=== PATIENT | female | born 1935 | race Two or more races ===

== ENCOUNTER → 2017-11-05 | Outpatient (CLI) | payer MEDICARE ==
[~2017-11-05] MED LIST: FUROSEMIDE 100 MG/10ML VIAL IV ONE; FUROSEMIDE 40 MG/4 ML VIAL ONE; POTASSIUM CHL 10 Meq TABLET PO ONE; POTASSIUM CHL 20 Meq TABLET PO ONE
[2017-11-05 10:00] VITALS: BP 167/68
[2017-11-05 10:50] VITALS: BP 149/68
[2017-11-05 12:07] LABS: Basophils # (auto) 0.1 uL; Basophils % (auto) 1.2 % (0.0-2.0); Eosinophils # (auto) 0.1 uL; Eosinophils % (auto) 2.2 % (0.0-7.0); Hematocrit 34.9 % (36.0-46.0); Hemoglobin 11.2 g/dL (12.2-16.2); Lymphocytes # (auto) 0.7 uL; Lymphocytes % (auto) 13.8 % (10.0-50.0); Mean Corpuscular Hemoglobin 28.7 pg (28.0-32.0); Mean Corpuscular Hgb Conc. 32.1 g/dL (32.0-36.0); Mean Corpuscular Volume 89.5 fL (80.0-100.0); Monocytes # (auto) 0.4 uL; Monocytes % (auto) 8.7 % (0.0-12.0); Neutrophils # (auto) 3.5 uL; Neutrophils % (auto) 74.1 % (37.0-80.0); Nucleated Red Blood Cells % 0.1 %; Platelet Count (auto) 313 10^3/uL (140-450); White Blood Cell 4.8 10^3/uL (4.4-10.8)
[2017-11-05 12:30] LABS: BUN/Creatinine Ratio 21.4; Calcium 8.4 mg/dL (8.5-10.1); Magnesium 2.3 mg/dL (1.6-2.6); Potassium 4.9 mmol/L (3.5-5.1)
== END | disposition home or self-care (01) ==
LOC: CHF HDHVI 10:05
PROVIDERS: ATTEND Internal Medicine Cardiovascular Disease
DX: I50.23 Acute on chronic systolic (congestive) heart failure (principal); D64.9 Anemia, unspecified; R60.0 Localized edema
CPT/HCPCS: 36415; 80048; 83735; 83880; 85025; 96374; G0463; J1940

== ENCOUNTER → 2017-11-10 | Outpatient (CLI) | payer MEDICARE ==
[~2017-11-10] MED LIST changes: -FUROSEMIDE 100 MG/10ML VIAL IV ONE; +FUROSEMIDE 20 MG/2 ML VIAL IV SCH; +FUROSEMIDE 20 MG/2 ML VIAL ONE; +FUROSEMIDE 40 MG TAB ONE
[2017-11-10 17:00] VITALS: BP 168/87
== END | disposition home or self-care (01) ==
LOC: CHF HDHVI 16:21
PROVIDERS: ATTEND Internal Medicine Cardiovascular Disease
DX: I11.0 Hypertensive heart disease with heart failure (principal); I50.23 Acute on chronic systolic (congestive) heart failure; I25.10 Atherosclerotic heart disease of native coronary artery without angina pectoris; R60.0 Localized edema; D64.9 Anemia, unspecified
CPT/HCPCS: 96374; G0463; J1940

== ENCOUNTER → 2017-11-11 | Outpatient (CLI) | payer MEDICARE ==
[~2017-11-11] MED LIST changes: -FUROSEMIDE 20 MG/2 ML VIAL IV SCH; -FUROSEMIDE 20 MG/2 ML VIAL ONE; -FUROSEMIDE 40 MG TAB ONE; +FUROSEMIDE 40 MG/4 ML VIAL IV ONE
[2017-11-11 15:25] VITALS: BP 172/86
[2017-11-11 16:05] VITALS: BP 164/88
[2017-11-11 16:07] VITALS: BP 164/88
[2017-11-11 16:12] LABS: Basophils # (auto) 0 uL; Eosinophils # (auto) 0.2 uL; Eosinophils % (auto) 3.6 % (0.0-7.0); Hematocrit 33.4 % (36.0-46.0); Hemoglobin 10.7 g/dL (12.2-16.2); Lymphocytes # (auto) 0.8 uL; Lymphocytes % (auto) 18.7 % (10.0-50.0); Mean Corpuscular Hemoglobin 28.4 pg (28.0-32.0); Mean Corpuscular Volume 88.7 fL (80.0-100.0); Monocytes # (auto) 0.5 uL; Monocytes % (auto) 10.9 % (0.0-12.0); Neutrophils # (auto) 2.7 uL; Neutrophils % (auto) 65.8 % (37.0-80.0); Platelet Count (auto) 365 10^3/uL (140-450); Red Blood Cells 3.76 10^6/uL (4.0-5.20); Red Cell Distribution Width 17.6 % (11.8-14.3); White Blood Cell 4.1 10^3/uL (4.4-10.8)
[2017-11-11 16:23] LABS: BUN/Creatinine Ratio 21.7; Calcium 8.1 mg/dL (8.5-10.1); Potassium 5.1 mmol/L (3.5-5.1)
== END | disposition home or self-care (01) ==
LOC: Rad HDHVI 14:45
PROVIDERS: ATTEND Internal Medicine Cardiovascular Disease
DX: I11.0 Hypertensive heart disease with heart failure (principal); I50.23 Acute on chronic systolic (congestive) heart failure; D64.9 Anemia, unspecified; I25.10 Atherosclerotic heart disease of native coronary artery without angina pectoris; R60.0 Localized edema; I42.0 Dilated cardiomyopathy; J90 Pleural effusion, not elsewhere classified; I08.1 Rheumatic disorders of both mitral and tricuspid valves; I27.21 Secondary pulmonary arterial hypertension
CPT/HCPCS: 36415; 80048; 85025; 93306; 96374; G0463; J1940

== ENCOUNTER → 2017-11-18 | Outpatient (CLI) | payer MEDICARE ==
[~2017-11-18] MED LIST changes: +BUMETANIDE (0.25MG/ML) 4 ML VIAL IV ONE; +BUMETANIDE (0.25MG/ML) 4 ML VIAL ONE; +CYANOCOBALAMIN (B-12) 1000 MCG/1 ML VIAL IM ONE; +CYANOCOBALAMIN (B-12) 1000 MCG/1 ML VIAL ONE; -FUROSEMIDE 40 MG/4 ML VIAL IV ONE; -FUROSEMIDE 40 MG/4 ML VIAL ONE; -POTASSIUM CHL 10 Meq TABLET PO ONE; -POTASSIUM CHL 20 Meq TABLET PO ONE; +cloNIDine HCL 0.1 MG TAB ONE; +cloNIDine HCL 0.1 MG TAB PO ONE
[2017-11-18 16:00] VITALS: BP 167/95
== END | disposition home or self-care (01) ==
LOC: CHF HDHVI 14:57
PROVIDERS: ATTEND Internal Medicine Cardiovascular Disease
DX: I11.0 Hypertensive heart disease with heart failure (principal); I50.23 Acute on chronic systolic (congestive) heart failure; I25.10 Atherosclerotic heart disease of native coronary artery without angina pectoris; I08.1 Rheumatic disorders of both mitral and tricuspid valves; I42.0 Dilated cardiomyopathy; R60.0 Localized edema
CPT/HCPCS: 96372; 96374; G0463; J3420

== ENCOUNTER → 2017-11-25 | Outpatient (CLI) | payer MEDICARE ==
[~2017-11-25] MED LIST changes: -BUMETANIDE (0.25MG/ML) 4 ML VIAL IV ONE; -BUMETANIDE (0.25MG/ML) 4 ML VIAL ONE; -CYANOCOBALAMIN (B-12) 1000 MCG/1 ML VIAL IM ONE; -CYANOCOBALAMIN (B-12) 1000 MCG/1 ML VIAL ONE; +FUROSEMIDE 40 MG/4 ML VIAL IV ONE; +FUROSEMIDE 40 MG/4 ML VIAL ONE; +POTASSIUM CHL 10 Meq TABLET PO ONE; -cloNIDine HCL 0.1 MG TAB ONE; -cloNIDine HCL 0.1 MG TAB PO ONE
[2017-11-25 09:50] VITALS: BP 154/86
[2017-11-25 10:50] VITALS: BP 166/91
[2017-11-25 12:11] LABS: Basophils # (auto) 0 uL; Basophils % (auto) 0.9 % (0.0-2.0); Eosinophils # (auto) 0.1 uL; Eosinophils % (auto) 3.5 % (0.0-7.0); Hematocrit 36.7 % (36.0-46.0); Hemoglobin 11.6 g/dL (12.2-16.2); Lymphocytes # (auto) 0.6 uL; Lymphocytes % (auto) 14.9 % (10.0-50.0); Mean Corpuscular Hgb Conc. 31.5 g/dL (32.0-36.0); Mean Corpuscular Volume 88.8 fL (80.0-100.0); Monocytes # (auto) 0.4 uL; Neutrophils # (auto) 2.8 uL; Neutrophils % (auto) 70.7 % (37.0-80.0); Nucleated Red Blood Cells % 0.3 %; Platelet Count (auto) 345 10^3/uL (140-450); Red Blood Cells 4.13 10^6/uL (4.0-5.20); Red Cell Distribution Width 17.2 % (11.8-14.3)
[2017-11-25 12:21] LABS: Potassium 4.6 mmol/L (3.5-5.1)
== END | disposition home or self-care (01) ==
LOC: CHF HDHVI 09:57
PROVIDERS: ATTEND Internal Medicine Cardiovascular Disease
DX: R60.0 Localized edema (principal); I11.0 Hypertensive heart disease with heart failure; I50.23 Acute on chronic systolic (congestive) heart failure; I25.10 Atherosclerotic heart disease of native coronary artery without angina pectoris; I42.0 Dilated cardiomyopathy; D64.9 Anemia, unspecified
CPT/HCPCS: 36415; 82565; 84132; 84520; 85025; 96374; G0463; J1940

== ENCOUNTER → 2017-12-04 | Outpatient (CLI) | payer MEDICARE ==
[~2017-12-04] MED LIST changes: -POTASSIUM CHL 10 Meq TABLET PO ONE; +POTASSIUM CHL 20 Meq TABLET PO ONE
[2017-12-04 15:20] VITALS: BP 182/100
[2017-12-04 15:53] VITALS: BP 179/100
== END | disposition home or self-care (01) ==
LOC: CHF HDHVI 15:19
PROVIDERS: ATTEND Internal Medicine Cardiovascular Disease
DX: R60.0 Localized edema (principal); I25.10 Atherosclerotic heart disease of native coronary artery without angina pectoris; I11.0 Hypertensive heart disease with heart failure; I50.23 Acute on chronic systolic (congestive) heart failure; I42.0 Dilated cardiomyopathy; E87.6 Hypokalemia
CPT/HCPCS: 96374; G0463; J1940

== ENCOUNTER → 2017-12-15 | Outpatient (CLI) | payer MEDICARE ==
[~2017-12-15] MED LIST changes: +FURO40TA4 PO; +FUROSEMIDE 40 MG TAB ONE; +LEVO25TA6 PO; +POTA-165 PO; +POTASSIUM CHL 10 Meq TABLET PO ONE; +SACU1TAB7 PO
[2017-12-15 16:20] VITALS: BP 172/95
== END | disposition home or self-care (01) ==
LOC: CHF HDHVI 15:15
PROVIDERS: ATTEND Internal Medicine Cardiovascular Disease
DX: R60.0 Localized edema (principal); I25.10 Atherosclerotic heart disease of native coronary artery without angina pectoris; I11.0 Hypertensive heart disease with heart failure; I50.23 Acute on chronic systolic (congestive) heart failure; E03.9 Hypothyroidism, unspecified; I42.0 Dilated cardiomyopathy; Z79.899 Other long term (current) drug therapy
CPT/HCPCS: 96374; G0463; J1940; 96365

== ENCOUNTER 2017-12-30 12:39 | Day surgery (SDC) | payer MEDICARE ==
[~2017-12-30] VITALS: Ht 152.4 cm; Wt 56.0 kg
[~2017-12-30 12:39] MED LIST changes: -FUROSEMIDE 40 MG TAB ONE; -FUROSEMIDE 40 MG/4 ML VIAL IV ONE; -FUROSEMIDE 40 MG/4 ML VIAL ONE; -POTASSIUM CHL 10 Meq TABLET PO ONE; -POTASSIUM CHL 20 Meq TABLET PO ONE
[2017-12-30] MEDS ORDERED: IODIXANOL 320MG/ML 100ML BTL IV ONE ×2 (12:42→14:18)
[2017-12-30] MEDS ORDERED: LIDOCAINE 2%HCL (LOCAL ANESTH.) INJ 10ml MDV ONE ×2 (12:42→14:15)
[2017-12-30] MEDS ORDERED: MIDAZOLAM HCL 1MG/1ML-2 ML VIAL ONE (14:15)
[2017-12-30] MEDS ORDERED: SODIUM CHL 0.9% 0 ML ONE (14:15)
[2017-12-30] MEDS ORDERED: fentaNYL CITRATE 100 MCG/2 ML VL ONE (14:15)
[2017-12-30] MEDS ORDERED: ANGIOMAX 250 MG VIAL IV ONE (14:15)
[2017-12-30] MEDS ORDERED: NITROGLYCERIN 0.4MG/DOSE SPRAY 4.9GM ONE (14:35)
[2017-12-30] MEDS ORDERED: cloNIDine HCL 0.1 MG TAB ONE (17:54)
[2017-12-30] MEDS ORDERED: cloNIDine HCL 0.1 MG TAB PO ONE (18:00)
== END 2017-12-30 19:15 | disposition home or self-care (01) ==
LOC: CATH 12:39
PROVIDERS: ATTEND Internal Medicine Cardiovascular Disease
DX: I42.0 Dilated cardiomyopathy (principal); I27.20 Pulmonary hypertension, unspecified; I11.9 Hypertensive heart disease without heart failure; I73.9 Peripheral vascular disease, unspecified; N28.9 Disorder of kidney and ureter, unspecified; Z82.49 Family history of ischemic heart disease and other diseases of the circulatory system; Z79.899 Other long term (current) drug therapy
CPT/HCPCS: 93460; C1760; C1894; J1644; J2001; J2250; J3010; J7030; Q9967; 99152; A6257

== ENCOUNTER → 2018-01-07 | Outpatient (CLI) | payer OTHER, MEDICAID ==
[~2018-01-07] MED LIST changes: +FUROSEMIDE 100 MG/10ML VIAL IV ONE; +FUROSEMIDE 40 MG/4 ML VIAL ONE; +POTASSIUM CHL 10 Meq TABLET PO ONE; +POTASSIUM CHL 20 Meq TABLET PO ONE
[2018-01-07 15:30] VITALS: BP 142/100
[2018-01-07 17:05] VITALS: BP 160/90
== END | disposition home or self-care (01) ==
LOC: CHF HDHVI 15:33
PROVIDERS: ATTEND Internal Medicine Cardiovascular Disease
DX: I42.9 Cardiomyopathy, unspecified (principal); I27.21 Secondary pulmonary arterial hypertension; R06.02 Shortness of breath; I11.0 Hypertensive heart disease with heart failure; I50.23 Acute on chronic systolic (congestive) heart failure; I25.10 Atherosclerotic heart disease of native coronary artery without angina pectoris; Z79.899 Other long term (current) drug therapy
CPT/HCPCS: 93701; 96374; G0463; J1940

== ENCOUNTER → 2018-01-16 | Outpatient (CLI) | payer OTHER, MEDICAID ==
[~2018-01-16] MED LIST changes: +CYANOCOBALAMIN (B-12) 1000 MCG/1 ML VIAL IM ONE; +CYANOCOBALAMIN (B-12) 1000 MCG/1 ML VIAL ONE; -FUROSEMIDE 100 MG/10ML VIAL IV ONE; -FUROSEMIDE 40 MG/4 ML VIAL ONE; -POTASSIUM CHL 10 Meq TABLET PO ONE; -POTASSIUM CHL 20 Meq TABLET PO ONE
[2018-01-16 14:00] VITALS: BP 157/85
[2018-01-16 14:45] VITALS: BP 150/80
[2018-01-16 15:54] LABS: Basophils # (auto) 0 uL; Basophils % (auto) 0.7 % (0.0-2.0); Eosinophils # (auto) 0.1 uL; Eosinophils % (auto) 2.7 % (0.0-7.0); Hematocrit 33.7 % (36.0-46.0); Hemoglobin 10.6 g/dL (12.2-16.2); Lymphocytes # (auto) 0.9 uL; Lymphocytes % (auto) 19.7 % (10.0-50.0); Mean Corpuscular Hemoglobin 28.1 pg (28.0-32.0); Mean Corpuscular Hgb Conc. 31.6 g/dL (32.0-36.0); Mean Corpuscular Volume 88.9 fL (80.0-100.0); Monocytes # (auto) 0.4 uL; Monocytes % (auto) 9.9 % (0.0-12.0); Nucleated Red Blood Cells % 0.2 %; Platelet Count (auto) 336 10^3/uL (140-450); Red Blood Cells 3.79 10^6/uL (4.0-5.20); Red Cell Distribution Width 16.1 % (11.8-14.3); White Blood Cell 4.4 10^3/uL (4.4-10.8)
[2018-01-16 16:16] LABS: Albumin 1.9 g/dL (3.4-5.0); BUN/Creatinine Ratio 23.2; Bilirubin, Total 0.3 mg/dL (0.2-1.0); Calcium 8.1 mg/dL (8.5-10.1); Magnesium 2.6 mg/dL (1.6-2.6); Potassium 4.4 mmol/L (3.5-5.1)
== END | disposition home or self-care (01) ==
LOC: CHF HDHVI 14:05
PROVIDERS: ATTEND Internal Medicine Cardiovascular Disease
DX: I27.21 Secondary pulmonary arterial hypertension (principal); D64.9 Anemia, unspecified; I11.0 Hypertensive heart disease with heart failure; I50.23 Acute on chronic systolic (congestive) heart failure; I25.10 Atherosclerotic heart disease of native coronary artery without angina pectoris; I42.0 Dilated cardiomyopathy; E03.9 Hypothyroidism, unspecified; E83.40 Disorders of magnesium metabolism, unspecified; Z79.899 Other long term (current) drug therapy
CPT/HCPCS: 36415; 80053; 82306; 83036; 83735; 83880; 84443; 85025; 96372; G0463; J3420

== ENCOUNTER → 2018-01-26 | Outpatient (CLI) | payer OTHER, MEDICAID ==
[~2018-01-26] VITALS: Ht 30.5 cm; Wt 0.5 kg
[~2018-01-26] MED LIST changes: -CYANOCOBALAMIN (B-12) 1000 MCG/1 ML VIAL IM ONE; -CYANOCOBALAMIN (B-12) 1000 MCG/1 ML VIAL ONE; +FUROSEMIDE 20 MG/2 ML VIAL ONE; +FUROSEMIDE 40 MG/4 ML VIAL ONE; +POTASSIUM CHL 10 Meq TABLET PO ONE
[2018-01-26 14:15] VITALS: BP 159/93
[2018-01-26] MEDS: FUROSEMIDE 20 MG/2 ML VIAL IV SCH (14:50)
[2018-01-26 15:15] VITALS: BP 160/90
[2018-01-26 16:18] LABS: Basophils # (auto) 0 uL; Basophils % (auto) 0.7 % (0.0-2.0); Eosinophils # (auto) 0.1 uL; Eosinophils % (auto) 2.7 % (0.0-7.0); Hematocrit 35.4 % (36.0-46.0); Hemoglobin 11.2 g/dL (12.2-16.2); Lymphocytes # (auto) 0.9 uL; Lymphocytes % (auto) 20.2 % (10.0-50.0); Mean Corpuscular Hgb Conc. 31.6 g/dL (32.0-36.0); Mean Corpuscular Volume 88.7 fL (80.0-100.0); Monocytes # (auto) 0.5 uL; Monocytes % (auto) 11.6 % (0.0-12.0); Neutrophils # (auto) 2.8 uL; Neutrophils % (auto) 64.8 % (37.0-80.0); Nucleated Red Blood Cells % 0.1 %; Platelet Count (auto) 325 10^3/uL (140-450); Red Blood Cells 3.99 10^6/uL (4.0-5.20); Red Cell Distribution Width 16.4 % (11.8-14.3); White Blood Cell 4.3 10^3/uL (4.4-10.8)
[2018-01-26 16:23] LABS: BUN/Creatinine Ratio 20.2; Calcium 8.1 mg/dL (8.5-10.1); Potassium 4.5 mmol/L (3.5-5.1)
== END | disposition home or self-care (01) ==
LOC: CHF HDHVI 14:02
PROVIDERS: ATTEND Internal Medicine Cardiovascular Disease
DX: I27.21 Secondary pulmonary arterial hypertension (principal); I25.10 Atherosclerotic heart disease of native coronary artery without angina pectoris; I11.0 Hypertensive heart disease with heart failure; I50.23 Acute on chronic systolic (congestive) heart failure; I42.0 Dilated cardiomyopathy; D64.9 Anemia, unspecified; E03.9 Hypothyroidism, unspecified; Z79.899 Other long term (current) drug therapy
CPT/HCPCS: 36415; 80048; 83880; 84443; 85025; 94618; 96374; G0463; J1940

== ENCOUNTER → 2018-02-03 | Outpatient (CLI) | payer MEDICARE, MEDICAID ==
[~2018-02-03] VITALS: Ht 30.5 cm; Wt 54.1 kg
[~2018-02-03] MED LIST changes: +FUROSEMIDE 20 MG/2 ML VIAL IV SCH; -FUROSEMIDE 40 MG/4 ML VIAL ONE; -POTA-165 PO; +POTA-180 PO
[2018-02-03 15:00] VITALS: BP 146/67
[2018-02-03 16:04] LABS: Potassium 4.2 mmol/L (3.5-5.1)
== END | disposition home or self-care (01) ==
LOC: CHF HDHVI 14:58
PROVIDERS: ATTEND Internal Medicine Cardiovascular Disease
DX: R94.4 Abnormal results of kidney function studies (principal); E87.6 Hypokalemia; I27.21 Secondary pulmonary arterial hypertension; I11.0 Hypertensive heart disease with heart failure; I50.23 Acute on chronic systolic (congestive) heart failure; I25.10 Atherosclerotic heart disease of native coronary artery without angina pectoris; I42.0 Dilated cardiomyopathy; E03.9 Hypothyroidism, unspecified; Z79.899 Other long term (current) drug therapy
CPT/HCPCS: 36415; 82565; 84132; 84520; 96374; G0463; J1940

== ENCOUNTER → 2018-02-09 | Outpatient (CLI) | payer MEDICARE, MEDICAID ==
[~2018-02-09] MED LIST changes: +AMIODARONE HCL 200 MG TAB ONE; +AMIODARONE HCL 200 MG TAB PO ONE; +ASPirin 325 MG TAB PO ONE; +ASPirin 81 mg TAB ONE; -FUROSEMIDE 20 MG/2 ML VIAL IV SCH; -FUROSEMIDE 20 MG/2 ML VIAL ONE; +MAGNESIUM SULFATE 1GM/100ML 100 ML IV ONE; +POTASSIUM CHL 20 Meq TABLET PO ONE
[2018-02-09 16:13] LABS: Basophils # (auto) 0 uL; Basophils % (auto) 0.7 % (0.0-2.0); Eosinophils # (auto) 0.1 uL; Hematocrit 31.4 % (36.0-46.0); Hemoglobin 9.9 g/dL (12.2-16.2); Lymphocytes # (auto) 0.9 uL; Lymphocytes % (auto) 21.6 % (10.0-50.0); Mean Corpuscular Hemoglobin 27.9 pg (28.0-32.0); Mean Corpuscular Hgb Conc. 31.7 g/dL (32.0-36.0); Mean Corpuscular Volume 88.1 fL (80.0-100.0); Monocytes # (auto) 0.6 uL; Monocytes % (auto) 13.5 % (0.0-12.0); Neutrophils # (auto) 2.6 uL; Neutrophils % (auto) 61.2 % (37.0-80.0); Nucleated Red Blood Cells % 0.1 %; Platelet Count (auto) 341 10^3/uL (140-450); Red Blood Cells 3.56 10^6/uL (4.0-5.20); Red Cell Distribution Width 15.6 % (11.8-14.3); White Blood Cell 4.2 10^3/uL (4.4-10.8)
[2018-02-09 16:15] VITALS: BP 116/71
[2018-02-09 16:30] LABS: Albumin 1.9 g/dL (3.4-5.0); BUN/Creatinine Ratio 18.3; Calcium 7.9 mg/dL (8.5-10.1); Magnesium 2.2 mg/dL (1.6-2.6)
[2018-02-09 16:36] LABS: Bilirubin, Total 0.3 mg/dL (0.2-1.0); Potassium 4.4 mmol/L (3.5-5.1); Total Protein 7.1 g/dL (6.4-8.2)
== END | disposition home or self-care (01) ==
LOC: CHF HDHVI 14:01
PROVIDERS: ATTEND Internal Medicine Cardiovascular Disease
DX: I11.0 Hypertensive heart disease with heart failure (principal); I50.43 Acute on chronic combined systolic (congestive) and diastolic (congestive) heart failure; I25.10 Atherosclerotic heart disease of native coronary artery without angina pectoris; E03.9 Hypothyroidism, unspecified; D64.9 Anemia, unspecified; I73.9 Peripheral vascular disease, unspecified
CPT/HCPCS: 36415; 80053; 83735; 83880; 85025; 93005; 96365; 96366; G0463; J3475

== ENCOUNTER → 2018-02-10 | Outpatient (CLI) | payer MEDICARE, MEDICAID ==
[~2018-02-10] VITALS: Ht 30.5 cm; Wt 0.5 kg
[~2018-02-10] MED LIST changes: -AMIODARONE HCL 200 MG TAB ONE; -AMIODARONE HCL 200 MG TAB PO ONE; -ASPirin 325 MG TAB PO ONE; -ASPirin 81 mg TAB ONE; +FUROSEMIDE INJECTION 10 ML ONE; +FUROSEMIDE INJECTION 100 MG in SODIUM CHL 0.9% 100 ML IV SCH; +InsuLIN REG 1unit/0.01ml Soln (100units/ml) ONE; -MAGNESIUM SULFATE 1GM/100ML 100 ML IV ONE; -POTASSIUM CHL 20 Meq TABLET PO ONE
[2018-02-10 15:30] VITALS: BP 152/74
== END | disposition home or self-care (01) ==
LOC: CHF HDHVI 12:18
PROVIDERS: ATTEND Internal Medicine Cardiovascular Disease
DX: I11.0 Hypertensive heart disease with heart failure (principal); I50.43 Acute on chronic combined systolic (congestive) and diastolic (congestive) heart failure; D64.9 Anemia, unspecified; E87.6 Hypokalemia; I25.10 Atherosclerotic heart disease of native coronary artery without angina pectoris; E03.9 Hypothyroidism, unspecified; I48.91 Unspecified atrial fibrillation; E87.70 Fluid overload, unspecified; I73.9 Peripheral vascular disease, unspecified; Z79.899 Other long term (current) drug therapy
CPT/HCPCS: 83880; 93005; 96365; 96366; G0463; J1940; J7040; J1815

== ENCOUNTER → 2018-02-12 | Outpatient (CLI) | payer MEDICARE, MEDICAID ==
[~2018-02-12] MED LIST changes: +FUROSEMIDE 100 MG/10ML VIAL IV ONE; -FUROSEMIDE INJECTION 100 MG in SODIUM CHL 0.9% 100 ML IV SCH; -InsuLIN REG 1unit/0.01ml Soln (100units/ml) ONE; +POTASSIUM CHL 20 Meq TABLET PO ONE
[2018-02-12 15:25] VITALS: BP 154/58
== END | disposition home or self-care (01) ==
LOC: CHF HDHVI 15:29
PROVIDERS: ATTEND Internal Medicine Cardiovascular Disease
DX: I11.0 Hypertensive heart disease with heart failure (principal); I50.43 Acute on chronic combined systolic (congestive) and diastolic (congestive) heart failure; D64.9 Anemia, unspecified; E87.70 Fluid overload, unspecified; I27.21 Secondary pulmonary arterial hypertension; I25.10 Atherosclerotic heart disease of native coronary artery without angina pectoris; I73.9 Peripheral vascular disease, unspecified; E03.9 Hypothyroidism, unspecified; Z79.899 Other long term (current) drug therapy
CPT/HCPCS: 96365; 96366; G0463; J1940

== ENCOUNTER → 2018-02-17 | Outpatient (CLI) | payer MEDICARE, MEDICAID ==
[~2018-02-17] MED LIST changes: -FUROSEMIDE 100 MG/10ML VIAL IV ONE; +FUROSEMIDE INJECTION 100 MG in SODIUM CHL 0.9% 100 ML IV SCH
[2018-02-17 09:30] VITALS: BP 156/72
[2018-02-17 10:00] VITALS: BP 150/71
[2018-02-17 10:30] VITALS: BP 175/88
[2018-02-17 11:00] VITALS: BP 173/80
[2018-02-17 12:00] VITALS: BP 168/74
[2018-02-17 12:33] LABS: Basophils # (auto) 0 uL; Basophils % (auto) 0.9 % (0.0-2.0); Eosinophils # (auto) 0.2 uL; Eosinophils % (auto) 3.9 % (0.0-7.0); Hematocrit 31.5 % (36.0-46.0); Hemoglobin 10.1 g/dL (12.2-16.2); Lymphocytes # (auto) 0.9 uL; Lymphocytes % (auto) 21.3 % (10.0-50.0); Mean Corpuscular Hemoglobin 28.2 pg (28.0-32.0); Mean Corpuscular Hgb Conc. 32.1 g/dL (32.0-36.0); Mean Corpuscular Volume 87.8 fL (80.0-100.0); Monocytes # (auto) 0.4 uL; Monocytes % (auto) 9.7 % (0.0-12.0); Neutrophils # (auto) 2.6 uL; Neutrophils % (auto) 64.2 % (37.0-80.0); Platelet Count (auto) 403 10^3/uL (140-450); Red Blood Cells 3.59 10^6/uL (4.0-5.20); Red Cell Distribution Width 16.3 % (11.8-14.3)
[2018-02-17 13:05] LABS: Albumin 2.3 g/dL (3.4-5.0); BUN/Creatinine Ratio 20.7; Bilirubin, Total 0.3 mg/dL (0.2-1.0); Calcium 8.7 mg/dL (8.5-10.1); Potassium 4.3 mmol/L (3.5-5.1); Total Protein 7.8 g/dL (6.4-8.2)
== END | disposition home or self-care (01) ==
LOC: CHF HDHVI 08:38
PROVIDERS: ATTEND Internal Medicine Cardiovascular Disease
DX: E87.70 Fluid overload, unspecified (principal); I48.91 Unspecified atrial fibrillation; I11.0 Hypertensive heart disease with heart failure; I50.43 Acute on chronic combined systolic (congestive) and diastolic (congestive) heart failure; I25.10 Atherosclerotic heart disease of native coronary artery without angina pectoris; E03.9 Hypothyroidism, unspecified; Z79.899 Other long term (current) drug therapy
CPT/HCPCS: 36415; 80053; 83880; 85025; 96365; 96366; G0463; J1940

== ENCOUNTER → 2018-02-24 | Outpatient (CLI) | payer MEDICARE, MEDICAID ==
[~2018-02-24] MED LIST changes: -FUROSEMIDE INJECTION 10 ML ONE; -FUROSEMIDE INJECTION 100 MG in SODIUM CHL 0.9% 100 ML IV SCH; -POTASSIUM CHL 10 Meq TABLET PO ONE; -POTASSIUM CHL 20 Meq TABLET PO ONE
[2018-02-24 08:30] VITALS: BP 148/44
[2018-02-24 09:15] VITALS: BP 142/60
[2018-02-24 12:22] LABS: Basophils # (auto) 0 uL; Basophils % (auto) 0.7 % (0.0-2.0); Eosinophils # (auto) 0.2 uL; Eosinophils % (auto) 3.6 % (0.0-7.0); Hematocrit 31.8 % (36.0-46.0); Lymphocytes # (auto) 0.9 uL; Lymphocytes % (auto) 19.4 % (10.0-50.0); Mean Corpuscular Hgb Conc. 31.5 g/dL (32.0-36.0); Mean Corpuscular Volume 89.1 fL (80.0-100.0); Monocytes # (auto) 0.4 uL; Monocytes % (auto) 9.2 % (0.0-12.0); Neutrophils % (auto) 67.1 % (37.0-80.0); Nucleated Red Blood Cells % 0.5 %; Platelet Count (auto) 368 10^3/uL (140-450); Red Blood Cells 3.57 10^6/uL (4.0-5.20); Red Cell Distribution Width 16.5 % (11.8-14.3); White Blood Cell 4.5 10^3/uL (4.4-10.8)
[2018-02-24 13:13] LABS: BUN/Creatinine Ratio 22.1; Calcium 8.6 mg/dL (8.5-10.1); Potassium 4.4 mmol/L (3.5-5.1)
== END | disposition home or self-care (01) ==
LOC: CHF HDHVI 08:27
PROVIDERS: ATTEND Internal Medicine Cardiovascular Disease
DX: I11.0 Hypertensive heart disease with heart failure (principal); I50.23 Acute on chronic systolic (congestive) heart failure; I27.21 Secondary pulmonary arterial hypertension; D64.9 Anemia, unspecified; E87.70 Fluid overload, unspecified; R53.83 Other fatigue
CPT/HCPCS: 36415; 80048; 83880; 85025; G0463

== ENCOUNTER → 2018-03-03 | Outpatient (CLI) | payer MEDICARE, MEDICAID ==
[~2018-03-03] MED LIST changes: +CYANOCOBALAMIN (B-12) 1000 MCG/1 ML VIAL IM ONE; +CYANOCOBALAMIN (B-12) 1000 MCG/1 ML VIAL ONE
[2018-03-03 08:20] VITALS: BP 143/58
[2018-03-03 09:15] VITALS: BP 148/61
[2018-03-03 12:23] LABS: Basophils # (auto) 0 uL; Basophils % (auto) 0.8 % (0.0-2.0); Eosinophils # (auto) 0.2 uL; Eosinophils % (auto) 4.6 % (0.0-7.0); Hematocrit 30.7 % (36.0-46.0); Hemoglobin 9.7 g/dL (12.2-16.2); Lymphocytes # (auto) 0.9 uL; Lymphocytes % (auto) 20.8 % (10.0-50.0); Mean Corpuscular Hemoglobin 27.8 pg (28.0-32.0); Mean Corpuscular Hgb Conc. 31.8 g/dL (32.0-36.0); Mean Corpuscular Volume 87.4 fL (80.0-100.0); Monocytes # (auto) 0.4 uL; Monocytes % (auto) 10.1 % (0.0-12.0); Neutrophils # (auto) 2.7 uL; Neutrophils % (auto) 63.7 % (37.0-80.0); Nucleated Red Blood Cells % 0.5 %; Platelet Count (auto) 316 10^3/uL (140-450); Red Blood Cells 3.51 10^6/uL (4.0-5.20); Red Cell Distribution Width 16.5 % (11.8-14.3); White Blood Cell 4.3 10^3/uL (4.4-10.8)
[2018-03-03 12:26] LABS: Magnesium 2.2 mg/dL (1.6-2.6); Potassium 4.6 mmol/L (3.5-5.1)
== END | disposition home or self-care (01) ==
LOC: CHF HDHVI 08:29
PROVIDERS: ATTEND Internal Medicine Cardiovascular Disease
DX: E87.6 Hypokalemia (principal); R84.4 Abnormal immunological findings in specimens from respiratory organs and thorax; D64.9 Anemia, unspecified; E83.40 Disorders of magnesium metabolism, unspecified; I27.21 Secondary pulmonary arterial hypertension; I11.0 Hypertensive heart disease with heart failure; I50.43 Acute on chronic combined systolic (congestive) and diastolic (congestive) heart failure; I25.10 Atherosclerotic heart disease of native coronary artery without angina pectoris; E03.9 Hypothyroidism, unspecified; I48.91 Unspecified atrial fibrillation; Z79.899 Other long term (current) drug therapy
CPT/HCPCS: 36415; 82565; 83735; 84132; 84520; 85025; 96372; G0463; J3420

== ENCOUNTER → 2018-03-10 | Outpatient (CLI) | payer MEDICARE, MEDICAID ==
[~2018-03-10] MED LIST changes: -CYANOCOBALAMIN (B-12) 1000 MCG/1 ML VIAL IM ONE; +SODIUM CHLORIDE 0.9% 1,000 ML IV SCH
[2018-03-10 09:30] VITALS: BP 123/58
[2018-03-10 10:00] VITALS: BP 141/48
[2018-03-10 11:00] VITALS: BP 152/59
[2018-03-10 11:30] VITALS: BP 131/62
[2018-03-10 12:00] VITALS: BP 147/47
[2018-03-10 12:21] LABS: Potassium 4.3 mmol/L (3.5-5.1)
== END | disposition home or self-care (01) ==
LOC: CHF HDHVI 08:40
PROVIDERS: ATTEND Internal Medicine Cardiovascular Disease
DX: E87.6 Hypokalemia (principal); R94.4 Abnormal results of kidney function studies; I11.0 Hypertensive heart disease with heart failure; I50.43 Acute on chronic combined systolic (congestive) and diastolic (congestive) heart failure; I25.10 Atherosclerotic heart disease of native coronary artery without angina pectoris; I48.91 Unspecified atrial fibrillation; E03.9 Hypothyroidism, unspecified; Z79.899 Other long term (current) drug therapy; I73.9 Peripheral vascular disease, unspecified
CPT/HCPCS: 36415; 82565; 83880; 84132; 84520; 93701; 96360; 96361; G0463; J7030

== ENCOUNTER → 2018-03-12 | Outpatient (CLI) | payer MEDICARE, MEDICAID ==
[2018-03-12] VITALS (7 sets, daily range): BP systolic 104–147; BP diastolic 35–58
[~2018-03-12] MED LIST changes: +CYANOCOBALAMIN (B-12) 1000 MCG/1 ML VIAL IM ONE; -SODIUM CHLORIDE 0.9% 1,000 ML IV SCH; +SODIUM CHLORIDE 0.9% 500 ML IV ONE
[2018-03-12 13:55] LABS: Potassium 4.3 mmol/L (3.5-5.1)
[2018-03-12 14:37] LABS: BUN/Creatinine Ratio 24.2; Calcium 8.5 mg/dL (8.5-10.1)
== END | disposition home or self-care (01) ==
LOC: CHF HDHVI 08:32
PROVIDERS: ATTEND Internal Medicine Cardiovascular Disease
DX: I11.0 Hypertensive heart disease with heart failure (principal); I50.43 Acute on chronic combined systolic (congestive) and diastolic (congestive) heart failure; I48.91 Unspecified atrial fibrillation; I25.10 Atherosclerotic heart disease of native coronary artery without angina pectoris; D64.9 Anemia, unspecified; R94.4 Abnormal results of kidney function studies; E03.9 Hypothyroidism, unspecified; I42.0 Dilated cardiomyopathy; I73.9 Peripheral vascular disease, unspecified; E87.6 Hypokalemia; N28.9 Disorder of kidney and ureter, unspecified; Z79.899 Other long term (current) drug therapy
CPT/HCPCS: 36415; 80048; 83880; 96360; 96361; 96372; G0463; J3420; J7040

== ENCOUNTER → 2018-03-17 | Outpatient (CLI) | payer MEDICARE, MEDICAID ==
[~2018-03-17] MED LIST changes: -CYANOCOBALAMIN (B-12) 1000 MCG/1 ML VIAL IM ONE; -CYANOCOBALAMIN (B-12) 1000 MCG/1 ML VIAL ONE; +MVI in SODIUM CHLORIDE 0.9% 1,010 ML ONE; +MVI in SODIUM CHLORIDE 0.9% 500 ML IVB ONE; -SODIUM CHLORIDE 0.9% 500 ML IV ONE
[2018-03-17 10:05] LABS: Basophils # (auto) 0 uL; Basophils % (auto) 0.9 % (0.0-2.0); Eosinophils # (auto) 0.2 uL; Eosinophils % (auto) 5.3 % (0.0-7.0); Hematocrit 30.5 % (36.0-46.0); Hemoglobin 9.9 g/dL (12.2-16.2); Lymphocytes # (auto) 0.9 uL; Lymphocytes % (auto) 20.7 % (10.0-50.0); Mean Corpuscular Hemoglobin 28.2 pg (28.0-32.0); Mean Corpuscular Hgb Conc. 32.3 g/dL (32.0-36.0); Mean Corpuscular Volume 87.3 fL (80.0-100.0); Monocytes # (auto) 0.4 uL; Monocytes % (auto) 9.4 % (0.0-12.0); Neutrophils # (auto) 2.8 uL; Neutrophils % (auto) 63.7 % (37.0-80.0); Platelet Count (auto) 295 10^3/uL (140-450); Red Cell Distribution Width 16.9 % (11.8-14.3); White Blood Cell 4.3 10^3/uL (4.4-10.8)
[2018-03-17 10:07] LABS: Calcium 8.6 mg/dL (8.5-10.1)
[2018-03-17 10:08] LABS: BUN/Creatinine Ratio 25.7
[2018-03-17 11:45] VITALS: BP 133/49
== END | disposition home or self-care (01) ==
LOC: CHF HDHVI 08:27
PROVIDERS: ATTEND Internal Medicine Cardiovascular Disease
DX: I11.0 Hypertensive heart disease with heart failure (principal); I50.43 Acute on chronic combined systolic (congestive) and diastolic (congestive) heart failure; D64.9 Anemia, unspecified; I25.10 Atherosclerotic heart disease of native coronary artery without angina pectoris; N28.9 Disorder of kidney and ureter, unspecified; I48.91 Unspecified atrial fibrillation; I42.0 Dilated cardiomyopathy; I42.8 Other cardiomyopathies; I73.9 Peripheral vascular disease, unspecified; R84.5 Abnormal microbiological findings in specimens from respiratory organs and thorax; E86.0 Dehydration; E83.40 Disorders of magnesium metabolism, unspecified; E03.9 Hypothyroidism, unspecified; E87.70 Fluid overload, unspecified; Z79.899 Other long term (current) drug therapy
CPT/HCPCS: 36415; 80048; 83880; 85025; 96365; 96366; G0463; J3411; J3475

== ENCOUNTER → 2018-03-24 | Outpatient (CLI) | payer MEDICARE, MEDICAID ==
[~2018-03-24] MED LIST changes: -MVI in SODIUM CHLORIDE 0.9% 1,010 ML ONE; -MVI in SODIUM CHLORIDE 0.9% 500 ML IVB ONE
[2018-03-24 08:15] VITALS: BP 105/48
[2018-03-24 09:06] VITALS: BP 115/49
[2018-03-24 11:59] LABS: Basophils # (auto) 0 uL; Basophils % (auto) 0.6 % (0.0-2.0); Eosinophils # (auto) 0.1 uL; Eosinophils % (auto) 3.2 % (0.0-7.0); Hematocrit 32.1 % (36.0-46.0); Hemoglobin 10.2 g/dL (12.2-16.2); Mean Corpuscular Hemoglobin 28.3 pg (28.0-32.0); Mean Corpuscular Hgb Conc. 31.9 g/dL (32.0-36.0); Mean Corpuscular Volume 88.7 fL (80.0-100.0); Monocytes # (auto) 0.3 uL; Monocytes % (auto) 7.3 % (0.0-12.0); Neutrophils # (auto) 3.1 uL; Neutrophils % (auto) 66.9 % (37.0-80.0); Nucleated Red Blood Cells % 0.5 %; Platelet Count (auto) 346 10^3/uL (140-450); Red Blood Cells 3.63 10^6/uL (4.0-5.20); Red Cell Distribution Width 17.3 % (11.8-14.3); White Blood Cell 4.6 10^3/uL (4.4-10.8)
[2018-03-24 12:17] LABS: BUN/Creatinine Ratio 26.2; Calcium 8.6 mg/dL (8.5-10.1); Magnesium 2.3 mg/dL (1.6-2.6); Potassium 4.7 mmol/L (3.5-5.1)
== END | disposition home or self-care (01) ==
LOC: CHF HDHVI 09:03
PROVIDERS: ATTEND Internal Medicine Cardiovascular Disease
DX: I27.21 Secondary pulmonary arterial hypertension (principal); N28.9 Disorder of kidney and ureter, unspecified; E83.40 Disorders of magnesium metabolism, unspecified; D64.9 Anemia, unspecified; I11.0 Hypertensive heart disease with heart failure; I50.9 Heart failure, unspecified
CPT/HCPCS: 36415; 80048; 82306; 83735; 83880; 85025; 94618; G0463

== ENCOUNTER → 2018-03-26 | Outpatient (CLI) | payer MEDICARE, MEDICAID ==
[2018-03-26] VITALS (9 sets, daily range): BP systolic 100–164; BP diastolic 34–55
[~2018-03-26] MED LIST changes: +SODIUM CHLORIDE 0.9% 1,000 ML IV SCH
== END | disposition home or self-care (01) ==
LOC: CHF HDHVI 08:52
PROVIDERS: ATTEND Internal Medicine Cardiovascular Disease
DX: I11.0 Hypertensive heart disease with heart failure (principal); I50.43 Acute on chronic combined systolic (congestive) and diastolic (congestive) heart failure; E87.70 Fluid overload, unspecified; I25.10 Atherosclerotic heart disease of native coronary artery without angina pectoris; I42.8 Other cardiomyopathies; I73.9 Peripheral vascular disease, unspecified; I42.0 Dilated cardiomyopathy; I48.91 Unspecified atrial fibrillation; E03.9 Hypothyroidism, unspecified; E87.6 Hypokalemia; R94.4 Abnormal results of kidney function studies; E83.40 Disorders of magnesium metabolism, unspecified; N28.9 Disorder of kidney and ureter, unspecified; R89.4 Abnormal immunological findings in specimens from other organs, systems and tissues; Z79.899 Other long term (current) drug therapy
CPT/HCPCS: 96360; 96361; G0463; J7030; 96366

== ENCOUNTER → 2018-04-09 | Outpatient (CLI) | payer MEDICARE, MEDICAID ==
[~2018-04-09] MED LIST changes: +MACI1TAB2 PO; +RIOC1TAB PO; -SODIUM CHLORIDE 0.9% 1,000 ML IV SCH
[2018-04-09 11:15] VITALS: BP 143/53
[2018-04-09 12:00] VITALS: BP 135/55
[2018-04-09 15:50] LABS: Basophils # (auto) 0 uL; Basophils % (auto) 0.6 % (0.0-2.0); Eosinophils # (auto) 0.2 uL; Eosinophils % (auto) 4.5 % (0.0-7.0); Hemoglobin 9.3 g/dL (12.2-16.2); Lymphocytes # (auto) 0.8 uL; Lymphocytes % (auto) 14.5 % (10.0-50.0); Mean Corpuscular Hemoglobin 28.5 pg (28.0-32.0); Mean Corpuscular Volume 88.9 fL (80.0-100.0); Monocytes # (auto) 0.6 uL; Monocytes % (auto) 10.7 % (0.0-12.0); Neutrophils # (auto) 3.6 uL; Neutrophils % (auto) 69.7 % (37.0-80.0); Nucleated Red Blood Cells % 0.6 %; Platelet Count (auto) 353 10^3/uL (140-450); Red Blood Cells 3.27 10^6/uL (4.0-5.20); Red Cell Distribution Width 17.2 % (11.8-14.3); White Blood Cell 5.2 10^3/uL (4.4-10.8)
[2018-04-09 15:59] LABS: Albumin 2.7 g/dL (3.4-5.0); Anion Gap 8 (5-15); Blood Urea Nitrogen 52 mg/dL (7-18); Calcium 8.7 mg/dL (8.5-10.1); Carbon Dioxide 23 mmol/L (21-32); Chloride 108 mmol/L (98-107); Glucose 128 mg/dL (74-106); Potassium 5.4 mmol/L (3.5-5.1); Sodium 139 mmol/L (136-145)
[2018-04-09 16:04] LABS: Alanine Aminotransferase 22 U/L (13-56); Alkaline Phosphatase 96 U/L (45-117); Aspartate Aminotransferase 20 U/L (15-37); BUN/Creatinine Ratio 26.4; Bilirubin, Direct < 0.1 mg/dL (0-0.2); Bilirubin, Total 0.2 mg/dL (0.2-1.0); GFR African American 31 mL/min; GFR Non-African American 26 mL/min; Total Protein 7.7 g/dL (6.4-8.2)
== END | disposition home or self-care (01) ==
LOC: Rad HDHVI 11:29
PROVIDERS: ATTEND Internal Medicine Cardiovascular Disease
DX: I08.1 Rheumatic disorders of both mitral and tricuspid valves (principal); D64.9 Anemia, unspecified; I11.0 Hypertensive heart disease with heart failure; I50.23 Acute on chronic systolic (congestive) heart failure; K74.1 Hepatic sclerosis; I48.0 Paroxysmal atrial fibrillation; J98.4 Other disorders of lung; J90 Pleural effusion, not elsewhere classified
CPT/HCPCS: 36415; 80048; 80076; 83880; 85025; 93306; G0463

== ENCOUNTER → 2018-04-14 | Outpatient (CLI) | payer MEDICARE, MEDICAID ==
[~2018-04-14] MED LIST changes: +CYANOCOBALAMIN (B-12) 1000 MCG/1 ML VIAL IM ONE; +CYANOCOBALAMIN (B-12) 1000 MCG/1 ML VIAL ONE
[2018-04-14 08:00] VITALS: BP 157/62
[2018-04-14 09:07] VITALS: BP 155/77
[2018-04-14 12:32] LABS: Basophils # (auto) 0 uL; Basophils % (auto) 0.9 % (0.0-2.0); Eosinophils # (auto) 0.3 uL; Eosinophils % (auto) 5.6 % (0.0-7.0); Hematocrit 31.1 % (36.0-46.0); Hemoglobin 10.6 g/dL (12.2-16.2); Lymphocytes % (auto) 22.6 % (10.0-50.0); Mean Corpuscular Hemoglobin 30.4 pg (28.0-32.0); Mean Corpuscular Volume 89.3 fL (80.0-100.0); Monocytes # (auto) 0.4 uL; Monocytes % (auto) 7.7 % (0.0-12.0); Neutrophils # (auto) 2.9 uL; Neutrophils % (auto) 63.2 % (37.0-80.0); Nucleated Red Blood Cells % 0.1 %; Platelet Count (auto) 352 10^3/uL (140-450); Red Blood Cells 3.48 10^6/uL (4.0-5.20); Red Cell Distribution Width 17.8 % (11.8-14.3); White Blood Cell 4.6 10^3/uL (4.4-10.8)
[2018-04-14 12:48] LABS: BUN/Creatinine Ratio 27.4; Calcium 9.1 mg/dL (8.5-10.1); Potassium 4.6 mmol/L (3.5-5.1)
== END | disposition home or self-care (01) ==
LOC: CHF HDHVI 08:55
PROVIDERS: ATTEND Internal Medicine Cardiovascular Disease
DX: I11.0 Hypertensive heart disease with heart failure (principal); I50.23 Acute on chronic systolic (congestive) heart failure; D51.9 Vitamin B12 deficiency anemia, unspecified; I50.43 Acute on chronic combined systolic (congestive) and diastolic (congestive) heart failure; R94.4 Abnormal results of kidney function studies; I25.10 Atherosclerotic heart disease of native coronary artery without angina pectoris; I42.0 Dilated cardiomyopathy; K74.1 Hepatic sclerosis; E83.40 Disorders of magnesium metabolism, unspecified; N28.9 Disorder of kidney and ureter, unspecified; E87.6 Hypokalemia; E03.9 Hypothyroidism, unspecified; I42.8 Other cardiomyopathies; I27.21 Secondary pulmonary arterial hypertension; I73.9 Peripheral vascular disease, unspecified; I48.91 Unspecified atrial fibrillation; I08.1 Rheumatic disorders of both mitral and tricuspid valves; R89.4 Abnormal immunological findings in specimens from other organs, systems and tissues; R84.9 Unspecified abnormal finding in specimens from respiratory organs and thorax; Z79.899 Other long term (current) drug therapy
CPT/HCPCS: 36415; 80048; 82607; 83880; 85025; 93701; 96372; G0463; J3420

== ENCOUNTER → 2018-04-16 | Outpatient (CLI) | payer MEDICARE, MEDICAID ==
[~2018-04-16] MED LIST changes: -CYANOCOBALAMIN (B-12) 1000 MCG/1 ML VIAL IM ONE; -CYANOCOBALAMIN (B-12) 1000 MCG/1 ML VIAL ONE
[2018-04-16 08:15] VITALS: BP 160/65
[2018-04-16 08:57] VITALS: BP 155/68
[2018-04-16 12:18] LABS: Basophils # (auto) 0 uL; Basophils % (auto) 0.4 % (0.0-2.0); Eosinophils # (auto) 0.3 uL; Eosinophils % (auto) 5.8 % (0.0-7.0); Hematocrit 29.9 % (36.0-46.0); Hemoglobin 9.6 g/dL (12.2-16.2); Lymphocytes % (auto) 21.1 % (10.0-50.0); Mean Corpuscular Hemoglobin 28.9 pg (28.0-32.0); Mean Corpuscular Hgb Conc. 32.2 g/dL (32.0-36.0); Mean Corpuscular Volume 89.8 fL (80.0-100.0); Monocytes # (auto) 0.5 uL; Monocytes % (auto) 9.6 % (0.0-12.0); Neutrophils # (auto) 3.1 uL; Neutrophils % (auto) 63.1 % (37.0-80.0); Nucleated Red Blood Cells % 0.6 %; Platelet Count (auto) 342 10^3/uL (140-450); Red Blood Cells 3.33 10^6/uL (4.0-5.20); Red Cell Distribution Width 17.2 % (11.8-14.3); White Blood Cell 4.9 10^3/uL (4.4-10.8)
[2018-04-16 12:21] LABS: INR 0.97 (0.9-1.15); Partial Thromboplastin Time 29.5 sec (23.78-33.04); Prothrombin Time 10.4 sec (9.27-12.13)
[2018-04-16 12:24] LABS: Calcium 8.9 mg/dL (8.5-10.1); Potassium 4.5 mmol/L (3.5-5.1)
[2018-04-16 12:26] LABS: BUN/Creatinine Ratio 22.8
== END | disposition home or self-care (01) ==
LOC: CHF HDHVI 08:15
PROVIDERS: ATTEND Internal Medicine Cardiovascular Disease
DX: Z01.818 Encounter for other preprocedural examination (principal); D64.9 Anemia, unspecified; R79.1 Abnormal coagulation profile; I11.0 Hypertensive heart disease with heart failure; I50.9 Heart failure, unspecified; I27.20 Pulmonary hypertension, unspecified; I49.5 Sick sinus syndrome; R94.31 Abnormal electrocardiogram [ECG] [EKG]
CPT/HCPCS: 36415; 80048; 85025; 85610; 85730; 93005; G0463

== ENCOUNTER → 2018-04-29 | Outpatient (CLI) | payer MEDICARE, MEDICAID ==
[~2018-04-29] MED LIST changes: -FURO40TA4 PO; -POTA-180 PO
[2018-04-29 09:10] VITALS: BP 174/70
[2018-04-29 09:50] VITALS: BP 169/56
[2018-04-29 12:06] LABS: Basophils # (auto) 0.1 uL; Eosinophils # (auto) 0.3 uL; Eosinophils % (auto) 5.3 % (0.0-7.0); Hemoglobin 9.2 g/dL (12.2-16.2); Lymphocytes # (auto) 1.1 uL; Lymphocytes % (auto) 18.9 % (10.0-50.0); Mean Corpuscular Hemoglobin 29.5 pg (28.0-32.0); Mean Corpuscular Hgb Conc. 32.9 g/dL (32.0-36.0); Mean Corpuscular Volume 89.6 fL (80.0-100.0); Monocytes # (auto) 0.5 uL; Monocytes % (auto) 9.7 % (0.0-12.0); Neutrophils # (auto) 3.7 uL; Neutrophils % (auto) 65.1 % (37.0-80.0); Nucleated Red Blood Cells % 0.1 %; Platelet Count (auto) 345 10^3/uL (140-450); Red Blood Cells 3.13 10^6/uL (4.0-5.20); Red Cell Distribution Width 17.3 % (11.8-14.3); White Blood Cell 5.6 10^3/uL (4.4-10.8)
[2018-04-29 12:29] LABS: BUN/Creatinine Ratio 31.3; Magnesium 2.3 mg/dL (1.6-2.6); Potassium 4.4 mmol/L (3.5-5.1)
== END | disposition home or self-care (01) ==
LOC: CHF HDHVI 09:14
PROVIDERS: ATTEND Internal Medicine Cardiovascular Disease
DX: I11.0 Hypertensive heart disease with heart failure (principal); I50.23 Acute on chronic systolic (congestive) heart failure; D64.9 Anemia, unspecified; E83.40 Disorders of magnesium metabolism, unspecified; I27.20 Pulmonary hypertension, unspecified
CPT/HCPCS: 36415; 80048; 83735; 83880; 85025; 93701; G0463

== ENCOUNTER → 2018-05-05 | Outpatient (CLI) | payer MEDICARE, MEDICAID ==
[2018-05-05 09:30] VITALS: BP 140/46
[2018-05-05 09:50] VITALS: BP 138/41
== END | disposition home or self-care (01) ==
LOC: CHF HDHVI 09:56
PROVIDERS: ATTEND Internal Medicine Cardiovascular Disease
DX: Z48.812 Encounter for surgical aftercare following surgery on the circulatory system (principal); Z95.0 Presence of cardiac pacemaker
CPT/HCPCS: G0463

== ENCOUNTER → 2018-05-12 | Outpatient (CLI) | payer MEDICARE, MEDICAID ==
[~2018-05-12] MED LIST changes: +CYANOCOBALAMIN (B-12) 1000 MCG/1 ML VIAL IM ONE; +CYANOCOBALAMIN (B-12) 1000 MCG/1 ML VIAL ONE
[2018-05-12 09:50] VITALS: BP 137/56
[2018-05-12 10:30] VITALS: BP 133/51
[2018-05-12 12:12] LABS: Basophils # (auto) 0 uL; Eosinophils # (auto) 0.2 uL; Eosinophils % (auto) 3.6 % (0.0-7.0); Hematocrit 27.6 % (36.0-46.0); Hemoglobin 8.9 g/dL (12.2-16.2); Lymphocytes # (auto) 1.1 uL; Lymphocytes % (auto) 21.8 % (10.0-50.0); Mean Corpuscular Hemoglobin 28.9 pg (28.0-32.0); Mean Corpuscular Hgb Conc. 32.1 g/dL (32.0-36.0); Mean Corpuscular Volume 90.1 fL (80.0-100.0); Monocytes # (auto) 0.3 uL; Neutrophils # (auto) 3.2 uL; Neutrophils % (auto) 66.6 % (37.0-80.0); Platelet Count (auto) 325 10^3/uL (140-450); Red Blood Cells 3.06 10^6/uL (4.0-5.20); White Blood Cell 4.8 10^3/uL (4.4-10.8)
[2018-05-12 12:22] LABS: Calcium 8.6 mg/dL (8.5-10.1); Potassium 4.8 mmol/L (3.5-5.1)
[2018-05-12 12:25] LABS: BUN/Creatinine Ratio 30.2
== END | disposition home or self-care (01) ==
LOC: CHF HDHVI 10:10
PROVIDERS: ATTEND Internal Medicine Cardiovascular Disease
DX: D51.9 Vitamin B12 deficiency anemia, unspecified (principal); I11.0 Hypertensive heart disease with heart failure; I50.42 Chronic combined systolic (congestive) and diastolic (congestive) heart failure; E87.70 Fluid overload, unspecified; E11.9 Type 2 diabetes mellitus without complications; I25.10 Atherosclerotic heart disease of native coronary artery without angina pectoris; J44.9 Chronic obstructive pulmonary disease, unspecified; E78.5 Hyperlipidemia, unspecified; I25.2 Old myocardial infarction; E03.9 Hypothyroidism, unspecified; I48.0 Paroxysmal atrial fibrillation; Z79.899 Other long term (current) drug therapy; Z95.0 Presence of cardiac pacemaker
CPT/HCPCS: 36415; 80048; 83880; 85025; 96372; G0463; J3420

== ENCOUNTER → 2018-05-19 | Outpatient (CLI) | payer MEDICARE, MEDICAID ==
[~2018-05-19] MED LIST changes: -CYANOCOBALAMIN (B-12) 1000 MCG/1 ML VIAL IM ONE; -CYANOCOBALAMIN (B-12) 1000 MCG/1 ML VIAL ONE
[2018-05-19 12:38] LABS: Basophils # (auto) 0 uL; Basophils % (auto) 0.8 % (0.0-2.0); Eosinophils # (auto) 0.2 uL; Eosinophils % (auto) 3.8 % (0.0-7.0); Hematocrit 26.6 % (36.0-46.0); Hemoglobin 8.6 g/dL (12.2-16.2); Lymphocytes # (auto) 1.1 uL; Lymphocytes % (auto) 22.2 % (10.0-50.0); Mean Corpuscular Hemoglobin 29.7 pg (28.0-32.0); Mean Corpuscular Hgb Conc. 32.4 g/dL (32.0-36.0); Mean Corpuscular Volume 91.5 fL (80.0-100.0); Monocytes # (auto) 0.4 uL; Monocytes % (auto) 8.5 % (0.0-12.0); Neutrophils # (auto) 3.2 uL; Neutrophils % (auto) 64.7 % (37.0-80.0); Platelet Count (auto) 280 10^3/uL (140-450); Red Blood Cells 2.91 10^6/uL (4.0-5.20); Red Cell Distribution Width 16.9 % (11.8-14.3)
[2018-05-19 12:40] LABS: Calcium 8.8 mg/dL (8.5-10.1); Potassium 5.5 mmol/L (3.5-5.1)
== END | disposition home or self-care (01) ==
LOC: CHF HDHVI 10:15
PROVIDERS: ATTEND Internal Medicine Cardiovascular Disease
DX: I11.0 Hypertensive heart disease with heart failure (principal); I50.9 Heart failure, unspecified; D64.9 Anemia, unspecified
CPT/HCPCS: 36415; 80048; 83880; 85025

== ENCOUNTER → 2018-05-28 | Outpatient (CLI) | payer MEDICARE, MEDICAID ==
[~2018-05-28] MED LIST changes: +CYANOCOBALAMIN (B-12) 1000 MCG/1 ML VIAL IM ONE; +CYANOCOBALAMIN (B-12) 1000 MCG/1 ML VIAL ONE
[2018-05-28 11:03] VITALS: BP 136/79
[2018-05-28 11:20] VITALS: BP 156/68
[2018-05-28 12:15] LABS: Basophils # (auto) 0 uL; Eosinophils # (auto) 0.2 uL; Hematocrit 25.7 % (36.0-46.0); Hemoglobin 8.4 g/dL (12.2-16.2); Mean Corpuscular Hemoglobin 30.2 pg (28.0-32.0); Mean Corpuscular Hgb Conc. 32.8 g/dL (32.0-36.0); Monocytes # (auto) 0.4 uL; Monocytes % (auto) 7.3 % (0.0-12.0); Red Blood Cells 2.79 10^6/uL (4.0-5.20)
[2018-05-28 12:17] LABS: BUN/Creatinine Ratio 27.2; Basophils % (auto) 0.8 % (0.0-2.0); Calcium 8.7 mg/dL (8.5-10.1); Eosinophils % (auto) 3.2 % (0.0-7.0); Lymphocytes % (auto) 18.1 % (10.0-50.0); Magnesium 2.3 mg/dL (1.6-2.6); Neutrophils # (auto) 3.7 uL; Neutrophils % (auto) 70.6 % (37.0-80.0); Platelet Count (auto) 310 10^3/uL (140-450); Potassium 4.8 mmol/L (3.5-5.1); Red Cell Distribution Width 16.3 % (11.8-14.3); White Blood Cell 5.3 10^3/uL (4.4-10.8)
== END | disposition home or self-care (01) ==
LOC: CHF HDHVI 10:22
PROVIDERS: ATTEND Internal Medicine Cardiovascular Disease
DX: D64.9 Anemia, unspecified (principal); I11.0 Hypertensive heart disease with heart failure; I50.9 Heart failure, unspecified; E11.9 Type 2 diabetes mellitus without complications; I27.21 Secondary pulmonary arterial hypertension; E83.40 Disorders of magnesium metabolism, unspecified
CPT/HCPCS: 36415; 80048; 83036; 83735; 85025; 93701; G0463; J3420

== ENCOUNTER → 2018-06-23 | Outpatient (CLI) | payer MEDICARE, MEDICAID ==
[2018-06-23 09:17] VITALS: BP 138/63
--- NOTE | 2018-06-23 09:17 | NUR ---
CHF PT TO CHF CLINIC FOR MD PEREIRA ORDERED LABS,CARDIODYNAMICS, 6MW AND VIT B 12 INJECTION , SCHEDULED ECHO TODAY.
[2018-06-23 10:10] VITALS: BP 151/58
--- NOTE | 2018-06-23 10:10 | NUR ---
CHF Discharge Instructions See e-MAR for any mediations given with this visit. VIT B 12 1000MCG IM L DELTOID. Patient education given on disease process. Patient verbalized understanding. Previous labs reviewed. Patient discharged in stable condition with after care instructions and follow up appointment.
[2018-06-23 12:08] LABS: Basophils # (auto) 0.1 uL; Basophils % (auto) 0.9 % (0.0-2.0); Eosinophils # (auto) 0.1 uL; Eosinophils % (auto) 2.1 % (0.0-7.0); Hematocrit 28.6 % (36.0-46.0); Hemoglobin 8.9 g/dL (12.2-16.2); Lymphocytes # (auto) 0.9 uL; Lymphocytes % (auto) 16.2 % (10.0-50.0); Mean Corpuscular Volume 100.1 fL (80.0-100.0); Monocytes # (auto) 0.4 uL; Neutrophils # (auto) 4.1 uL; Neutrophils % (auto) 73.8 % (37.0-80.0); Nucleated Red Blood Cells % 0.1 %; Platelet Count (auto) 301 10^3/uL (140-450); Red Blood Cells 2.86 10^6/uL (4.0-5.20); White Blood Cell 5.6 10^3/uL (4.4-10.8)
[2018-06-23 12:32] LABS: BUN/Creatinine Ratio 29.5; Calcium 8.9 mg/dL (8.5-10.1); Magnesium 2.6 mg/dL (1.6-2.6); Potassium 4.9 mmol/L (3.5-5.1)
== END | disposition home or self-care (01) ==
LOC: Rad HDHVI 09:20
PROVIDERS: ATTEND Internal Medicine Cardiovascular Disease
DX: D51.9 Vitamin B12 deficiency anemia, unspecified (principal); I27.21 Secondary pulmonary arterial hypertension; I25.10 Atherosclerotic heart disease of native coronary artery without angina pectoris; I11.0 Hypertensive heart disease with heart failure; I50.42 Chronic combined systolic (congestive) and diastolic (congestive) heart failure; E11.9 Type 2 diabetes mellitus without complications; J44.9 Chronic obstructive pulmonary disease, unspecified; E83.40 Disorders of magnesium metabolism, unspecified; I42.9 Cardiomyopathy, unspecified; I73.9 Peripheral vascular disease, unspecified; I48.0 Paroxysmal atrial fibrillation; E78.5 Hyperlipidemia, unspecified; E03.9 Hypothyroidism, unspecified; I25.2 Old myocardial infarction; Z79.899 Other long term (current) drug therapy
CPT/HCPCS: 36415; 80048; 83735; 85025; 93306; 93701; 94618; 96372; G0463; J3420

== ENCOUNTER → 2018-07-07 | Outpatient (CLI) | payer MEDICARE, MEDICAID ==
[~2018-07-07] MED LIST changes: -CYANOCOBALAMIN (B-12) 1000 MCG/1 ML VIAL IM ONE; -CYANOCOBALAMIN (B-12) 1000 MCG/1 ML VIAL ONE
--- NOTE | 2018-07-07 08:59 | NUR ---
CHF PT TO CHF CLINIC FOR MD PEREIRA ORDERED LAB DRAW AND MEDICATION MANAGEMENT AND PAH/ REEVAL
[2018-07-07 09:36] VITALS: BP 140/56
--- NOTE | 2018-07-07 09:36 | NUR ---
CHF Discharge Instructions See e-MAR for any mediations given with this visit. Patient education given on disease process. Patient verbalized understanding. PT STATED NO CHANGE IN MEDICATION AT THIS TIME. ADEMPAS 1MG TID, F/U DR. PEREIRA 09/16/18 AND CHF CLINIC 07/21/18 FOR CARDIODYNAMICS, VIT B 12 INJECTION AND LAB RESULT REVIEW. Previous labs reviewed. Patient discharged in stable condition with after care instructions and follow up appointment.
[2018-07-07 09:57] VITALS: BP 140/51
[2018-07-07 12:20] LABS: Basophils # (auto) 0 uL; Basophils % (auto) 0.5 % (0.0-2.0); Eosinophils # (auto) 0.2 uL; Eosinophils % (auto) 2.9 % (0.0-7.0); Hemoglobin 8.5 g/dL (12.2-16.2); Lymphocytes # (auto) 1.1 uL; Lymphocytes % (auto) 20.5 % (10.0-50.0); Mean Corpuscular Hemoglobin 31.6 pg (28.0-32.0); Mean Corpuscular Hgb Conc. 33.9 g/dL (32.0-36.0); Mean Corpuscular Volume 93.3 fL (80.0-100.0); Monocytes # (auto) 0.3 uL; Monocytes % (auto) 5.9 % (0.0-12.0); Neutrophils # (auto) 3.9 uL; Neutrophils % (auto) 70.2 % (37.0-80.0); Platelet Count (auto) 316 10^3/uL (140-450); Red Blood Cells 2.68 10^6/uL (4.0-5.20); Red Cell Distribution Width 14.1 % (11.8-14.3); White Blood Cell 5.5 10^3/uL (4.4-10.8)
[2018-07-07 12:32] LABS: Potassium 4.6 mmol/L (3.5-5.1)
== END | disposition home or self-care (01) ==
LOC: CHF HDHVI 09:24
PROVIDERS: ATTEND Internal Medicine Cardiovascular Disease
DX: E87.6 Hypokalemia (principal); I11.0 Hypertensive heart disease with heart failure; I50.9 Heart failure, unspecified; R94.4 Abnormal results of kidney function studies; D64.9 Anemia, unspecified; I27.21 Secondary pulmonary arterial hypertension
CPT/HCPCS: 36415; 82565; 84132; 84520; 85025; G0463

== ENCOUNTER → 2018-07-21 | Outpatient (CLI) | payer MEDICARE, MEDICAID ==
[~2018-07-21] MED LIST changes: +CYANOCOBALAMIN (B-12) 1000 MCG/1 ML VIAL IM ONE; +CYANOCOBALAMIN (B-12) 1000 MCG/1 ML VIAL ONE
--- NOTE | 2018-07-21 08:15 | NUR ---
CHF PT TO CHF CLINIC FOR MONTH FOLLOW UP VSS AND CARDIODYNAMICS ALERT ORIENTED 0 DISTRESS
--- NOTE | 2018-07-21 08:20 | NUR ---
CHF Discharge Instructions See e-MAR for any mediations given with this visit. Patient education given on disease process. Patient verbalized understanding. Previous labs reviewed. Patient discharged in stable condition with after care instructions and follow up appointment.
[2018-07-21 09:15] VITALS: BP 124/55
[2018-07-21 09:25] VITALS: BP 126/63
[2018-07-21 12:57] LABS: Basophils # (auto) 0 uL; Basophils % (auto) 0.6 % (0.0-2.0); Eosinophils # (auto) 0.1 uL; Eosinophils % (auto) 2.8 % (0.0-7.0); Hematocrit 22.7 % (36.0-46.0); Hemoglobin 7.4 g/dL (12.2-16.2); Lymphocytes % (auto) 19.1 % (10.0-50.0); Mean Corpuscular Hemoglobin 30.6 pg (28.0-32.0); Mean Corpuscular Hgb Conc. 32.5 g/dL (32.0-36.0); Mean Corpuscular Volume 94.3 fL (80.0-100.0); Monocytes # (auto) 0.4 uL; Monocytes % (auto) 8.4 % (0.0-12.0); Neutrophils # (auto) 3.6 uL; Neutrophils % (auto) 69.1 % (37.0-80.0); Nucleated Red Blood Cells % 0.1 %; Platelet Count (auto) 335 10^3/uL (140-450); Red Blood Cells 2.41 10^6/uL (4.0-5.20); Red Cell Distribution Width 14.3 % (11.8-14.3); White Blood Cell 5.2 10^3/uL (4.4-10.8)
[2018-07-21 13:09] LABS: BUN/Creatinine Ratio 25.1; Calcium 8.2 mg/dL (8.5-10.1); Magnesium 2.3 mg/dL (1.6-2.6); Potassium 4.8 mmol/L (3.5-5.1)
== END | disposition home or self-care (01) ==
LOC: CHF HDHVI 08:18
PROVIDERS: ATTEND Internal Medicine Cardiovascular Disease
DX: I27.21 Secondary pulmonary arterial hypertension (principal); D64.9 Anemia, unspecified; E83.40 Disorders of magnesium metabolism, unspecified; I11.0 Hypertensive heart disease with heart failure; I50.42 Chronic combined systolic (congestive) and diastolic (congestive) heart failure; I25.10 Atherosclerotic heart disease of native coronary artery without angina pectoris; I42.9 Cardiomyopathy, unspecified; J44.9 Chronic obstructive pulmonary disease, unspecified; E78.5 Hyperlipidemia, unspecified; E03.9 Hypothyroidism, unspecified; I25.2 Old myocardial infarction; I48.0 Paroxysmal atrial fibrillation; E11.51 Type 2 diabetes mellitus with diabetic peripheral angiopathy without gangrene; Z79.899 Other long term (current) drug therapy; Z95.0 Presence of cardiac pacemaker
CPT/HCPCS: 36415; 80048; 83735; 85025; 93701; 96372; G0463; J3420

== ENCOUNTER → 2018-07-24 | Outpatient (CLI) | payer MEDICARE, MEDICAID ==
[~2018-07-24] MED LIST changes: -CYANOCOBALAMIN (B-12) 1000 MCG/1 ML VIAL IM ONE; -CYANOCOBALAMIN (B-12) 1000 MCG/1 ML VIAL ONE
== END | disposition home or self-care (01) ==
LOC: LAB 10:02
PROVIDERS: ATTEND Internal Medicine Cardiovascular Disease
DX: D64.9 Anemia, unspecified (principal)
CPT/HCPCS: 36415; 85018

== ENCOUNTER → 2018-07-28 | Outpatient (CLI) | payer MEDICARE, MEDICAID ==
[2018-07-28 11:52] LABS: Basophils # (auto) 0 uL; Eosinophils # (auto) 0.1 uL; Lymphocytes # (auto) 0.9 uL
[2018-07-28 11:54] LABS: Basophils % (auto) 0.5 % (0.0-2.0); Eosinophils % (auto) 2.3 % (0.0-7.0); Hematocrit 24.4 % (36.0-46.0); Hemoglobin 7.9 g/dL (12.2-16.2); Lymphocytes % (auto) 19.8 % (10.0-50.0); Mean Corpuscular Hemoglobin 30.7 pg (28.0-32.0); Mean Corpuscular Hgb Conc. 32.4 g/dL (32.0-36.0); Mean Corpuscular Volume 94.8 fL (80.0-100.0); Monocytes # (auto) 0.4 uL; Neutrophils # (auto) 3.2 uL; Neutrophils % (auto) 68.4 % (37.0-80.0); Nucleated Red Blood Cells % 0.1 %; Platelet Count (auto) 347 10^3/uL (140-450); Red Blood Cells 2.58 10^6/uL (4.0-5.20); Red Cell Distribution Width 14.3 % (11.8-14.3); White Blood Cell 4.7 10^3/uL (4.4-10.8)
[2018-07-28 12:06] LABS: BUN/Creatinine Ratio 25.8; Calcium 8.7 mg/dL (8.5-10.1); Potassium 5.1 mmol/L (3.5-5.1)
== END | disposition home or self-care (01) ==
LOC: CHF HDHVI 10:24
PROVIDERS: ATTEND Internal Medicine Cardiovascular Disease
DX: I10 Essential (primary) hypertension (principal); D64.9 Anemia, unspecified; E78.5 Hyperlipidemia, unspecified; I25.10 Atherosclerotic heart disease of native coronary artery without angina pectoris; E11.9 Type 2 diabetes mellitus without complications
CPT/HCPCS: 36415; 80048; 85025

== ENCOUNTER → 2018-08-11 | Outpatient (CLI) | payer MEDICARE, MEDICAID ==
[2018-08-11 12:17] VITALS: BP 152/79
--- NOTE | 2018-08-11 12:17 | NUR ---
CHF PT ARRIVED AT CHF CLINIC , 2 WEEK FOLLOW UP. 0 DISTRESS, 0 PAIN. LABS DRAWN
[2018-08-11 13:38] VITALS: BP 158/77
--- NOTE | 2018-08-11 13:38 | NUR ---
Discharge Instructions See e-MAR for any mediations given with this visit. Patient education given on disease process. Patient verbalized understanding. Previous labs reviewed. Patient discharged in stable condition with after care instructions and follow up appointment.
[2018-08-11 16:07] LABS: BUN/Creatinine Ratio 25.9; Calcium 8.7 mg/dL (8.5-10.1); Potassium 5.5 mmol/L (3.5-5.1)
[2018-08-11 16:16] LABS: Basophils # (auto) 0 uL; Eosinophils # (auto) 0.1 uL; Hematocrit 22.4 % (36.0-46.0); Hemoglobin 7.4 g/dL (12.2-16.2); Lymphocytes # (auto) 0.8 uL; Monocytes # (auto) 0.5 uL; Neutrophils # (auto) 3.3 uL; Nucleated Red Blood Cells % 0.1 %; White Blood Cell 4.7 10^3/uL (4.4-10.8)
[2018-08-11 16:20] LABS: Basophils % (auto) 0.5 % (0.0-2.0); Eosinophils % (auto) 2.1 % (0.0-7.0); Lymphocytes % (auto) 17.1 % (10.0-50.0); Mean Corpuscular Hemoglobin 31.1 pg (28.0-32.0); Mean Corpuscular Hgb Conc. 33.1 g/dL (32.0-36.0); Mean Corpuscular Volume 93.9 fL (80.0-100.0); Monocytes % (auto) 9.8 % (0.0-12.0); Neutrophils % (auto) 70.5 % (37.0-80.0); Platelet Count (auto) 318 10^3/uL (140-450); Red Blood Cells 2.38 10^6/uL (4.0-5.20); Red Cell Distribution Width 13.7 % (11.8-14.3)
== END | disposition home or self-care (01) ==
LOC: CHF HDHVI 12:19
PROVIDERS: ATTEND Internal Medicine Cardiovascular Disease
DX: I11.0 Hypertensive heart disease with heart failure (principal); I50.23 Acute on chronic systolic (congestive) heart failure; D64.9 Anemia, unspecified; I27.21 Secondary pulmonary arterial hypertension
CPT/HCPCS: 36415; 80048; 83880; 85025; 93701; G0463

== ENCOUNTER 2018-08-19 07:23 | Day surgery (SDC) | payer MEDICARE, MEDICAID ==
--- NOTE | 2018-08-19 09:00 | NUR ---
ASSUMED CARE OF PT. PT AWAKE, A/O, NO C/O PAIN OR DISCOMFORT. RECEIVING PRBC TRANSFUSION. NO REACTION NOTED. VSS. WILL CONT TO MONITOR.
--- NOTE | 2018-08-19 10:27 | NUR ---
BLOOD TRANSFUSION PRBC TRANSFUSION COMPLETE. NO S/S OF REACTION NOTED. VSS.
--- NOTE | 2018-08-19 10:40 | NUR ---
PRBC TRANSFUSION SECOND PRBC TRANSFUSION UNIT STARTED. NO S/S OF REACTION NOTED. VSS.
--- NOTE | 2018-08-19 12:45 | NUR ---
D/C INSTRUCTIONS D/C INSTRUCTIONS GIVEN TO PT WITH VERBALIZED UNDERSTANDING.
--- NOTE | 2018-08-19 13:35 | NUR ---
DISCHARGE BLOOD TRANSFUSION COMPLETE. PT TOLERATED WELL. VSS THROUGHOUT TRANSFUSION. NO S/S OF REACTION NOTED. IV DC'D WITH CATH TIP INTACT. FAMILY AT BEDSIDE. PT AMBULATED OUT TO PRIVATE VEHICLE WITH ALL BELONGINGS WITHOUT INCIDENT.
== END 2018-08-19 13:35 | disposition home or self-care (01) ==
LOC: CATH 07:23
PROVIDERS: ATTEND Internal Medicine Cardiovascular Disease
DX: Z51.89 Encounter for other specified aftercare (principal); Z98.890 Other specified postprocedural states
CPT/HCPCS: 36430; 86850; 86900; 86901; 86920; J7040; P9016

== ENCOUNTER → 2018-09-01 | Outpatient (CLI) | payer MEDICARE, MEDICAID ==
[~2018-09-01] MED LIST changes: +CYANOCOBALAMIN (B-12) 1000 MCG/1 ML VIAL IM ONE; +CYANOCOBALAMIN (B-12) 1000 MCG/1 ML VIAL ONE
[2018-09-01 11:34] VITALS: BP 150/65
--- NOTE | 2018-09-01 11:34 | NUR ---
CHF CLINIC Discharge Instructions See e-MAR for any mediations given with this visit. Patient education given on disease process. Patient verbalized understanding. Previous labs reviewed. Patient discharged in stable condition with after care instructions and follow up appointment ON 09/16/18. NOTE B12 IM L DELTOID ADMIN BY ROYCE GRAF. CARDIODYNAMICS PERFORMED BY ROYCE GRAF AND RESULTS REVIEWED WITH PATIENT BY MAREK LI 6MWT PERFORMED BY ROYCE GRAF, RESULTS UNCHANGED FROM 3 MONTHS AGO.
[2018-09-01 12:28] LABS: Basophils # (auto) 0 uL; Basophils % (auto) 0.4 % (0.0-2.0); Eosinophils # (auto) 0.1 uL; Eosinophils % (auto) 1.9 % (0.0-7.0); Hematocrit 31.8 % (36.0-46.0); Hemoglobin 10.3 g/dL (12.2-16.2); Lymphocytes # (auto) 0.6 uL; Lymphocytes % (auto) 14.1 % (10.0-50.0); Mean Corpuscular Hemoglobin 29.1 pg (28.0-32.0); Mean Corpuscular Hgb Conc. 32.3 g/dL (32.0-36.0); Mean Corpuscular Volume 90.1 fL (80.0-100.0); Monocytes # (auto) 0.4 uL; Monocytes % (auto) 9.6 % (0.0-12.0); Neutrophils # (auto) 3.2 uL; Platelet Count (auto) 408 10^3/uL (140-450); Red Blood Cells 3.54 10^6/uL (4.0-5.20); Red Cell Distribution Width 15.4 % (11.8-14.3); White Blood Cell 4.3 10^3/uL (4.4-10.8)
[2018-09-01 13:02] LABS: Potassium 4.8 mmol/L (3.5-5.1)
[2018-09-01 13:06] LABS: BUN/Creatinine Ratio 23.8; Calcium 8.6 mg/dL (8.5-10.1); Magnesium 2.5 mg/dL (1.6-2.6)
[2018-09-01 13:09] LABS: Bilirubin, Total 0.4 mg/dL (0.2-1.0); Total Protein 6.9 g/dL (6.4-8.2)
== END | disposition home or self-care (01) ==
LOC: CHF HDHVI 10:22
PROVIDERS: ATTEND Internal Medicine Cardiovascular Disease
DX: D51.9 Vitamin B12 deficiency anemia, unspecified (principal); E83.40 Disorders of magnesium metabolism, unspecified; D64.9 Anemia, unspecified; E03.9 Hypothyroidism, unspecified; I27.21 Secondary pulmonary arterial hypertension; I11.0 Hypertensive heart disease with heart failure; I50.42 Chronic combined systolic (congestive) and diastolic (congestive) heart failure; I25.10 Atherosclerotic heart disease of native coronary artery without angina pectoris; E78.5 Hyperlipidemia, unspecified; I25.2 Old myocardial infarction; I48.0 Paroxysmal atrial fibrillation; E11.51 Type 2 diabetes mellitus with diabetic peripheral angiopathy without gangrene; Z98.890 Other specified postprocedural states; Z79.899 Other long term (current) drug therapy; Z95.0 Presence of cardiac pacemaker
CPT/HCPCS: 36415; 80053; 82306; 82607; 83735; 83880; 85025; 93701; 94618; 96372; G0463; J3420

== ENCOUNTER → 2018-09-29 | Outpatient (CLI) | payer MEDICARE, MEDICAID ==
[~2018-09-29] MED LIST changes: -CYANOCOBALAMIN (B-12) 1000 MCG/1 ML VIAL IM ONE
[2018-09-29 11:15] VITALS: BP 174/78
--- NOTE | 2018-09-29 11:15 | NUR ---
CHF PT ARRIVED TO CHF CLINIC FOR PAH CHF FOLLOW UP. VITAL SIGNS OBTAINED PT A/O X 3 O DISTRESS
[2018-09-29 12:43] VITALS: BP 179/69
--- NOTE | 2018-09-29 12:43 | NUR ---
Discharge Instructions See e-MAR for any mediations given with this visit. Patient education given on disease process. Patient verbalized understanding. Previous labs reviewed. Patient discharged in stable condition with after care instructions and follow up appointment. PT ON OPSUMIT 10MG DAILY AND ADEMPAS 1MG TID INCREASED TO 1.5 MG TID MEDICATIONS 1217 VITAMIN B12 1000MCG IM X 1 LEFT DELTOID/ LOT # [id number] EXP 04/21
== END | disposition home or self-care (01) ==
LOC: CHF HDHVI 11:25
PROVIDERS: ATTEND Internal Medicine Cardiovascular Disease
DX: I11.0 Hypertensive heart disease with heart failure (principal); I50.22 Chronic systolic (congestive) heart failure; I27.21 Secondary pulmonary arterial hypertension; I25.10 Atherosclerotic heart disease of native coronary artery without angina pectoris; E78.5 Hyperlipidemia, unspecified; E03.9 Hypothyroidism, unspecified; I25.2 Old myocardial infarction; E11.51 Type 2 diabetes mellitus with diabetic peripheral angiopathy without gangrene; Z79.899 Other long term (current) drug therapy; Z95.0 Presence of cardiac pacemaker
CPT/HCPCS: 93701; 96372; G0463; J3420

== ENCOUNTER → 2018-10-08 | Outpatient (CLI) | payer MEDICARE, MEDICAID ==
[~2018-10-08] MED LIST changes: +CYANOCOBALAMIN (B-12) 1000 MCG/1 ML VIAL IM ONE
--- NOTE | 2018-10-08 11:20 | NUR ---
PT. TO PAH CLINIC FOR EVAL AND TX ON MED REC CHANGES FOR PAH. PT. FEELING BETTER AND STABLE FOR INCREASE IN ADEMPAS PER MD ORDER. CARDIODYNAMICS REVIEWED . LABS ORDERED, WITH ADDITIONAL MED ORDERS. SEE NSG ASSESS.
[2018-10-08 11:40] VITALS: BP 144/59
--- NOTE | 2018-10-08 12:00 | NUR ---
LABS DRAWN AND SENT PER MD ORDER.
--- NOTE | 2018-10-08 12:51 | NUR ---
MEDS: PT. MEDICATED WITH VIT. B12 1000MCG IM LEFT DELT. PER MD ORDER.
--- NOTE | 2018-10-08 13:00 | NUR ---
[facility]. CALLED WITH NEW ORDERS FOR ADEMPAS 1.5MG TID PER DR. PEREIRA.
[2018-10-08 13:05] VITALS: BP 151/72
[2018-10-08 16:41] LABS: Basophils # (auto) 0 uL; Basophils % (auto) 0.8 % (0.0-2.0); Eosinophils # (auto) 0.1 uL; Eosinophils % (auto) 2.6 % (0.0-7.0); Hematocrit 30.7 % (36.0-46.0); Lymphocytes # (auto) 0.8 uL; Lymphocytes % (auto) 16.5 % (10.0-50.0); Mean Corpuscular Hemoglobin 29.5 pg (28.0-32.0); Mean Corpuscular Hgb Conc. 32.6 g/dL (32.0-36.0); Mean Corpuscular Volume 90.4 fL (80.0-100.0); Monocytes # (auto) 0.5 uL; Monocytes % (auto) 9.8 % (0.0-12.0); Neutrophils # (auto) 3.5 uL; Neutrophils % (auto) 70.3 % (37.0-80.0); Platelet Count (auto) 304 10^3/uL (140-450); Red Cell Distribution Width 15.5 % (11.8-14.3)
[2018-10-08 17:08] LABS: BUN/Creatinine Ratio 23.9; Calcium 8.7 mg/dL (8.5-10.1)
== END | disposition home or self-care (01) ==
LOC: CHF HDHVI 11:18
PROVIDERS: ATTEND Internal Medicine Cardiovascular Disease
DX: I11.0 Hypertensive heart disease with heart failure (principal); I27.21 Secondary pulmonary arterial hypertension; I25.10 Atherosclerotic heart disease of native coronary artery without angina pectoris; I50.42 Chronic combined systolic (congestive) and diastolic (congestive) heart failure; D64.9 Anemia, unspecified; E78.5 Hyperlipidemia, unspecified; E03.9 Hypothyroidism, unspecified; I25.2 Old myocardial infarction; E11.51 Type 2 diabetes mellitus with diabetic peripheral angiopathy without gangrene; Z79.899 Other long term (current) drug therapy; Z95.0 Presence of cardiac pacemaker
CPT/HCPCS: 36415; 80048; 83880; 85025; 96372; G0463; J3420

== ENCOUNTER → 2018-10-09 | Outpatient (CLI) | payer MEDICARE, MEDICAID ==
[~2018-10-09] MED LIST changes: -CYANOCOBALAMIN (B-12) 1000 MCG/1 ML VIAL IM ONE; -CYANOCOBALAMIN (B-12) 1000 MCG/1 ML VIAL ONE
== END | disposition home or self-care (01) ==
LOC: LAB 12:10
PROVIDERS: ATTEND Internal Medicine Cardiovascular Disease
DX: E87.5 Hyperkalemia (principal)
CPT/HCPCS: 36415; 84132

== ENCOUNTER → 2018-10-27 | Outpatient (CLI) | payer MEDICARE, MEDICAID ==
[~2018-10-27] MED LIST changes: +CYANOCOBALAMIN (B-12) 1000 MCG/1 ML VIAL IM ONE; +FUROSEMIDE 40 MG/4 ML VIAL IV ONE; +POTASSIUM CHL 10 Meq TABLET PO ONE
[2018-10-27 11:30] VITALS: BP 163/64
--- NOTE | 2018-10-27 11:30 | NUR ---
CHF PT ALERT ORIENTED X 3, PRESENTED TO CLINIC FOR FOLLOW UP. CARDIODYNAMICS, LABS
[2018-10-27 13:10] VITALS: BP 134/56
--- NOTE | 2018-10-27 13:10 | NUR ---
Discharge Instructions See e-MAR for any mediations given with this visit. Patient education given on disease process. Patient verbalized understanding. Previous labs reviewed. Patient discharged in stable condition with after care instructions and follow up appointment. Addendum: 10/27/18 at 1459 by AZAR LYNCH RN RN TN ADEMPAS 1.5 MG STARTED TODAY, FIRST DOSE TODAY AND OPSUMIT 10MG Q DAY
[2018-10-27 16:11] LABS: BUN/Creatinine Ratio 30.6; Calcium 8.7 mg/dL (8.5-10.1); Magnesium 2.9 mg/dL (1.6-2.6); Potassium 5.1 mmol/L (3.5-5.1)
[2018-10-27 16:23] LABS: Basophils # (auto) 0 uL; Basophils % (auto) 0.7 % (0.0-2.0); Eosinophils # (auto) 0.2 uL; Eosinophils % (auto) 3.1 % (0.0-7.0); Hematocrit 32.9 % (36.0-46.0); Hemoglobin 10.4 g/dL (12.2-16.2); Lymphocytes # (auto) 0.8 uL; Lymphocytes % (auto) 16.1 % (10.0-50.0); Mean Corpuscular Hemoglobin 28.8 pg (28.0-32.0); Mean Corpuscular Hgb Conc. 31.6 g/dL (32.0-36.0); Mean Corpuscular Volume 91.2 fL (80.0-100.0); Monocytes # (auto) 0.5 uL; Monocytes % (auto) 8.8 % (0.0-12.0); Neutrophils # (auto) 3.6 uL; Neutrophils % (auto) 71.3 % (37.0-80.0); Nucleated Red Blood Cells % 0.3 %; Platelet Count (auto) 333 10^3/uL (140-450); Red Cell Distribution Width 16.2 % (11.8-14.3); White Blood Cell 5.1 10^3/uL (4.4-10.8)
== END | disposition home or self-care (01) ==
LOC: CHF HDHVI 11:15
PROVIDERS: ATTEND Internal Medicine Cardiovascular Disease
DX: I11.0 Hypertensive heart disease with heart failure (principal); I50.23 Acute on chronic systolic (congestive) heart failure; D64.9 Anemia, unspecified; E83.40 Disorders of magnesium metabolism, unspecified; I27.21 Secondary pulmonary arterial hypertension; I31.3 Pericardial effusion (noninflammatory); E87.70 Fluid overload, unspecified
CPT/HCPCS: 36415; 80048; 83735; 83880; 85025; 93701; G0463

== ENCOUNTER → 2018-11-10 | Outpatient (CLI) | payer MEDICARE, MEDICAID ==
[~2018-11-10] MED LIST changes: -FUROSEMIDE 40 MG/4 ML VIAL IV ONE; -POTASSIUM CHL 10 Meq TABLET PO ONE
[2018-11-10 11:00] VITALS: BP 155/61
[2018-11-10] MEDS: CYANOCOBALAMIN (B-12) 1000 MCG/1 ML VIAL ONE (12:11)
[2018-11-10 12:20] VITALS: BP 166/74
--- NOTE | 2018-11-10 12:20 | NUR ---
CHF Clinic Discharge Instructions See e-MAR for any mediations given with this visit. Patient education given on disease process. Patient verbalized understanding. Previous labs reviewed. Patient discharged in stable condition with after care instructions and follow up appointment in 2 weeks. Note B12 IM L deltoid admin by Yolanda GRAF Cardiodynamics performed by Yolanda GRAF and reviewed by Gladys LI Labs drawn by Gladys LI.
[2018-11-10 15:59] LABS: Albumin 3.1 g/dL (3.4-5.0); BUN/Creatinine Ratio 22.9; Calcium 8.5 mg/dL (8.5-10.1); Magnesium 2.5 mg/dL (1.6-2.6)
[2018-11-10 16:01] LABS: Bilirubin, Total 0.2 mg/dL (0.2-1.0); Total Protein 7.1 g/dL (6.4-8.2)
[2018-11-10 16:12] LABS: Basophils # (auto) 0 uL; Basophils % (auto) 0.7 % (0.0-2.0); Eosinophils # (auto) 0.2 uL; Eosinophils % (auto) 3.1 % (0.0-7.0); Hemoglobin 9.4 g/dL (12.2-16.2); Lymphocytes # (auto) 0.8 uL; Lymphocytes % (auto) 13.9 % (10.0-50.0); Mean Corpuscular Hemoglobin 29.8 pg (28.0-32.0); Mean Corpuscular Hgb Conc. 32.5 g/dL (32.0-36.0); Mean Corpuscular Volume 91.6 fL (80.0-100.0); Monocytes # (auto) 0.5 uL; Neutrophils # (auto) 4.3 uL; Neutrophils % (auto) 73.3 % (37.0-80.0); Nucleated Red Blood Cells % 0.1 %; Platelet Count (auto) 289 10^3/uL (140-450); Red Blood Cells 3.16 10^6/uL (4.0-5.20); Red Cell Distribution Width 16.3 % (11.8-14.3); White Blood Cell 5.8 10^3/uL (4.4-10.8)
== END | disposition home or self-care (01) ==
LOC: CHF HDHVI 10:21
PROVIDERS: ATTEND Internal Medicine Cardiovascular Disease
DX: I25.10 Atherosclerotic heart disease of native coronary artery without angina pectoris (principal); I50.23 Acute on chronic systolic (congestive) heart failure; D64.9 Anemia, unspecified; E83.40 Disorders of magnesium metabolism, unspecified; I27.21 Secondary pulmonary arterial hypertension; I11.0 Hypertensive heart disease with heart failure; I50.32 Chronic diastolic (congestive) heart failure; I25.2 Old myocardial infarction; E78.5 Hyperlipidemia, unspecified; E03.9 Hypothyroidism, unspecified; E11.51 Type 2 diabetes mellitus with diabetic peripheral angiopathy without gangrene; Z95.0 Presence of cardiac pacemaker
CPT/HCPCS: 36415; 80053; 83735; 83880; 85025; 93701; 96372; G0463

== ENCOUNTER → 2018-11-26 | Outpatient (CLI) | payer MEDICARE, MEDICAID ==
[~2018-11-26] MED LIST changes: -CYANOCOBALAMIN (B-12) 1000 MCG/1 ML VIAL IM ONE; +SODIUM CHLORIDE 0.9% 250 ML IV ONE
--- NOTE | 2018-11-26 11:45 | NUR ---
CHF PT ARRIVED TO THE CHF CLINIC FOR FOLLOW UP. PAH F/U. PT ALERT ORIENTED X 3 , VSS
--- NOTE | 2018-11-26 11:50 | NUR ---
Clinic Provider Clinic Provider UPDATED ON PT STATUS new orders received and carried out. SVR ELEVATED PT ORDER NS 250 IN FLUID
--- NOTE | 2018-11-26 13:00 | NUR ---
IV insertion IV access obtained, via clean sterile technique by inserting 22 gauge catheter at after attempt(s). IV secured properly. No trauma to site. Patient tolerated procedure well.
[2018-11-26 14:15] VITALS: BP 152/65
--- NOTE | 2018-11-26 15:00 | NUR ---
IV removal IV DC'd with sterile technique, catheter fully intact. Pressure dressing applied to site. Patient tolerated procedure well. Discharged with aftercare instructions per MD. NOTE:
--- NOTE | 2018-11-26 15:06 | NUR ---
Discharge Instructions See e-MAR for any mediations given with this visit. Patient education given on disease process. Patient verbalized understanding. Previous labs reviewed. Patient discharged in stable condition with after care instructions and follow up appointment. PT ADEMPAS INCREASED TO 2.0 MG PO TID, GIVEN ARGINETIX. ADVISED TO TAKE TWICE A DAY. EXPLAINED BY ROYCE GRAF IN [facility]. PT VERBALIZED UNDERSTANDING MEDICATIONS 1315 NS 250 ML IV OVER 1 HR 1415 NS STOP TIME
[2018-11-26 15:46] LABS: Basophils # (auto) 0 uL; Basophils % (auto) 0.6 % (0.0-2.0); Eosinophils # (auto) 0.2 uL; Eosinophils % (auto) 3.7 % (0.0-7.0); Hematocrit 29.3 % (36.0-46.0); Hemoglobin 9.5 g/dL (12.2-16.2); Lymphocytes # (auto) 0.9 uL; Lymphocytes % (auto) 15.8 % (10.0-50.0); Mean Corpuscular Hemoglobin 29.6 pg (28.0-32.0); Mean Corpuscular Hgb Conc. 32.5 g/dL (32.0-36.0); Mean Corpuscular Volume 90.9 fL (80.0-100.0); Monocytes # (auto) 0.6 uL; Monocytes % (auto) 9.6 % (0.0-12.0); Neutrophils # (auto) 4.1 uL; Neutrophils % (auto) 70.3 % (37.0-80.0); Platelet Count (auto) 298 10^3/uL (140-450); Red Blood Cells 3.22 10^6/uL (4.0-5.20); Red Cell Distribution Width 15.9 % (11.8-14.3); White Blood Cell 5.9 10^3/uL (4.4-10.8)
[2018-11-26 15:51] LABS: BUN/Creatinine Ratio 24.9; Calcium 8.9 mg/dL (8.5-10.1); Magnesium 2.7 mg/dL (1.6-2.6)
== END | disposition home or self-care (01) ==
LOC: CHF HDHVI 11:21
PROVIDERS: ATTEND Internal Medicine Cardiovascular Disease
DX: I11.0 Hypertensive heart disease with heart failure (principal); I50.42 Chronic combined systolic (congestive) and diastolic (congestive) heart failure; I25.10 Atherosclerotic heart disease of native coronary artery without angina pectoris; N28.9 Disorder of kidney and ureter, unspecified; D64.9 Anemia, unspecified; R53.83 Other fatigue; I25.2 Old myocardial infarction; I27.21 Secondary pulmonary arterial hypertension; E03.9 Hypothyroidism, unspecified; E78.5 Hyperlipidemia, unspecified; E11.51 Type 2 diabetes mellitus with diabetic peripheral angiopathy without gangrene; Z79.899 Other long term (current) drug therapy
CPT/HCPCS: 36415; 80048; 83735; 83880; 85025; 93701; 96360; G0463; J7050; 96365

== ENCOUNTER → 2018-12-15 | Outpatient (CLI) | payer MEDICARE, MEDICAID ==
[~2018-12-15] MED LIST changes: -SODIUM CHLORIDE 0.9% 250 ML IV ONE
[2018-12-15 11:11] VITALS: BP 149/58
--- NOTE | 2018-12-15 11:11 | NUR ---
CHF PT ARRIVED AT THE CHF CLINIC FOR MONTHLY F/U. VSS PT DID C/O FEELING FAINT THIS AM. STAT LABS DRAWN AND PACE MAKER CHECKED. UPDATED ORDERS RECEIVED AND NOTED
--- NOTE | 2018-12-15 12:08 | NUR ---
PACEMAKER PACEMAKER INTERROGATED NO RECENT ACTIVITY
--- NOTE | 2018-12-15 13:20 | NUR ---
LABS DRAWN BMP,BNP.TSH,CBC
[2018-12-15 13:30] VITALS: BP 155/71
--- NOTE | 2018-12-15 13:30 | NUR ---
Discharge Instructions See e-MAR for any mediations given with this visit. Patient education given on disease process. Patient verbalized understanding. Previous labs reviewed. Patient discharged in stable condition with after care instructions and follow up appointment. Addendum: 12/15/18 at 1432 by AZAR LYNHC RN RN DC PT IS ON ADEMPAS 2MG TID PO X 2 WEEKS AND OPSUMIT 10MG Q DAY. PT ADVISED TO RETURN TO THE CLINIC IN 2 WEEKS.
[2018-12-15 13:33] LABS: Basophils # (auto) 0 uL; Basophils % (auto) 0.5 % (0.0-2.0); Eosinophils # (auto) 0.1 uL; Eosinophils % (auto) 1.8 % (0.0-7.0); Hematocrit 26.6 % (36.0-46.0); Hemoglobin 8.8 g/dL (12.2-16.2); Lymphocytes # (auto) 0.6 uL; Lymphocytes % (auto) 12.3 % (10.0-50.0); Mean Corpuscular Hemoglobin 30.6 pg (28.0-32.0); Mean Corpuscular Hgb Conc. 33.2 g/dL (32.0-36.0); Monocytes # (auto) 0.4 uL; Monocytes % (auto) 7.2 % (0.0-12.0); Neutrophils # (auto) 3.9 uL; Neutrophils % (auto) 78.2 % (37.0-80.0); Platelet Count (auto) 282 10^3/uL (140-450); Red Blood Cells 2.89 10^6/uL (4.0-5.20); Red Cell Distribution Width 15.2 % (11.8-14.3)
[2018-12-15 15:24] LABS: BUN/Creatinine Ratio 32.5; Calcium 8.1 mg/dL (8.5-10.1); Potassium 4.9 mmol/L (3.5-5.1)
== END | disposition home or self-care (01) ==
LOC: CHF HDHVI 11:12
PROVIDERS: ATTEND Internal Medicine Cardiovascular Disease
DX: I11.0 Hypertensive heart disease with heart failure (principal); I50.23 Acute on chronic systolic (congestive) heart failure; D64.9 Anemia, unspecified; R42 Dizziness and giddiness; R00.2 Palpitations; I27.21 Secondary pulmonary arterial hypertension
CPT/HCPCS: 36415; 80048; 83880; 84443; 85025; 93005; 93701; 94618; G0463

== ENCOUNTER → 2018-12-29 | Outpatient (CLI) | payer MEDICARE, MEDICAID ==
[2018-12-29 11:20] VITALS: BP 146/64
[2018-12-29 12:35] VITALS: BP 135/68
--- NOTE | 2018-12-29 12:35 | NUR ---
IN TO CLINIC FOR PAH FOLLOWUP. LABS DRAWN AND SENT. PT HAS CHRONIC ANEMIA AND GIVEN IRON BOOST SPRAY WITH DIRECTION FOR 4 SPRAYS AT HS. PT REPORTS FEELING WELL. DENIES FATIGUE OR SOB. Discharge Instructions See e-MAR for any mediations given with this visit. Patient education given on disease process. Patient verbalized understanding. Previous labs reviewed. Patient discharged in stable condition with after care instructions and follow up appointment FOR CHF FOR 01/12/[address] PEREIRA ON 02/17/19.
[2018-12-29 16:04] LABS: Potassium 5.1 mmol/L (3.5-5.1)
[2018-12-29 16:15] LABS: Basophils # (auto) 0 uL; Basophils % (auto) 0.8 % (0.0-2.0); Eosinophils # (auto) 0.1 uL; Hematocrit 26.4 % (36.0-46.0); Hemoglobin 8.7 g/dL (12.2-16.2); Lymphocytes # (auto) 0.8 uL; Lymphocytes % (auto) 15.4 % (10.0-50.0); Mean Corpuscular Volume 93.9 fL (80.0-100.0); Monocytes # (auto) 0.4 uL; Neutrophils % (auto) 74.8 % (37.0-80.0); Platelet Count (auto) 278 10^3/uL (140-450); Red Blood Cells 2.81 10^6/uL (4.0-5.20); Red Cell Distribution Width 14.7 % (11.8-14.3); White Blood Cell 5.3 10^3/uL (4.4-10.8)
== END | disposition home or self-care (01) ==
LOC: CHF HDHVI 11:26
PROVIDERS: ATTEND Internal Medicine Cardiovascular Disease
DX: D64.9 Anemia, unspecified (principal); E87.6 Hypokalemia; R94.4 Abnormal results of kidney function studies; D51.9 Vitamin B12 deficiency anemia, unspecified; I11.0 Hypertensive heart disease with heart failure; I50.9 Heart failure, unspecified
CPT/HCPCS: 36415; 82306; 82565; 82607; 84132; 84520; 85025; G0463

== ENCOUNTER → 2019-01-12 | Outpatient (CLI) | payer MEDICARE, MEDICAID ==
[2019-01-12 10:43] VITALS: BP 142/61
[2019-01-12 12:01] VITALS: BP 153/64
--- NOTE | 2019-01-12 12:01 | NUR ---
CHF CLINIC Discharge Instructions See e-MAR for any mediations given with this visit. Patient education given on disease process. Patient verbalized understanding. Previous labs reviewed. Patient discharged in stable condition with after care instructions and follow up appointment. Note Cardiodynamics performed by Yolanda and reviewed by Gladys LI. Patient will return in 2 weeks for follow up.
== END | disposition home or self-care (01) ==
LOC: CHF HDHVI 10:23
PROVIDERS: ATTEND Internal Medicine Cardiovascular Disease
DX: I10 Essential (primary) hypertension (principal); D64.9 Anemia, unspecified; I27.21 Secondary pulmonary arterial hypertension
CPT/HCPCS: 93701; G0463

== ENCOUNTER → 2019-01-26 | Outpatient (CLI) | payer MEDICARE, MEDICAID ==
[~2019-01-26] MED LIST changes: +CYANOCOBALAMIN (B-12) 1000 MCG/1 ML VIAL IM ONE; +CYANOCOBALAMIN (B-12) 1000 MCG/1 ML VIAL ONE
[2019-01-26 10:48] VITALS: BP 152/55
--- NOTE | 2019-01-26 10:48 | NUR ---
CHF PT ARRIVED AT THE CHF CLINIC FOR F/U PT A/O X 3 0 DISTRESS. PT CURRENTLY ON ADEMPAS 2MG TID PO AND OPSUMIT 10MG QD
--- NOTE | 2019-01-26 10:48 | NUR ---
Discharge Instructions See e-MAR for any mediations given with this visit. Patient education given on disease process. Patient verbalized understanding. Previous labs reviewed. Patient discharged in stable condition with after care instructions and follow up appointment. MEDICATIONS VITAMIN B12 1110 Addendum: 01/26/19 at 1523 by AZAR LYNCH RN RN MS VITAMIN B12 IM X 1
[2019-01-26 11:45] VITALS: BP 152/55
[2019-01-26 15:52] LABS: Basophils # (auto) 0 uL; Basophils % (auto) 0.3 % (0.0-2.0); Eosinophils # (auto) 0.1 uL; Eosinophils % (auto) 1.8 % (0.0-7.0); Hemoglobin 8.6 g/dL (12.2-16.2); Lymphocytes # (auto) 0.8 uL; Lymphocytes % (auto) 14.8 % (10.0-50.0); Mean Corpuscular Hemoglobin 31.5 pg (28.0-32.0); Mean Corpuscular Hgb Conc. 32.9 g/dL (32.0-36.0); Mean Corpuscular Volume 95.6 fL (80.0-100.0); Monocytes # (auto) 0.4 uL; Monocytes % (auto) 7.6 % (0.0-12.0); Neutrophils # (auto) 3.9 uL; Neutrophils % (auto) 75.5 % (37.0-80.0); Platelet Count (auto) 291 10^3/uL (140-450); Red Blood Cells 2.72 10^6/uL (4.0-5.20); Red Cell Distribution Width 14.2 % (11.8-14.3); White Blood Cell 5.1 10^3/uL (4.4-10.8)
[2019-01-26 15:59] LABS: BUN/Creatinine Ratio 24.7; Calcium 8.2 mg/dL (8.5-10.1); Magnesium 2.6 mg/dL (1.6-2.6); Potassium 5.4 mmol/L (3.5-5.1)
== END | disposition home or self-care (01) ==
LOC: CHF HDHVI 10:31
PROVIDERS: ATTEND Internal Medicine Cardiovascular Disease
DX: I27.21 Secondary pulmonary arterial hypertension (principal); I11.0 Hypertensive heart disease with heart failure; I50.9 Heart failure, unspecified; R53.83 Other fatigue; D64.9 Anemia, unspecified; E83.40 Disorders of magnesium metabolism, unspecified
CPT/HCPCS: 36415; 80048; 83735; 83880; 85025; 96372; G0463; J3420

== ENCOUNTER → 2019-02-25 | Outpatient (CLI) | payer MEDICARE, MEDICAID ==
[~2019-02-25] VITALS: Ht 30.5 cm; Wt 0.5 kg
[2019-02-25 09:15] VITALS: BP 127/58
[2019-02-25 09:30] VITALS: BP 145/67
--- NOTE | 2019-02-25 09:30 | NUR ---
IN TO CLINIC FOR FOLLOWUP WITH FAMILY IN ATTENDANCE. WITHOUT DISTRESS. DENIES DISCOMFORT. AFFECT CHEERFUL AND COOPERATIVE AND VS WNL. LABS REVIEWED AND ADDITIONAL LABS DRAWN AND SENT. CLINIC PROVIDER CONSULTED AND ORDERS RECIEVED. DISCHARGED TO SELF CARE IN NO DISTRESS OR DISCOMFORT. MEDICATION ADMINISTRATION VIT B12 1000 MCG IM TO LEFT DELTOID AT 0925
[2019-02-25 12:07] LABS: Basophils # (auto) 0 uL; Basophils % (auto) 0.6 % (0.0-2.0); Eosinophils # (auto) 0.2 uL; Eosinophils % (auto) 3.4 % (0.0-7.0); Hematocrit 26.3 % (36.0-46.0); Hemoglobin 8.7 g/dL (12.2-16.2); Lymphocytes # (auto) 1.2 uL; Lymphocytes % (auto) 21.8 % (10.0-50.0); Mean Corpuscular Hemoglobin 31.4 pg (28.0-32.0); Mean Corpuscular Hgb Conc. 33.1 g/dL (32.0-36.0); Mean Corpuscular Volume 94.8 fL (80.0-100.0); Monocytes # (auto) 0.4 uL; Monocytes % (auto) 8.4 % (0.0-12.0); Neutrophils # (auto) 3.5 uL; Neutrophils % (auto) 65.8 % (37.0-80.0); Platelet Count (auto) 279 10^3/uL (140-450); Red Blood Cells 2.77 10^6/uL (4.0-5.20); Red Cell Distribution Width 13.7 % (11.8-14.3); White Blood Cell 5.4 10^3/uL (4.4-10.8)
[2019-02-25 12:24] LABS: Potassium 5.1 mmol/L (3.5-5.1)
[2019-02-25 12:28] LABS: BUN/Creatinine Ratio 26.4; Magnesium 2.6 mg/dL (1.6-2.6)
== END | disposition home or self-care (01) ==
LOC: CHF HDHVI 09:15
PROVIDERS: ATTEND Internal Medicine Cardiovascular Disease
DX: D64.9 Anemia, unspecified (principal); E83.40 Disorders of magnesium metabolism, unspecified; I11.0 Hypertensive heart disease with heart failure; I50.9 Heart failure, unspecified
CPT/HCPCS: 36415; 80048; 83735; 85025; 96372; G0463; J3420

== ENCOUNTER → 2019-03-10 | Outpatient (CLI) | payer MEDICARE, MEDICAID ==
[~2019-03-10] MED LIST changes: -CYANOCOBALAMIN (B-12) 1000 MCG/1 ML VIAL IM ONE; -CYANOCOBALAMIN (B-12) 1000 MCG/1 ML VIAL ONE
--- NOTE | 2019-03-10 12:00 | NUR ---
CARDIODYNAMICS DONE AND REVIEWED. USE OF SPORTS FITNESS AND WELLNESS DIRECTOR.
[2019-03-10 12:05] VITALS: BP_SYST 153; BP_SYST 157; BP_DIAS 64; BP_DIAS 75
--- NOTE | 2019-03-10 12:05 | NUR ---
IN TO CLINIC FOR FOLLOWUP FROM RECENT TRAVEL. PT REPORTS FEELING WELL AND TOLERATED TRAVEL WELL. PREVIOUS LABS REVIEWED. ADDITIONAL LABS DRAWN AND SENT. DISCHARGED TO SELF CARE IN NO DISTRESS OR DISCOMFORT .
[2019-03-10 16:11] LABS: Basophils # (auto) 0 uL; Basophils % (auto) 0.7 % (0.0-2.0); Eosinophils # (auto) 0.1 uL; Eosinophils % (auto) 2.3 % (0.0-7.0); Hematocrit 26.6 % (36.0-46.0); Hemoglobin 8.8 g/dL (12.2-16.2); Lymphocytes # (auto) 0.7 uL; Lymphocytes % (auto) 15.2 % (10.0-50.0); Mean Corpuscular Hemoglobin 31.1 pg (28.0-32.0); Mean Corpuscular Hgb Conc. 33.2 g/dL (32.0-36.0); Mean Corpuscular Volume 93.7 fL (80.0-100.0); Monocytes # (auto) 0.4 uL; Monocytes % (auto) 8.9 % (0.0-12.0); Neutrophils # (auto) 3.2 uL; Neutrophils % (auto) 72.9 % (37.0-80.0); Nucleated Red Blood Cells % 0.1 %; Platelet Count (auto) 303 10^3/uL (140-450); Red Blood Cells 2.84 10^6/uL (4.0-5.20); Red Cell Distribution Width 13.2 % (11.8-14.3); White Blood Cell 4.4 10^3/uL (4.4-10.8)
[2019-03-10 16:12] LABS: Calcium 8.5 mg/dL (8.5-10.1); Magnesium 2.6 mg/dL (1.6-2.6)
[2019-03-10 16:15] LABS: BUN/Creatinine Ratio 23.2
[2019-03-10 16:33] LABS: Potassium 5.7 mmol/L (3.5-5.1)
== END | disposition home or self-care (01) ==
LOC: CHF HDHVI 10:24
PROVIDERS: ATTEND Internal Medicine Cardiovascular Disease
DX: E83.40 Disorders of magnesium metabolism, unspecified (principal); D64.9 Anemia, unspecified; E03.9 Hypothyroidism, unspecified; D51.9 Vitamin B12 deficiency anemia, unspecified; I11.0 Hypertensive heart disease with heart failure; I50.9 Heart failure, unspecified; N28.9 Disorder of kidney and ureter, unspecified; I25.10 Atherosclerotic heart disease of native coronary artery without angina pectoris
CPT/HCPCS: 36415; 80048; 82607; 83735; 83880; 84443; 85025; 93701; G0463

== ENCOUNTER → 2019-03-24 | Outpatient (CLI) | payer MEDICARE, MEDICAID ==
--- NOTE | 2019-03-24 10:45 | NUR ---
CHF PT ARRIVED AT THE CHF CLINIC FOR F/U. A/O X 4 0 DISTRESS VSS
[2019-03-24 13:04] VITALS: BP 160/79
--- NOTE | 2019-03-24 13:04 | NUR ---
Discharge Instructions See e-MAR for any mediations given with this visit. Patient education given on disease process. Patient verbalized understanding. Previous labs reviewed. Patient discharged in stable condition with after care instructions and follow up appointment. MEDICATIONS VELTASSA 8.4 MEQ PO FIRST DOSE GIVEN AND TWO SAMPLES PROVIDED [facility] TO FOLLOW UP WITH PRESCRIPTION
[2019-03-24 16:05] LABS: Potassium 4.8 mmol/L (3.5-5.1)
== END | disposition home or self-care (01) ==
LOC: CHF HDHVI 10:16
PROVIDERS: ATTEND Internal Medicine Cardiovascular Disease
DX: R94.4 Abnormal results of kidney function studies (principal); E87.6 Hypokalemia; D64.9 Anemia, unspecified; E87.5 Hyperkalemia; I27.21 Secondary pulmonary arterial hypertension; I11.0 Hypertensive heart disease with heart failure; I50.9 Heart failure, unspecified
CPT/HCPCS: 36415; 82565; 84132; 84520; G0463

== ENCOUNTER → 2019-04-01 | Outpatient (CLI) | payer MEDICARE, MEDICAID ==
[2019-04-01 12:02] LABS: Potassium 4.1 mmol/L (3.5-5.1)
== END | disposition home or self-care (01) ==
LOC: LAB 10:17
PROVIDERS: ATTEND Internal Medicine Cardiovascular Disease
DX: R94.4 Abnormal results of kidney function studies (principal); E87.6 Hypokalemia
CPT/HCPCS: 36415; 82565; 84132; 84520

== ENCOUNTER → 2019-04-15 | Outpatient (CLI) | payer MEDICARE, MEDICAID ==
[2019-04-15 10:43] VITALS: BP 120/51
--- NOTE | 2019-04-15 10:43 | NUR ---
CHF PT ARRIVED AT CHF CLINIC FOR BI-WEEKLY FOLLOW F/U PT IS CURRENTLY ON ADEMPAS 2MG TID, OPSUMIT 10 MG Q DAY . VS STABLE PT A/O X 4 0 DISTRESS
[2019-04-15 12:28] VITALS: BP 147/74
[2019-04-15 16:01] LABS: Basophils # (auto) 0 uL; Basophils % (auto) 0.5 % (0.0-2.0); Eosinophils # (auto) 0.1 uL; Eosinophils % (auto) 2.3 % (0.0-7.0); Hemoglobin 8.7 g/dL (12.2-16.2); Lymphocytes # (auto) 0.5 uL; Lymphocytes % (auto) 11.8 % (10.0-50.0); Mean Corpuscular Hemoglobin 31.6 pg (28.0-32.0); Mean Corpuscular Hgb Conc. 33.6 g/dL (32.0-36.0); Mean Corpuscular Volume 94.2 fL (80.0-100.0); Monocytes # (auto) 0.3 uL; Monocytes % (auto) 7.2 % (0.0-12.0); Neutrophils # (auto) 3.6 uL; Neutrophils % (auto) 78.2 % (37.0-80.0); Platelet Count (auto) 274 10^3/uL (140-450); Red Blood Cells 2.76 10^6/uL (4.0-5.20); Red Cell Distribution Width 13.3 % (11.8-14.3); White Blood Cell 4.5 10^3/uL (4.4-10.8)
[2019-04-15 16:03] LABS: Albumin 2.9 g/dL (3.4-5.0); BUN/Creatinine Ratio 27.7; Magnesium 2.6 mg/dL (1.6-2.6); Potassium 5.1 mmol/L (3.5-5.1)
[2019-04-15 16:06] LABS: Bilirubin, Total 0.2 mg/dL (0.2-1.0); Total Protein 6.6 g/dL (6.4-8.2)
== END | disposition home or self-care (01) ==
LOC: CHF HDHVI 10:25
PROVIDERS: ATTEND Internal Medicine Cardiovascular Disease
DX: I11.0 Hypertensive heart disease with heart failure (principal); I50.9 Heart failure, unspecified; D64.9 Anemia, unspecified; K90.9 Intestinal malabsorption, unspecified; I27.21 Secondary pulmonary arterial hypertension; E87.5 Hyperkalemia; E78.5 Hyperlipidemia, unspecified; E11.9 Type 2 diabetes mellitus without complications; I25.10 Atherosclerotic heart disease of native coronary artery without angina pectoris; Z79.899 Other long term (current) drug therapy
CPT/HCPCS: 36415; 80053; 83036; 83735; 83880; 85025; 93701; G0463

== ENCOUNTER → 2019-05-04 | Outpatient (CLI) | payer MEDICARE, MEDICAID ==
[~2019-05-04] MED LIST changes: +CYANOCOBALAMIN (B-12) 1000 MCG/1 ML VIAL IM ONE; +CYANOCOBALAMIN (B-12) 1000 MCG/1 ML VIAL ONE; +cloNIDine HCL 0.1 MG TAB ONE
--- NOTE | 2019-05-04 10:30 | NUR ---
CHF PT AT CHF CLINIC FOR TX AND F/U FOR PAH AND CHF. A/O X 4 0 DISTRESS VSS
[2019-05-04 11:15] VITALS: BP 133/54
[2019-05-04 11:19] VITALS: BP 133/54
--- NOTE | 2019-05-04 11:19 | NUR ---
Discharge Instructions See e-MAR for any mediations given with this visit. Patient education given on disease process. Patient verbalized understanding. Previous labs reviewed. Patient discharged in stable condition with after care instructions and follow up appointment. MEDICATIONS VIT B12 IM LEFT DELTOID
[2019-05-04 15:58] LABS: Basophils # (auto) 0 uL; Basophils % (auto) 0.7 % (0.0-2.0); Eosinophils # (auto) 0.1 uL; Eosinophils % (auto) 2.4 % (0.0-7.0); Hematocrit 25.8 % (36.0-46.0); Hemoglobin 8.5 g/dL (12.2-16.2); Lymphocytes # (auto) 0.7 uL; Lymphocytes % (auto) 15.7 % (10.0-50.0); Mean Corpuscular Hgb Conc. 32.9 g/dL (32.0-36.0); Mean Corpuscular Volume 94.1 fL (80.0-100.0); Monocytes # (auto) 0.3 uL; Monocytes % (auto) 6.8 % (0.0-12.0); Neutrophils # (auto) 3.2 uL; Neutrophils % (auto) 74.4 % (37.0-80.0); Nucleated Red Blood Cells % 0.1 %; Platelet Count (auto) 279 10^3/uL (140-450); Red Blood Cells 2.74 10^6/uL (4.0-5.20); Red Cell Distribution Width 13.6 % (11.8-14.3); White Blood Cell 4.3 10^3/uL (4.4-10.8)
[2019-05-04 16:02] LABS: Calcium 8.1 mg/dL (8.5-10.1); Magnesium 2.3 mg/dL (1.6-2.6); Potassium 4.2 mmol/L (3.5-5.1)
[2019-05-04 16:03] LABS: BUN/Creatinine Ratio 23.9
== END | disposition home or self-care (01) ==
LOC: CHF HDHVI 10:27
PROVIDERS: ATTEND Internal Medicine Cardiovascular Disease
DX: I27.21 Secondary pulmonary arterial hypertension (principal); I11.0 Hypertensive heart disease with heart failure; I50.9 Heart failure, unspecified; I25.10 Atherosclerotic heart disease of native coronary artery without angina pectoris; D64.9 Anemia, unspecified; E78.5 Hyperlipidemia, unspecified; E11.9 Type 2 diabetes mellitus without complications; Z79.899 Other long term (current) drug therapy
CPT/HCPCS: 36415; 80048; 83735; 83880; 85025; 96372; G0463; J3420

== ENCOUNTER → 2019-05-19 | Outpatient (CLI) | payer MEDICARE, MEDICAID ==
[~2019-05-19] MED LIST changes: -CYANOCOBALAMIN (B-12) 1000 MCG/1 ML VIAL IM ONE; -CYANOCOBALAMIN (B-12) 1000 MCG/1 ML VIAL ONE; -cloNIDine HCL 0.1 MG TAB ONE
[2019-05-19 11:42] VITALS: BP 153/62
[2019-05-19 12:20] VITALS: BP 141/72
--- NOTE | 2019-05-19 12:20 | NUR ---
Discharge Instructions See e-MAR for any mediations given with this visit. Patient education given on disease process. Patient verbalized understanding. Previous labs reviewed. Patient discharged in stable condition with after care instructions and follow up appointment. CARDIODYNAMICS COMPLETED BY ABRAN GRAF AND REVIEWED BY NURSE ABRAN GRAF INTERPRETED
[2019-05-19 16:12] LABS: Magnesium 2.2 mg/dL (1.6-2.6); Potassium 4.5 mmol/L (3.5-5.1)
== END | disposition home or self-care (01) ==
LOC: CHF HDHVI 10:18
PROVIDERS: ATTEND Internal Medicine Cardiovascular Disease
DX: I11.0 Hypertensive heart disease with heart failure (principal); I50.9 Heart failure, unspecified; E87.6 Hypokalemia; I27.21 Secondary pulmonary arterial hypertension
CPT/HCPCS: 36415; 82565; 83735; 83880; 84132; 84520; 93701; G0463

== ENCOUNTER → 2019-07-07 | Outpatient (CLI) | payer MEDICARE, MEDICAID ==
[2019-07-07 12:20] VITALS: BP 150/88
--- NOTE | 2019-07-07 12:20 | NUR ---
CHF PT ARRIVED FROM BACK CLINIC C/O CHEST CONGESTION AND NOT FEELING WELL. LEVAQUIN , PREDNISONE AND COUGH SYRUP PRESCRIBED. LABS DRAWN VSS O DISTRESS
[2019-07-07 12:50] VITALS: BP 161/70
[2019-07-07 15:47] LABS: Basophils # (auto) 0 uL; Basophils % (auto) 0.7 % (0.0-2.0); Eosinophils # (auto) 0.1 uL; Eosinophils % (auto) 1.3 % (0.0-7.0); Hematocrit 28.6 % (36.0-46.0); Hemoglobin 9.6 g/dL (12.2-16.2); Lymphocytes # (auto) 0.6 uL; Lymphocytes % (auto) 13.6 % (10.0-50.0); Mean Corpuscular Hemoglobin 30.8 pg (28.0-32.0); Mean Corpuscular Hgb Conc. 33.4 g/dL (32.0-36.0); Monocytes # (auto) 0.5 uL; Monocytes % (auto) 10.6 % (0.0-12.0); Neutrophils # (auto) 3.2 uL; Neutrophils % (auto) 73.8 % (37.0-80.0); Platelet Count (auto) 363 10^3/uL (140-450); Red Blood Cells 3.11 10^6/uL (4.0-5.20); Red Cell Distribution Width 13.8 % (11.8-14.3); White Blood Cell 4.3 10^3/uL (4.4-10.8)
[2019-07-07 15:55] LABS: Albumin 2.9 g/dL (3.4-5.0); Calcium 8.3 mg/dL (8.5-10.1); Magnesium 2.5 mg/dL (1.6-2.6); Potassium 4.1 mmol/L (3.5-5.1)
[2019-07-07 15:59] LABS: BUN/Creatinine Ratio 14.4; Bilirubin, Total 0.2 mg/dL (0.2-1.0); Total Protein 7.1 g/dL (6.4-8.2)
== END | disposition home or self-care (01) ==
LOC: CHF HDHVI 10:21
PROVIDERS: ATTEND Internal Medicine Cardiovascular Disease
DX: I50.9 Heart failure, unspecified (principal); R53.83 Other fatigue; K90.9 Intestinal malabsorption, unspecified
CPT/HCPCS: 36415; 80053; 82306; 82607; 83735; 83880; 85025; G0463

== ENCOUNTER → 2019-08-10 | Outpatient (CLI) | payer MEDICARE, MEDICAID ==
--- NOTE | 2019-08-10 10:00 | NUR ---
CHF PT ARRIVED TO THE CHF CLINIC FOR MONTHLY F/U AND TREATMENT. NEW CLIENT BANKING SERVICES CLERK AT BEDSIDE DISCUSSED 2 WEEK LAB APPOINTMENT. STAT LABS SENT
[2019-08-10 11:10] VITALS: BP 167/70
--- NOTE | 2019-08-10 11:18 | NUR ---
Discharge Instructions See e-MAR for any mediations given with this visit. Patient education given on disease process. Patient verbalized understanding. Previous labs reviewed. Patient discharged in stable condition with after care instructions and follow up appointment. NOTE 6MWT DONE BY SAMANTHA GRAF REVIEWED BY DAVID LI 225 METERS COMPLETED BY PT
[2019-08-10 15:43] LABS: Basophils # (auto) 0 10 ^3/uL (0-0.2); Eosinophils # (auto) 0.1 10 ^3/uL (0-0.8); Hematocrit 25.1 % (36.0-46.0); Hemoglobin 8.1 g/dL (12.2-16.2); Lymphocytes # (auto) 0.6 10 ^3/uL (0.4-5.4); Nucleated Red Blood Cells % 0.1 %; Red Cell Distribution Width 14.6 % (11.8-14.3)
[2019-08-10 15:45] LABS: Basophils % (auto) 0.8 % (0.0-2.0); Eosinophils % (auto) 1.6 % (0.0-7.0); Lymphocytes % (auto) 14.7 % (10.0-50.0); Mean Corpuscular Hemoglobin 30.2 pg (28.0-32.0); Mean Corpuscular Hgb Conc. 32.5 g/dL (32.0-36.0); Monocytes # (auto) 0.3 10 ^3/uL (0-1.3); Monocytes % (auto) 6.9 % (0.0-12.0); Neutrophils # (auto) 3.3 10 ^3/uL (1.6-8.6); Platelet Count (auto) 305 10^3/uL (140-450); White Blood Cell 4.4 10^3/uL (4.4-10.8)
[2019-08-10 15:54] LABS: Albumin 2.6 g/dL (3.4-5.0); BUN/Creatinine Ratio 18.9; Calcium 7.9 mg/dL (8.5-10.1); Potassium 4.3 mmol/L (3.5-5.1)
[2019-08-10 15:57] LABS: Bilirubin, Total 0.2 mg/dL (0.2-1.0); Total Protein 5.9 g/dL (6.4-8.2)
== END | disposition home or self-care (01) ==
LOC: CHF HDHVI 10:32
PROVIDERS: ATTEND Internal Medicine Cardiovascular Disease
DX: I50.9 Heart failure, unspecified (principal)
CPT/HCPCS: 36415; 80053; 83880; 85025; 94618; G0463

== ENCOUNTER 2019-08-17 12:01 | Inpatient (IN) | payer MEDICARE, MEDICAID ==
--- NOTE | 2019-08-01 20:00 | NUR ---
OPEN ASSUMED CARE OF FEMALE PT ORALLY INTUBATED. PT SEDATED ON VERSED GTT 14 MG/HR, FENTANYL GTT 100 MCG/HR. PT GRIMACES TO TACTILE STIMULI. PUPILS EQUAL AND REACTIVE. OTHERWISE NON RESPONSIVE. PT ON AIRBORNE ISOLATION IN NEGATIVE PRESSURE ROOM A RULE OUT COVID-19 PT. PROPER PPE IN USE. PT AT TIME A-PACED, UNDERLYING RHYTHM SR WITH PAC'S AND PVC'S ON MANAGER BILINGUAL WITH PHENYLEPHRINE GTT INFUSING AT 110 MCG/MIN. PT ON HCO3 GTT AT 125 ML/HR. 22G IV TO R. HAND WITH ALBUMIN INFUSING, 18 G IV TO L. F/A WITH PHENYLEPHRINE INFUSING. 22 G IV TO L. WRIST WITH SEDATION INFUSING, 20G IV TO R. F.A WITH HCO3- GTT INFUSING. ALL SITES B&P. OGT TO LIS DRAINING BILE. PLACEMENT VERIFIED. VALENTINE SCD'S IN PLACE. NO SKIN BREAKDOWN OBSERVED. DAWKINS TO GRAVITY DRAINING YELLOW URINE. BED IN LOWEST LOCKED POSITION. SIDE RAILS UP X 2. HOB ELEVATED 30 DEGREES. PT REPOSITIONED WITH PILLOWS USED TO OFFLOAD BONY PROMINENCES. NO INDICATION OF PAIN OBSERVED. PT IN FULL VIEW OF RN STATION. WILL CONTINUE TO MONITOR.
--- NOTE | 2019-08-01 20:05 | NUR ---
DISREGARD OPENING NOTE 08/01/19 WRONG DATE
[~2019-08-17] VITALS: Ht 152.4 cm; Wt 68.0 kg
[2019-08-17] MEDS ORDERED: IPRATROPIUM BROM 0.5 MG/2.5ML INH SOL HHN ONE (12:30)
[2019-08-17] MEDS ORDERED: ALBUTEROL SULF 2.5 MG/0.5ML(0.5%) NEB SOLN HHN ONE (12:30)
[2019-08-17 13:15] VITALS: BP 172/62
[2019-08-17] MEDS ORDERED: ENALAPRILAT 1.25 MG/ML-1ML VIAL IV ONE (13:15)
[2019-08-17] MEDS ORDERED: NITROGLYCERIN 0.2MG/HR TOPICAL PATCH TD ONE (13:30)
[2019-08-17 14:25] LABS: Basophils # (auto) 0 10 ^3/uL (0-0.2); Basophils % (auto) 0.1 % (0.0-2.0); Eosinophils # (auto) 0 10 ^3/uL (0-0.8); Hematocrit 27.2 % (36.0-46.0); Hemoglobin 8.9 g/dL (12.2-16.2); Lymphocytes # (auto) 0.3 10 ^3/uL (0.4-5.4); Lymphocytes % (auto) 3.6 % (10.0-50.0); Mean Corpuscular Hemoglobin 29.9 pg (28.0-32.0); Mean Corpuscular Hgb Conc. 32.6 g/dL (32.0-36.0); Mean Corpuscular Volume 91.6 fL (80.0-100.0); Monocytes # (auto) 0 10 ^3/uL (0-1.3); Monocytes % (auto) 0.6 % (0.0-12.0); Neutrophils # (auto) 6.8 10 ^3/uL (1.6-8.6); Neutrophils % (auto) 95.7 % (37.0-80.0); Nucleated Red Blood Cells % 0.4 %; Platelet Count (auto) 400 10^3/uL (140-450); Red Blood Cells 2.97 10^6/uL (4.0-5.20); Red Cell Distribution Width 14.6 % (11.8-14.3); White Blood Cell 7.1 10^3/uL (4.4-10.8)
[2019-08-17 14:26] VITALS: BP 172/61
[2019-08-17 14:47] LABS: Albumin 1.9 g/dL (3.4-5.0); Anion Gap 11 (5-15); Calcium 7.9 mg/dL (8.5-10.1); Carbon Dioxide 17 mmol/L (21-32); Chloride 105 mmol/L (98-107); Glucose 132 mg/dL (74-106); Magnesium 2.5 mg/dL (1.6-2.6); Potassium 5.5 mmol/L (3.5-5.1); Sodium 133 mmol/L (136-145)
[2019-08-17 14:49] LABS: Alanine Aminotransferase 21 U/L (13-56); Aspartate Aminotransferase 21 U/L (15-37); BUN/Creatinine Ratio 14.7; GFR African American 8 mL/min; GFR Non-African American 6 mL/min
[2019-08-17 14:54] LABS: Alkaline Phosphatase 131 U/L (45-117); Bilirubin, Total 0.5 mg/dL (0.2-1.0); Total Protein 6.5 g/dL (6.4-8.2)
[2019-08-17 15:07] LABS: Blood Urea Nitrogen 98 mg/dL (7-18)
[2019-08-17] MEDS ORDERED: HYDROcodone-ACET 5/325MG TAB PO ONE (15:15)
[2019-08-17] MEDS ORDERED: FUROSEMIDE 40 MG/4 ML VIAL IV ONE (15:15)
[2019-08-17 16:38] VITALS: BP 104/47
[2019-08-17] MEDS ORDERED: SODIUM BICARBONATE 50ML VIAL 50 ML in D5W/SOD CHL 0.45% 1,000 ML IV SCH (17:15)
[2019-08-17] MEDS ORDERED: ONDANSETRON HCL 4 MG/2 ML VIAL IV PRN (17:15)
[2019-08-17] MEDS ORDERED: DEXTROSE (50%) 50ML SYRG IV PRN (17:15)
[2019-08-17 17:44] VITALS: BP 109/44
[2019-08-17] MEDS: InsuLIN REG 1unit/0.01ml Soln (100units/ml) SC SCH (18:00)
[2019-08-17] MEDS: ACCU-CHEK COMFORT CURVE STRIP VI SCH (18:08)
[2019-08-17] MEDS ORDERED: ETOMIDATE (2MG/ML) 20ML VIAL IV ONE (20:05)
[2019-08-17] MEDS ORDERED: SUCCINYLCHOLINE CHLORIDE 20 MG/ML 10ML VIAL IV ONE (20:06)
[2019-08-17 20:21] VITALS: BP 104/28
[2019-08-17] MEDS: MIDAZOLAM DRIP 50 mg/50mL 50 ML IV SCH ×2 (20:25→23:40)
[2019-08-17] MEDS ORDERED: MIDAZOLAM DRIP 50 mg/50mL 50 ML IV ONE ×2 (20:26→23:37)
[2019-08-17] MEDS ORDERED: fentaNYL Drip 2500mCg/250mlNS 250 ML IV ONE (20:56)
[2019-08-17] MEDS: fentaNYL Drip 2500mCg/250mlNS 250 ML IV SCH (20:58)
[2019-08-17] MEDS ORDERED: SODIUM CHLORIDE 0.9% 1,000 ML IV ONE (21:45)
[2019-08-17] MEDS ORDERED: ALBUMIN 25% 50 ML IV ONE (21:45)
[2019-08-17] MEDS ORDERED: ALBUMIN 25% 100 ML IV ONE (22:30)
[2019-08-17] MEDS ORDERED: SODIUM BICARBONATE 8.4 % INJ 50ML VIAL IV ONE (22:30)
[2019-08-17] MEDS ORDERED: SODIUM BICARBONATE 50ML VIAL 150 ML in SOD CHL 0.45% 1,000 ML IV ONE (22:30)
[2019-08-17] MEDS: methylPREDNISolone SOD SUCC 40 MG/ML VL IV SCH (22:35)
[2019-08-17 22:51] VITALS: BP 62/24
[2019-08-17] MEDS ORDERED: PHENYLEPHRINE IV 250 ML IV ONE (23:00)
[2019-08-18] VITALS (102 sets, daily range): BP systolic 80–149; BP diastolic 31–116
[2019-08-18] MEDS ORDERED: SODIUM BICARBONATE 50ML VIAL 150 ML in SOD CHL 0.45% 1,000 ML IV SCH ×2
--- NOTE | 2019-08-18 00:20 | NUR ---
Admit to ICU from ER on vent KUNAL SANTIAGO admitted to ICU via gurney on engine monitor, intubated and being bagged by Respiratory Therapist. Patient transferred to bed, connected to mechanical ventilator by therapist, AVERYM at bedside. Patient connected to ICU monitoring, weighed by bedscale, oriented to Ivelisse Lema, primary RN, unit, ventilator and sedation. NOTE: PT PLACED ON AIRBORNE ISOLATION IN NEGATIVE PRESSURE ROOM A RULE OUT COVID-19 PT.PROPER PPE IN USE. PT TO UNIT SEDATED ON VERSED GTT 15 MG/HR, FENTANYL GTT 125 MCG/HR. PT GRIMACES TO TACTILE STIMULI. PUPILS EQUAL AND REACTIVE. OTHERWISE NON RESPONSIVE. PT SR ON COMMUTATOR ASSEMBLER WITH PHENYLEPHRINE GTT INFUSING AT 100 MCG/MIN. PT ON HCO3 GTT AT 100 ML/HR. 18 G IV TO R. HAND WITH HCO3 GTT INFUSING B&P, 18 G IV TO L. F/A WITH SEDATION AND PHENYLEPHRINE INFUSING. SITE B&P. OGT PLACED TO LIS DRAINING BILE. PLACEMENT VERIFIED. NO SKIN BREAKDOWN OBSERVED. DAWKINS TO GRAVITY DRAINING YELLOW URINE. BED IN LOWEST LOCKED POSITION. SIDE RAILS UP X 2. HOB ELEVATED 30 DEGREES. PT REPOSITIONED WITH PILLOWS USED TO OFFLOAD BONY PROMINENCES. NO INDICATION OF PAIN OBSERVED. PT IN FULL VIEW OF RN STATION. WILL CONTINUE TO MONITOR.
[2019-08-18] MEDS: PIPERACILLIN-TAZOB 2.25GM 50 ML IV SCH ×5 (00:30→23:46)
[2019-08-18] MEDS: InsuLIN REG 1unit/0.01ml Soln (100units/ml) SC SCH ×4 (00:30→18:12)
[2019-08-18] MEDS: RIOCIGUAT PO SCH ×3 (00:30→13:44)
[2019-08-18] MEDS ORDERED: SODIUM BICARBONATE 8.4 % INJ 50ML VIAL IV ONE (00:41)
[2019-08-18] MEDS ORDERED: SUCCINYLCHOLINE CHLORIDE 20 MG/ML 10ML VIAL IV ONE (01:45)
[2019-08-18] MEDS ORDERED: ETOMIDATE (2MG/ML) 20ML VIAL IV ONE (01:45)
[2019-08-18] MEDS: PHENYLEPHRINE IV 250 ML IV SCH ×3 (02:00→15:33)
[2019-08-18] MEDS: MIDAZOLAM DRIP 50 mg/50mL 50 ML IV SCH ×7 (02:30→23:45)
--- NOTE | 2019-08-18 04:00 | NUR ---
20 G IV S/L TO R. AC LEAKING WHEN FLUSHED 20 G CATH DC'S INTACT. NEW 22 G IV PLACED TO L. WRIST AFTER 2 ATTEMPTS.
[2019-08-18] MEDS ORDERED: SODIUM BICARBONATE 50ML VIAL 150 ML in D5W/SOD CHL 0.45% 1,000 ML IV SCH (04:30)
[2019-08-18 04:55] LABS: Mean Corpuscular Volume 92.2 fL (80.0-100.0)
[2019-08-18 04:57] LABS: Hematocrit 20.9 % (36.0-46.0); Mean Corpuscular Hemoglobin 29.9 pg (28.0-32.0); Mean Corpuscular Hgb Conc. 32.4 g/dL (32.0-36.0); Platelet Count (auto) 355 10^3/uL (140-450); Red Blood Cells 2.26 10^6/uL (4.0-5.20); Red Cell Distribution Width 14.8 % (11.8-14.3); White Blood Cell 7.8 10^3/uL (4.4-10.8)
[2019-08-18 05:15] LABS: Calcium 7.1 mg/dL (8.5-10.1); Magnesium 2.4 mg/dL (1.6-2.6); Potassium 5.3 mmol/L (3.5-5.1)
[2019-08-18 05:18] LABS: BUN/Creatinine Ratio 15.3
[2019-08-18] MEDS: methylPREDNISolone SOD SUCC 40 MG/ML VL IV SCH ×3 (05:31→21:57)
[2019-08-18] MEDS: LEVOTHYROXINE SODIUM 25 MCG TAB PO SCH (05:32)
[2019-08-18 05:40] LABS: Hemoglobin 6.8 g/dL (12.2-16.2)
[2019-08-18 05:41] LABS: Basophils % (manual) 0 (0.0-2.0); Blast Cells 0; Eosinophils % (manual) 0 (0-7); Myelocytes % 0; Promyelocytes % 0; Reactive Lymphocytes 0
[2019-08-18] MEDS: ACCU-CHEK COMFORT CURVE STRIP VI SCH ×4 (05:50→17:50)
[2019-08-18 07:00] LABS: Band Neutrophils % (manual) 23; Lymphocytes % (manual) 4 (10.0-50.0); Metamyelocytes % 3; Monocytes % (manual) 3 (0-12)
--- NOTE | 2019-08-18 08:50 | NUR ---
INFECTION CONTROL Michael Palmer MD assessing patient for COVID19 parameters. MD aware swab was collected yesterday, awaiting results. Patient has not had fever since admission. notified that was ordering physician for COVID19 r/o.
--- NOTE | 2019-08-18 08:54 | NUR ---
PAGED DR. PEREIRA PAGED DR. PEREIRA REGARDS LABS, CELI CONCENTRATION AND NPO STATUS.
--- NOTE | 2019-08-18 09:00 | NUR ---
INITIAL ASSESSMENT Report received from IRMA LI, assuming care. PT is on ventilator, tolerating it well, SpO2 93%, no sign of distress. See physical assessment for quality of lung sounds. Running IV drips, phenylephrine, D5W 1/2NS bicarb, versed and fentanyl. PT hemodynamically stable at this time, no sign of pain or distress noted. PT is on airborne contact, taking appropriate precautions per hospital policy. Bed at the lowest position, alarms in place, continuing to monitor pt.
--- NOTE | 2019-08-18 09:00 | NUR ---
RADIOLOGY CONSULT Jaimie LI from radiology stated that patient cannot have temporary Saran catheter placement at this time due to patient being on airborne isolation at this time. Once patient is r/o for COVID19 then isolation will be removed and Radiologist will be notified.
--- NOTE | 2019-08-18 09:20 | NUR ---
RETURNED PAGE aware of decreased hgb level 8.9 to 6.8. MD ordered for 1 unit PRBC transfusion, type and screen, and Lasix. Orders placed.
[2019-08-18] MEDS ORDERED: FUROSEMIDE 100 MG/10ML VIAL IV ONE (09:45)
--- NOTE | 2019-08-18 09:46 | NUR ---
CONTACT Spoke with patient shelby Feng, verified patients identity. Ping stated that patient lives at home with her. Family member updated regarding patient status. Password placed on the account. Blood consent obtained.
[2019-08-18] MEDS: AZITHROMYCIN 500MG/ 250ML 250 ML IV SCH (09:48)
[2019-08-18] MEDS: PHENYLEPHRINE INJ 40 MG in SODIUM CHL 0.9% 250 ML IV SCH ×3 (10:18→21:20)
--- NOTE | 2019-08-18 10:58 | NUR ---
IV removal IV site appeared puffy and no blood return. IV DC'd with clean sterile technique, catheter fully intact. Pressure dressing applied to site. Patient tolerated well.
--- NOTE | 2019-08-18 11:01 | NUR ---
IV insertion IV access obtained, via clean sterile technique by inserting 22 gauge catheter at right hand after 1st attempt. IV secured properly. No trauma to site. Patient tolerated well.
--- NOTE | 2019-08-18 12:00 | NUR ---
WOUND CARE NOTE: IN TO SEE PATIENT AT THIS TIME PER WOUND CARE CONSULT REQUEST. PATIENT IS INTUBATED IN ICU. SHE IS VENTILATED, SEDATED. ADMITTING DIAGNOSIS IS PNA, RESPIRATORY FAILURE, ACUTE RENAL FAILURE. CURRENT VÍCTOR SCORE IS 11. PATIENT IS WOUND FREE AT THIS TIME. SKIN/WOUND CARE PLAN UPDATED. PATIENT WOULD BENEFIT FROM: FREQUENT TURN SCHEDULE Q 2 HOURS, PRN CONDITION PERMITS WITH PRESSURE REDISTRIBUTION USING PILLOWS/WEDGES, BID/PRN APPLICATION WITH MOISTURE BARRIER CREAM/OPTIFOAM GENTLE SACRAL DRESSING PREVENTATIVE, DIETARY CONSULT, SKIN/WOUND CARE PLAN, CONTINUED MONITORING BY WOUND CARE TEAM.
--- NOTE | 2019-08-18 12:20 | NUR ---
LABS Urine sent to lab.
[2019-08-18] MEDS: ALBUMIN 25% 100 ML IV SCH ×2 (12:27→19:08)
[2019-08-18 12:43] LABS: Urine Bacteria NONE SEEN /hpf (None Seen); Urine Blood 2+ /uL (Negative); Urine Hyaline Cast MOD /lpf (0 - 2); Urine Mucus FEW (None Seen); Urine Specific Gravity 1.013 (1.001-1.035); Urine WBC 5 /hpf (0 - 5)
--- NOTE | 2019-08-18 12:45 | NUR ---
MD VISIT: NEPHROLOGY rounding on patient. MD reviewing medical chart. New orders received.
--- NOTE | 2019-08-18 12:53 | NUR ---
RADIOLOGY X-ray tech at bedside for CXR.
[2019-08-18 13:00] LABS: Protein, Urine 195.2 mg/dL (0.0-11.9)
--- NOTE | 2019-08-18 13:39 | NUR ---
BLOOD PRODUCT One unit of PRBC administration begun. No reactions noted at this time.
[2019-08-18] MEDS: fentaNYL Drip 2500mCg/250mlNS 250 ML IV SCH (14:00)
--- NOTE | 2019-08-18 14:30 | NUR ---
DR. PEREIRA ROUNDING ON PT DR. PEREIRA UPDATED ON PATIENT'S STATUS, NEW ORDERS RECEIVED.
--- NOTE | 2019-08-18 14:50 | NUR ---
PHARMACY Pharmacy notified of new IVF sodium bicarb gtt. IVF not available at this time. Requesting medication, awaiting delivery.
[2019-08-18] MEDS: SODIUM BICARBONATE 50ML VIAL 150 ML in D5W 5% 1,000 ML IV SCH (15:28)
--- NOTE | 2019-08-18 16:00 | NUR ---
CARES Complete linen and gown change complete. Skin reassessment performed, skin remains intact. Patient repositioned on side, oral care performed. All extremities off loaded on pillows. Bed locked in lowest position, alarms in place. Will continue to monitor.
--- NOTE | 2019-08-18 16:47 | NUR ---
PAGED paged regarding ABG results, positive blood culture, and increase in ectopy (PAC/PVC's). Patient remaining hemodynamically stable as neosynephrine gtt has been titrated down. Will continue to monitor.
--- NOTE | 2019-08-18 16:57 | NUR ---
MD RETURNED PAGE aware of increase in PAC and PVC. MD ordered for labs to be obtained. Will notify MD of results.
--- NOTE | 2019-08-18 17:49 | NUR ---
LAB medical equipment repair technician at bedside for blood draw.
[2019-08-18 18:15] LABS: Hematocrit 24.9 % (36.0-46.0); Hemoglobin 8.5 g/dL (12.2-16.2); Mean Corpuscular Hemoglobin 27.8 pg (28.0-32.0); Mean Corpuscular Hgb Conc. 34.1 g/dL (32.0-36.0); Mean Corpuscular Volume 81.6 fL (80.0-100.0); Platelet Count (auto) 311 10^3/uL (140-450); Red Blood Cells 3.05 10^6/uL (4.0-5.20); White Blood Cell 12.4 10^3/uL (4.4-10.8)
[2019-08-18 18:17] LABS: Red Cell Distribution Width 23.4 % (11.8-14.3)
[2019-08-18 18:19] LABS: Basophils % (manual) 0 (0.0-2.0); Blast Cells 0; Eosinophils % (manual) 0 (0-7); Metamyelocytes % 0; Myelocytes % 0; Promyelocytes % 0; Reactive Lymphocytes 0
[2019-08-18 18:26] LABS: BUN/Creatinine Ratio 16.1; Calcium 7.4 mg/dL (8.5-10.1); Potassium 4.5 mmol/L (3.5-5.1)
--- NOTE | 2019-08-18 18:56 | NUR ---
MD UPDATE called for update on patient. MD aware of radiology consult on hold until COVID19 ruled out. MD aware of labs, vitals, and microbiology results. Orders obtained.
--- NOTE | 2019-08-18 19:00 | NUR ---
Dr. Rick at bedside
--- NOTE | 2019-08-18 19:20 | NUR ---
REPORT Report given to Ivelisse LI, care endorsed.
[2019-08-18 19:45] LABS: Band Neutrophils % (manual) 7; Lymphocytes % (manual) 4 (10.0-50.0); Monocytes % (manual) 1 (0-12)
--- NOTE | 2019-08-18 19:47 | NUR ---
FAMILY CONTACT CONTACTED PT'S NIECE ASTON WITH WHOM THE PT LIVES. ASTON WILL BRING IN PT'S OWN MEDS.
--- NOTE | 2019-08-18 20:00 | NUR ---
OPEN ASSUMED CARE OF FEMALE PT ORALLY INTUBATED. PT SEDATED ON VERSED GTT 14 MG/HR, FENTANYL GTT 100 MCG/HR. PT GRIMACES TO TACTILE STIMULI. PUPILS EQUAL AND REACTIVE. OTHERWISE NON RESPONSIVE. PT ON AIRBORNE ISOLATION IN NEGATIVE PRESSURE ROOM A RULE OUT COVID-19 PT. PROPER PPE IN USE. PT AT TIME A-PACED, UNDERLYING RHYTHM SR WITH PAC'S AND PVC'S ON PIPE CLEANER WITH PHENYLEPHRINE GTT INFUSING AT 110 MCG/MIN. PT ON HCO3 GTT AT 125 ML/HR. 22G IV TO R. HAND WITH ALBUMIN INFUSING, 18 G IV TO L. F/A WITH PHENYLEPHRINE INFUSING. 22 G IV TO L. WRIST WITH SEDATION INFUSING, 20G IV TO R. F.A WITH HCO3- GTT INFUSING. ALL SITES B&P. OGT TO LIS DRAINING BILE. PLACEMENT VERIFIED. VALENTINE SCD'S IN PLACE. NO SKIN BREAKDOWN OBSERVED. DAWKINS TO GRAVITY DRAINING YELLOW URINE. BED IN LOWEST LOCKED POSITION. SIDE RAILS UP X 2. HOB ELEVATED 30 DEGREES. PT REPOSITIONED WITH PILLOWS USED TO OFFLOAD BONY PROMINENCES. NO INDICATION OF PAIN OBSERVED. PT IN FULL VIEW OF RN STATION. WILL CONTINUE TO MONITOR.
--- NOTE | 2019-08-18 21:00 | NUR ---
PT'S OWN MEDS TO PHARMACY.
[2019-08-18] MEDS ORDERED: RIOCIGUAT PO SCH (22:00)
[2019-08-18] MEDS ORDERED: MACITENTAN 10 MG PO SCH (22:15)
[2019-08-19] VITALS (114 sets, daily range): BP systolic 80–162; BP diastolic 34–71
[2019-08-19] MEDS: ACCU-CHEK COMFORT CURVE STRIP VI SCH ×4 (00:13→18:07)
[2019-08-19] MEDS: InsuLIN REG 1unit/0.01ml Soln (100units/ml) SC SCH ×4 (00:14→18:00)
[2019-08-19] MEDS: SODIUM BICARBONATE 50ML VIAL 150 ML in D5W 5% 1,000 ML IV SCH (01:10)
--- NOTE | 2019-08-19 02:45 | NUR ---
Patient bathe/linen change Patient given complete bath. Skin integrity assessed for any changes. Optifoam gentle sacral dressing as preventative. Linens changed. Hair shampooed and combed. Patient repositioned for comfort.
[2019-08-19] MEDS: ALBUMIN 25% 100 ML IV SCH (03:37)
[2019-08-19] MEDS: MIDAZOLAM DRIP 50 mg/50mL 50 ML IV SCH ×4 (03:43→22:00)
[2019-08-19 04:38] LABS: Albumin 2.1 g/dL (3.4-5.0); BUN/Creatinine Ratio 15.8; Calcium 7.3 mg/dL (8.5-10.1); Potassium 3.9 mmol/L (3.5-5.1)
[2019-08-19 04:40] LABS: Bilirubin, Total 0.6 mg/dL (0.2-1.0); Total Protein 5.3 g/dL (6.4-8.2)
[2019-08-19 04:43] LABS: Basophils # (auto) 0 10 ^3/uL (0-0.2); Eosinophils # (auto) 0 10 ^3/uL (0-0.8); Hematocrit 22.2 % (36.0-46.0); Hemoglobin 7.8 g/dL (12.2-16.2); Lymphocytes # (auto) 0.4 10 ^3/uL (0.4-5.4); Lymphocytes % (auto) 3.1 % (10.0-50.0); Mean Corpuscular Hgb Conc. 34.9 g/dL (32.0-36.0); Mean Corpuscular Volume 80.3 fL (80.0-100.0); Monocytes # (auto) 0.2 10 ^3/uL (0-1.3); Monocytes % (auto) 1.5 % (0.0-12.0); Neutrophils # (auto) 11.2 10 ^3/uL (1.6-8.6); Neutrophils % (auto) 95.4 % (37.0-80.0); Nucleated Red Blood Cells % 0.5 %; Platelet Count (auto) 264 10^3/uL (140-450); Red Blood Cells 2.77 10^6/uL (4.0-5.20); White Blood Cell 11.7 10^3/uL (4.4-10.8)
[2019-08-19 04:45] LABS: Red Cell Distribution Width 23.6 % (11.8-14.3)
[2019-08-19] MEDS: LEVOTHYROXINE SODIUM 25 MCG TAB PO SCH (05:29)
[2019-08-19] MEDS: PIPERACILLIN-TAZOB 2.25GM 50 ML IV SCH ×2 (05:29→12:10)
[2019-08-19] MEDS: methylPREDNISolone SOD SUCC 40 MG/ML VL IV SCH ×3 (06:22→22:54)
[2019-08-19] MEDS: AZITHROMYCIN 500MG/ 250ML 250 ML IV SCH (09:58)
--- NOTE | 2019-08-19 11:50 | NUR ---
DR. PEREIRA HERE TO SEE PATIENT. SEE EMR FOR ANY NEW ORDERS.
[2019-08-19] MEDS ORDERED: SODIUM CHLORIDE 0.9% 500 ML IV ONE (12:00)
[2019-08-19] MEDS: SODIUM CHLORIDE 0.9% 1,000 ML IV SCH (12:11)
--- NOTE | 2019-08-19 12:30 | NUR ---
DR. BERMUDEZ HERE TO SEE PATIENT. SEE MD NOTES AND EMR FOR ANY NEW ORDERS.
[2019-08-19] MEDS: fentaNYL Drip 2500mCg/250mlNS 250 ML IV SCH (13:26)
--- NOTE | 2019-08-19 14:13 | NUR ---
DR. FRIAS HERE TO SEE PATIENT. SEE MD NOTES AND EMR FOR ANY NEW ORDERS.
--- NOTE | 2019-08-19 15:36 | NUR ---
NUTRITION ASSESSMENT NOTES Please refer to link notes of nutrition screen form filed under the intervention section of the plan of care for further details. Est. Energy Needs: 7961-8204 kcal (25-30 kcal/kg BW). Est. Protein Needs: 59-76 gms/day (1.0-1.3 gms/kg BW). Will continue to monitor pertinent labs and reassess nutrient need prn Addendum: 08/19/19 at [address] Amended: Links added.
--- NOTE | 2019-08-19 15:50 | NUR ---
BLOOD TRANSFUSION 1 UNIT OF PRBC STARTED. SEE TRANSFUSION SPREAD SHEET.
--- NOTE | 2019-08-19 17:37 | NUR ---
BLOOD TRANSFUSION FINISHED. NO ADVERSE REACTIONS NOTES. PATIENT TOLERATED WELL.
--- NOTE | 2019-08-19 19:30 | NUR ---
PT INTUBATED AND SEDATED, VENT TO ETT. NO SOB OR DISTRESS. OGT TO LIS W/ CLEAR GREEN SECRETIONS. DAWKINS CATHETER DRAINING VIA GRAVITY W/ YELLOW URINE. SKIN INTACT, DRESSING APPLIED TO SACRUM FOR PROTECTION. SAFETY PRECAUTIONS IN PLACE. WILL CONTINUE TO MONITOR.
[2019-08-19] MEDS: MEROPENEM 500MG IVPB 50 ML IV SCH (20:16)
[2019-08-19] MEDS: PHENYLEPHRINE INJ 40 MG in SODIUM CHL 0.9% 250 ML IV SCH (20:58)
--- NOTE | 2019-08-19 22:00 | NUR ---
FIO2 INCREASED TO 55% BY RT D/T PT DESAT 88%. PT TOLERATING WELL. O2SAT 97%. SAFETY PRECAUTIONS IN PLACE. WILL CONTINUE TO MONITOR.
[2019-08-20] VITALS (117 sets, daily range): BP systolic 46–160; BP diastolic 5–92
[2019-08-20] MEDS: ACCU-CHEK COMFORT CURVE STRIP VI SCH ×4 (00:54→17:44)
[2019-08-20] MEDS: MIDAZOLAM DRIP 50 mg/50mL 50 ML IV SCH ×4 (01:00→17:54)
--- NOTE | 2019-08-20 01:00 | NUR ---
FIO2 DECREASED TO 45% BY RT, PT TOLERATING WELL. O2SAT 95%. SAFETY PRECAUTIONS IN PLACE. WILL CONTINUE TO MONITOR.
[2019-08-20] MEDS: InsuLIN REG 1unit/0.01ml Soln (100units/ml) SC SCH ×4 (01:12→17:44)
--- NOTE | 2019-08-20 02:05 | NUR ---
ROUNDED: COVERING ASSIGNED RN FOR LUNCH. PATIENT RESTING IN BED, EYES CLOSED. EVEN AND UNLABORED BREATHING. NO PAIN BEHAVIORS IDENTIFIED. VSS. WILL ENDORSE CARE BACK TO ASSIGNED RN
[2019-08-20 04:40] LABS: Basophils # (auto) 0 10 ^3/uL (0-0.2); Basophils % (auto) 0.2 % (0.0-2.0); Eosinophils # (auto) 0 10 ^3/uL (0-0.8); Hematocrit 26.8 % (36.0-46.0); Hemoglobin 9.3 g/dL (12.2-16.2); Lymphocytes # (auto) 0.3 10 ^3/uL (0.4-5.4); Mean Corpuscular Hemoglobin 28.2 pg (28.0-32.0); Mean Corpuscular Hgb Conc. 34.8 g/dL (32.0-36.0); Mean Corpuscular Volume 81.1 fL (80.0-100.0); Monocytes # (auto) 0.1 10 ^3/uL (0-1.3); Monocytes % (auto) 0.6 % (0.0-12.0); Neutrophils # (auto) 14.2 10 ^3/uL (1.6-8.6); Neutrophils % (auto) 97.2 % (37.0-80.0); Nucleated Red Blood Cells % 0.7 %; Platelet Count (auto) 217 10^3/uL (140-450); White Blood Cell 14.6 10^3/uL (4.4-10.8)
[2019-08-20 04:53] LABS: Albumin 1.8 g/dL (3.4-5.0); BUN/Creatinine Ratio 16.6; Calcium 7.7 mg/dL (8.5-10.1); Potassium 3.5 mmol/L (3.5-5.1)
[2019-08-20 04:55] LABS: Bilirubin, Total 0.8 mg/dL (0.2-1.0); Total Protein 4.9 g/dL (6.4-8.2)
--- NOTE | 2019-08-20 05:00 | NUR ---
BED BATH GIVEN, LINENS CHANGED, PT TOLERATED WELL. SAFETY PRECAUTIONS IN PLACE. WILL CONTINUE TO MONITOR.
[2019-08-20 05:08] LABS: Red Cell Distribution Width 21.7 % (11.8-14.3)
[2019-08-20] MEDS: methylPREDNISolone SOD SUCC 40 MG/ML VL IV SCH ×3 (06:08→21:43)
[2019-08-20] MEDS: LEVOTHYROXINE SODIUM 25 MCG TAB PO SCH (06:08)
[2019-08-20] MEDS: MEROPENEM 500MG IVPB 50 ML IV SCH ×2 (07:36→20:00)
[2019-08-20] MEDS: SODIUM CHLORIDE 0.9% 1,000 ML IV SCH ×3 (07:40→20:30)
--- NOTE | 2019-08-20 08:08 | NUR ---
CHANGE IN CONDITION PATIENT REPOSITIONED ONTO BACK AND ORAL CARE DONE. PATIENTS BLOOD PRESSURE DROPPED DRASTICALLY AND MAP WAS 30. DR. PEREIRA INFORMED AND NEW ORDER TO TITRATE PHENYLEPHRINE OUTSIDE OF PROTOCOL IN ORDER TO KEEP MAP ABOVE 65. PATIENT HAVING RUNS OF PVC'S AND PAC'S, EKG DONE PER PROTOCOL. RT AT BEDSIDE BECAUSE O2 DESAT AND FIO2 WAS INCREASED TO 50%. SEE IV SPREAD SHEET AND BP SPREAD SHEET.
--- NOTE | 2019-08-20 09:00 | NUR ---
SEDATION VACATION SEDATION VACATION NOT DONE DUE TO PATIENTS CURRENT CONDITION.
--- NOTE | 2019-08-20 09:36 | NUR ---
PATIENT BLOOD PRESSURE HAS NOW STABILIZED. SEE IV SPREAD SHEET AND BLOOD PRESSURE SPREAD SHEET.
--- NOTE | 2019-08-20 10:00 | NUR ---
PATIENT NOT REPOSITIONED AT THIS TIME DUE TO BLOOD PRESSURE BEING UNSTABLE.
[2019-08-20] MEDS: AZITHROMYCIN 500MG/ 250ML 250 ML IV SCH (10:16)
--- NOTE | 2019-08-20 12:00 | NUR ---
PATIENT NOT REPOSITIONED AT THIS TIME DUE TO BLOOD PRESSURE BEING UNSTABLE.
--- NOTE | 2019-08-20 14:19 | NUR ---
REPORT Report received from Fiorella LI, care assumed.
--- NOTE | 2019-08-20 14:35 | NUR ---
RADIOLOGY CXR tech at bedside
--- NOTE | 2019-08-20 15:02 | NUR ---
PACEMAKER Pacemaker interrogation being performed at bedside. Tech adjust settings, pacing correctly.
--- NOTE | 2019-08-20 15:05 | NUR ---
MD VISIT: PULMONOLOGY aware of chest X-ray results. Orders obtained for Lasix one time dose.
[2019-08-20] MEDS ORDERED: FUROSEMIDE 100 MG/10ML VIAL IV ONE (15:15)
--- NOTE | 2019-08-20 16:36 | NUR ---
assessment Patient is a 84 year old female on a vent. I will call family or speak with patient once extubated. Addendum: 08/20/19 at 1636 by Marge ESCOTO Amended: Links added.
[2019-08-20] MEDS: PHENYLEPHRINE INJ 40 MG in SODIUM CHL 0.9% 250 ML IV SCH ×2 (16:53→17:54)
[2019-08-20] MEDS: fentaNYL Drip 2500mCg/250mlNS 250 ML IV SCH (17:55)
--- NOTE | 2019-08-20 19:23 | NUR ---
REPORT Report given to Heather LI, care endorsed.
[2019-08-21] VITALS (53 sets, daily range): BP systolic 70–147; BP diastolic 22–77
[2019-08-21] MEDS: MIDAZOLAM DRIP 50 mg/50mL 50 ML IV SCH ×3 (01:49→16:03)
[2019-08-21 04:14] LABS: Hematocrit 25.3 % (36.0-46.0); Hemoglobin 8.5 g/dL (12.2-16.2); Mean Corpuscular Hemoglobin 27.4 pg (28.0-32.0); Mean Corpuscular Hgb Conc. 33.7 g/dL (32.0-36.0); Mean Corpuscular Volume 81.1 fL (80.0-100.0); Platelet Count (auto) 190 10^3/uL (140-450); Red Blood Cells 3.12 10^6/uL (4.0-5.20); White Blood Cell 15.5 10^3/uL (4.4-10.8)
[2019-08-21 04:21] LABS: Anion Gap 14 (5-15); Calcium 7.2 mg/dL (8.5-10.1); Carbon Dioxide 21 mmol/L (21-32); Chloride 105 mmol/L (98-107); Glucose 180 mg/dL (74-106); Potassium 3.7 mmol/L (3.5-5.1); Sodium 140 mmol/L (136-145)
[2019-08-21 04:24] LABS: BUN/Creatinine Ratio 20.5; GFR African American 9 mL/min; GFR Non-African American 8 mL/min
[2019-08-21 04:28] LABS: Band Neutrophils % (manual) 0; Basophils % (manual) 0 (0.0-2.0); Blast Cells 0; Eosinophils % (manual) 0 (0-7); Monocytes % (manual) 0 (0-12); Myelocytes % 0; Promyelocytes % 0; Reactive Lymphocytes 0
[2019-08-21 04:31] LABS: Blood Urea Nitrogen 115 mg/dL (7-18)
[2019-08-21 04:35] LABS: Lymphocytes % (manual) 3 (10.0-50.0); Metamyelocytes % 1
[2019-08-21] MEDS: ACCU-CHEK COMFORT CURVE STRIP VI SCH ×5 (05:53→23:49)
[2019-08-21] MEDS: methylPREDNISolone SOD SUCC 40 MG/ML VL IV SCH ×2 (05:53→22:00)
[2019-08-21] MEDS: InsuLIN REG 1unit/0.01ml Soln (100units/ml) SC SCH ×5 (06:01→23:49)
[2019-08-21] MEDS: SODIUM CHLORIDE 0.9% 1,000 ML IV SCH ×2 (06:01→21:00)
[2019-08-21] MEDS: LEVOTHYROXINE SODIUM 25 MCG TAB PO SCH (06:53)
[2019-08-21] MEDS: MEROPENEM 500MG IVPB 50 ML IV SCH ×2 (08:25→20:00)
--- NOTE | 2019-08-21 09:00 | NUR ---
Sedation vacation held - hyperactive cough/gag noted. Addendum: 08/21/19 at 0131 by Marisela Bingham RN Amended: Links added.
--- NOTE | 2019-08-21 09:13 | NUR ---
[facility] contacted re: need for central line placement.
--- NOTE | 2019-08-21 09:37 | NUR ---
returns call - order received.
--- NOTE | 2019-08-21 09:45 | NUR ---
contacted re: need for PICC line - states not to place PICC line and that central line placement will be needed. notified re: need for central line placement per - order received.
--- NOTE | 2019-08-21 10:05 | NUR ---
Patient's niece Ping isela - updated on patient condition - verbalizes understanding. Obtained consent for central line placement. Niece spoke to global technical writer re: patient's verbalized wishes to family not to be resuscitated - will notify .
[2019-08-21] MEDS: AZITHROMYCIN 500MG/ 250ML 250 ML IV SCH (10:58)
[2019-08-21 12:09] LABS: INR 1.06 (0.9-1.15); Partial Thromboplastin Time 32.9 sec (23.64-32.05)
--- NOTE | 2019-08-21 12:20 | NUR ---
Spoke to patient's nephew at length re: patient's condition and resuscitation status - verbalizes understanding - advised both nephew and niece to speak with re: resuscitation status - both agreeable.
--- NOTE | 2019-08-21 12:45 | NUR ---
Patient's tracyece Ping phones to check patient condition - informed per abstract writer that it is unchanged since this am - verbalizes understanding.
--- NOTE | 2019-08-21 13:05 | NUR ---
Dr Rick visits and examines patient - orders received.
--- NOTE | 2019-08-21 13:30 | NUR ---
Dr Rick placed Left IJ TLC at bedside under [place]. guidance - patient matthias procedure well.
--- NOTE | 2019-08-21 15:00 | NUR ---
Dr Rick states CXR with correct placement if IJ TLC - able to be used for IV medications.
[2019-08-21] MEDS: PHENYLEPHRINE INJ 40 MG in SODIUM CHL 0.9% 250 ML IV SCH (17:47)
[2019-08-21] MEDS: PANTOPRAZOLE 40 MG/10 ML VIAL INJ IV SCH (18:17)
[2019-08-21] MEDS: ENOXAPARIN SOD 30 MG/0.3 ML SYRINGE SC SCH (18:17)
[2019-08-21] MEDS: DOPamine 1600MCG/ML D5W 250 ML IV SCH (21:48)
--- NOTE | 2019-08-21 22:42 | NUR ---
EKG DONE EKG SHOWING AFIB WITH RVR. 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
[2019-08-21] MEDS ORDERED: DIGOXIN (250MCG/ML) 2 ML AMPULE IV SCH (23:00)
[2019-08-21] MEDS ORDERED: DIGOXIN (250MCG/ML) 2 ML AMPULE ONE (23:11)
--- NOTE | 2019-08-21 23:16 | NUR ---
MEDICATION GIVEN DOPAMINE TURNED OFF AND PT GIVEN 0.250 MG DIGOXIN.
[2019-08-21] MEDS: fentaNYL Drip 2500mCg/250mlNS 250 ML IV SCH (23:49)
[2019-08-22] VITALS (93 sets, daily range): BP systolic 93–161; BP diastolic 38–84
--- NOTE | 2019-08-22 00:06 | NUR ---
PAGED REGARDING PT HR.
[2019-08-22] MEDS: MIDAZOLAM DRIP 50 mg/50mL 50 ML IV SCH (01:50)
[2019-08-22 04:34] LABS: Hematocrit 32.4 % (36.0-46.0); Hemoglobin 10.7 g/dL (12.2-16.2); Mean Corpuscular Hemoglobin 27.2 pg (28.0-32.0); Mean Corpuscular Hgb Conc. 32.8 g/dL (32.0-36.0); Mean Corpuscular Volume 82.9 fL (80.0-100.0); Platelet Count (auto) 228 10^3/uL (140-450); Red Blood Cells 3.91 10^6/uL (4.0-5.20); Red Cell Distribution Width 21.9 % (11.8-14.3)
[2019-08-22 04:36] LABS: Band Neutrophils % (manual) 0; Basophils % (manual) 0 (0.0-2.0); Blast Cells 0; Eosinophils % (manual) 0 (0-7); Metamyelocytes % 0; Myelocytes % 0; Promyelocytes % 0; Reactive Lymphocytes 0
[2019-08-22 04:39] LABS: Calcium 7.8 mg/dL (8.5-10.1); Potassium 4.1 mmol/L (3.5-5.1)
[2019-08-22 04:54] LABS: Lymphocytes % (manual) 2 (10.0-50.0); Monocytes % (manual) 4 (0-12)
[2019-08-22] MEDS: ACCU-CHEK COMFORT CURVE STRIP VI SCH ×3 (06:00→18:50)
[2019-08-22] MEDS: InsuLIN REG 1unit/0.01ml Soln (100units/ml) SC SCH ×3 (06:00→18:00)
[2019-08-22] MEDS: SODIUM CHLORIDE 0.9% 1,000 ML IV SCH ×3 (06:20→22:30)
[2019-08-22] MEDS: LEVOTHYROXINE SODIUM 25 MCG TAB PO SCH (07:00)
--- NOTE | 2019-08-22 07:50 | NUR ---
OPENING Report received from Deuce LI. Care initiated and initial assessment complete.
[2019-08-22] MEDS: MEROPENEM 500MG IVPB 50 ML IV SCH ×2 (08:00→20:05)
[2019-08-22] MEDS: PANTOPRAZOLE 40 MG/10 ML VIAL INJ IV SCH (09:18)
[2019-08-22] MEDS: AZITHROMYCIN 500MG/ 250ML 250 ML IV SCH (09:19)
[2019-08-22] MEDS: methylPREDNISolone SOD SUCC 40 MG/ML VL IV SCH (09:19)
--- NOTE | 2019-08-22 12:35 | NUR ---
BEDSIDE Dr. Rick bedside. states to decrease sedation and wean off so that CPAP trial can take place. Discussed patients BUN and Creatinine. Possible CPAP trial tomorrow 08/23/2019 if patient is awake and following commands.
[2019-08-22] MEDS: PHENYLEPHRINE INJ 40 MG in SODIUM CHL 0.9% 250 ML IV SCH (13:01)
--- NOTE | 2019-08-22 16:16 | NUR ---
PARTIAL LINEN CHANGE Patient tolerated well.
[2019-08-22] MEDS: ENOXAPARIN SOD 30 MG/0.3 ML SYRINGE SC SCH (18:00)
--- NOTE | 2019-08-22 19:30 | NUR ---
OPENING SHIFT RECEIVED REPORT FROM DAY SHIFT RN. ASSUMED CARE OF PATIENT. PATIENT INTUBATED AND OFF SEDATION IN BED WITH NO SIGNS OR SYMPTOMS OF SOB, PAIN OR DISTRESS. 02 SAT - 93%, TOLERATING VENTILATOR. LEFT INTERNAL JUGULAR TLC - CLEAN/DRY/INTACT. DAWKINS HUNG TO GRAVITY. REPOSITIONED FOR COMFORT. BED IN LOWEST POSITION, SIDE RAILS UP X2. VASOPRESSOR NORSYNEPHRINE DOUBLE CONCENTRATION - 10 MCG/MIN WILL CONTINUE TO MONITOR.
[2019-08-22] MEDS: DOPamine 1600MCG/ML D5W 250 ML IV SCH (20:45)
[2019-08-22] MEDS: fentaNYL Drip 2500mCg/250mlNS 250 ML IV SCH (23:34)
[2019-08-23] VITALS (88 sets, daily range): BP systolic 90–154; BP diastolic 35–85
[2019-08-23] MEDS: InsuLIN REG 1unit/0.01ml Soln (100units/ml) SC SCH ×4 (00:30→18:28)
[2019-08-23] MEDS: SODIUM CHLORIDE 0.9% 1,000 ML IV SCH ×2 (01:00→19:00)
--- NOTE | 2019-08-23 04:25 | NUR ---
MORNING CARE PERFORMED MORNING CARE WITH WASH CLOTHS TO THE FACE AND FAVIOLA AREA. ORAL AND DAWKINS CARE PERFORMED. REPOSITIONED FOR COMFORT. SKIN REASSESSED AT THIS TIME. BED IN LOWEST POSITION, SIDE RAILS UP X2. WILL CONTINUE TO MONITOR.
[2019-08-23] MEDS: PHENYLEPHRINE INJ 40 MG in SODIUM CHL 0.9% 250 ML IV SCH ×2 (05:16→21:56)
[2019-08-23] MEDS: ACCU-CHEK COMFORT CURVE STRIP VI SCH ×4 (06:15→18:24)
[2019-08-23] MEDS: LEVOTHYROXINE SODIUM 25 MCG TAB PO SCH (06:40)
--- NOTE | 2019-08-23 07:00 | NUR ---
END OF SHIFT REPORT GIVEN TO DAY SHIFT RN. CARE ENDORSED.
[2019-08-23] MEDS: MEROPENEM 500MG IVPB 50 ML IV SCH ×2 (07:49→20:00)
[2019-08-23 08:16] LABS: Albumin 1.4 g/dL (3.4-5.0); Calcium 7.6 mg/dL (8.5-10.1)
[2019-08-23 08:20] LABS: Bilirubin, Total 0.5 mg/dL (0.2-1.0); Total Protein 4.1 g/dL (6.4-8.2)
[2019-08-23 08:21] LABS: BUN/Creatinine Ratio 24.7
[2019-08-23] MEDS: AZITHROMYCIN 500MG/ 250ML 250 ML IV SCH (09:37)
[2019-08-23] MEDS: PANTOPRAZOLE 40 MG/10 ML VIAL INJ IV SCH (09:37)
[2019-08-23] MEDS: methylPREDNISolone SOD SUCC 40 MG/ML VL IV SCH (09:37)
--- NOTE | 2019-08-23 10:53 | NUR ---
BEDSIDE Dr. Rick bedside. Awaiting patient to wake up further.
--- NOTE | 2019-08-23 10:53 | NUR ---
SPOKE TO MD Spoke to Dr. Carrera. Patients BUN and Creatinine are trending back up. Dr. Rick present. Patient needs dialysis catheter at this time.
--- NOTE | 2019-08-23 11:00 | NUR ---
Respiratory note: NO CPAP TRIAL TODAY PER DR FRIAS. PT IS CURRENTLY NOT RESPONDING TO VERBAL COMMANDS OR TACTILE STIMULATION. PT SCHEDULED FOR DIALYSIS.
--- NOTE | 2019-08-23 11:08 | NUR ---
CALL FAMILY Called [facility]K phone number x3 with no answer, will try again later to obtain consents.
[2019-08-23] MEDS ORDERED: levoFLOXacin 750MG 150 ML IV ONE (14:15)
--- NOTE | 2019-08-23 15:28 | NUR ---
assessment Patient is a 84 year old male who is on a vent in ICU. Per patients shelby Feng prior to admission patient lived home with her and was independent. Per Ping patient has home 02 and no other DME. Patients PCP is Dr Milton. Patient has [email or web address]. Per Ping patient was having SOB and she called 911. I informed Ping that patients post discharge needs to be determined after extubation and prior to discharge. Ping verbalized understanding. Addendum: 08/23/19 at 1530 by Marge ESCOTO Amended: Links added.
--- NOTE | 2019-08-23 15:51 | NUR ---
NUTRITION FOLLOWUP NOTES Pt wt is 66.8 kg today. Pt was not on floor d/t medical procedure when rounded this morning. Noted pt failed CPAP trial, sedated, and placed back on vent. Pt in no noted distress per RN doc. Pt has been NPO since 08/18/19. Please refer to nutrition support recommendations noted below for EN support. Will continue to monitor and followup prn Est. Energy Needs: 9028-9583 kcal (25-30 kcal/kg BW). Est. Protein Needs: 59-76 gms/day (1.0-1.3 gms/kg BW). Will continue to monitor pertinent labs and reassess nutrient need prn LABS: BUN 141 H, CR 5.7 H, CL 108 H, GLUC 145 H, CA 7.6 L, AST 12 L, ALT 11 L, TOT PRO 4.1 L, ALB 1.4 L GI: Last BM noted on 08/17/19 per RN doc BS: 13 moderate risk, Please refer to wound assessment report for full details. PES: Problem 1) Altered nutrition related lab values r/t current medical condition aeb hypoproteinemia, hypocalcemia, hyperglycemia, elevated RFTs 2) Inadequate energy intake r/t current energy and protein needs aeb NPO, intubated, sedated status Comments Will continue to monitor NPO status, skin status, pertinent labs and weight trend. F/u in 2 to 3 days. Recommendations: 1) If still NPO in 48 hours, consider initiating EN support of Glucerna 1.2 Gus @ 50ml/hr as tolerated. 2) Suggest Prostat 1 pkt BID. 3) Advance gradually to oral Renal Specific 2gNa diet when medically appropriate. 4) Continue current plan of care.
[2019-08-23] MEDS: LINEZOLID 600MG/300ML 300 ML IV SCH (16:08)
[2019-08-23] MEDS: ENOXAPARIN SOD 30 MG/0.3 ML SYRINGE SC SCH (18:25)
[2019-08-23] MEDS: DOPamine 1600MCG/ML D5W 250 ML IV SCH (20:45)
[2019-08-23] MEDS: MIDAZOLAM DRIP 50 mg/50mL 50 ML IV SCH (23:34)
[2019-08-23] MEDS: fentaNYL Drip 2500mCg/250mlNS 250 ML IV SCH (23:34)
[2019-08-24] VITALS (98 sets, daily range): BP systolic 119–178; BP diastolic 50–76
[2019-08-24] MEDS: InsuLIN REG 1unit/0.01ml Soln (100units/ml) SC SCH ×4 (00:16→18:22)
[2019-08-24] MEDS: LINEZOLID 600MG/300ML 300 ML IV SCH ×2 (03:00→14:51)
[2019-08-24 03:44] LABS: Hematocrit 30.5 % (36.0-46.0); Hemoglobin 9.9 g/dL (12.2-16.2); Mean Corpuscular Hemoglobin 27.1 pg (28.0-32.0); Mean Corpuscular Hgb Conc. 32.4 g/dL (32.0-36.0); Mean Corpuscular Volume 83.7 fL (80.0-100.0); Platelet Count (auto) 212 10^3/uL (140-450); Red Blood Cells 3.65 10^6/uL (4.0-5.20); White Blood Cell 20.8 10^3/uL (4.4-10.8)
[2019-08-24] MEDS: SODIUM CHLORIDE 0.9% 1,000 ML IV SCH ×2 (04:30→14:12)
[2019-08-24 04:39] LABS: Band Neutrophils % (manual) 0; Basophils % (manual) 0 (0.0-2.0); Blast Cells 0; Eosinophils % (manual) 0 (0-7); Metamyelocytes % 0; Myelocytes % 0; Promyelocytes % 0; Reactive Lymphocytes 0
[2019-08-24 05:56] LABS: Lymphocytes % (manual) 3 (10.0-50.0); Monocytes % (manual) 1 (0-12)
[2019-08-24] MEDS: ACCU-CHEK COMFORT CURVE STRIP VI SCH ×4 (06:00→18:22)
[2019-08-24] MEDS: LEVOTHYROXINE SODIUM 25 MCG TAB PO SCH (06:36)
[2019-08-24 07:33] LABS: Albumin 1.5 g/dL (3.4-5.0); Calcium 7.9 mg/dL (8.5-10.1); Potassium 4.3 mmol/L (3.5-5.1)
--- NOTE | 2019-08-24 07:40 | NUR ---
OPENING Report received from Promise LI. Care initiated and initial assessment complete.
[2019-08-24 07:44] LABS: BUN/Creatinine Ratio 29.1; Bilirubin, Total 0.5 mg/dL (0.2-1.0); Total Protein 4.3 g/dL (6.4-8.2)
[2019-08-24] MEDS: MEROPENEM 500MG IVPB 50 ML IV SCH ×2 (08:01→20:39)
[2019-08-24] MEDS ORDERED: SODIUM CHL 0.9% 1000 ML BAG XX ONE (09:00)
--- NOTE | 2019-08-24 09:00 | NUR ---
BEDSIDE Dr. Carrera bedside. Updated on wait to place dialysis cath. d/t family not answering phone calls.
--- NOTE | 2019-08-24 09:45 | NUR ---
MARILU Miller, awaiting return phone call. Addendum: 08/24/19 at 1852 by Mary Quinteros RN RN WRONG PATIENT
[2019-08-24 09:52] LABS: % Iron Saturation 12.9 % (15-50)
--- NOTE | 2019-08-24 10:00 | NUR ---
SPOKE TO FAMILY Consent received to insert dialysis cath. Second nurse confirmed.
[2019-08-24] MEDS: PANTOPRAZOLE 40 MG/10 ML VIAL INJ IV SCH (10:14)
[2019-08-24] MEDS: methylPREDNISolone SOD SUCC 40 MG/ML VL IV SCH (10:14)
[2019-08-24] MEDS: levoFLOXacin 500MG 100 ML IV SCH (10:14)
--- NOTE | 2019-08-24 11:50 | NUR ---
CALLED Called hospitalist office to speak with Dr. Miller about CT results. No answer. Addendum: 08/24/19 at 1850 by Mary Quinteros RN RN WRONG PATIENT
[2019-08-24] MEDS: PHENYLEPHRINE INJ 40 MG in SODIUM CHL 0.9% 250 ML IV SCH (14:12)
[2019-08-24] MEDS ORDERED: MIDAZOLAM HCL 1MG/1ML-2 ML VIAL ONE (17:00)
[2019-08-24] MEDS ORDERED: MIDAZOLAM HCL 1MG/1ML-2 ML VIAL IV ONE (17:00)
--- NOTE | 2019-08-24 17:00 | NUR ---
BEDSIDE Dr. Prabhjot obregon. Prepping for dialysis cath insertion.
[2019-08-24] MEDS ORDERED: HEPARIN 1,000 UNITS/ml 1ML VIAL IV ONE (17:45)
--- NOTE | 2019-08-24 18:00 | NUR ---
DIALYSIS CATH PLACED Verified with CXR.
[2019-08-24] MEDS ORDERED: HEPARIN 1,000 UNITS/ml 1ML VIAL ONE (18:13)
[2019-08-24] MEDS: ENOXAPARIN SOD 30 MG/0.3 ML SYRINGE SC SCH (18:22)
--- NOTE | 2019-08-24 19:30 | NUR ---
Opening Shift Note Received pt on mechanical ventilator. Full assessment done see interventions. Bed locked in lowest position. All alarms on and audible. VSS
[2019-08-24] MEDS: DOPamine 1600MCG/ML D5W 250 ML IV SCH (20:45)
[2019-08-24] MEDS ORDERED: EPOETIN ALFA 10,000 UNIT/1 ML VIAL SC ONE (21:00)
[2019-08-24] MEDS: fentaNYL Drip 2500mCg/250mlNS 250 ML IV SCH (23:34)
[2019-08-25] VITALS (82 sets, daily range): BP systolic 92–188; BP diastolic 42–88
[2019-08-25] MEDS: SODIUM CHLORIDE 0.9% 1,000 ML IV SCH ×3 (00:30→20:30)
[2019-08-25] MEDS: MIDAZOLAM DRIP 50 mg/50mL 50 ML IV SCH (01:32)
[2019-08-25] MEDS: LINEZOLID 600MG/300ML 300 ML IV SCH ×2 (03:00→15:42)
--- NOTE | 2019-08-25 03:00 | NUR ---
Paged MD Message left for Dr. Carrera regarding high blood pressure.
[2019-08-25] MEDS: fentaNYL Drip 2500mCg/250mlNS 250 ML IV SCH (03:50)
[2019-08-25 04:20] LABS: Hematocrit 31.5 % (36.0-46.0); Hemoglobin 10.6 g/dL (12.2-16.2); Mean Corpuscular Hemoglobin 27.7 pg (28.0-32.0); Mean Corpuscular Hgb Conc. 33.5 g/dL (32.0-36.0); Mean Corpuscular Volume 82.6 fL (80.0-100.0); Platelet Count (auto) 258 10^3/uL (140-450); Red Blood Cells 3.82 10^6/uL (4.0-5.20); White Blood Cell 17.8 10^3/uL (4.4-10.8)
[2019-08-25 04:37] LABS: Red Cell Distribution Width 21.2 % (11.8-14.3)
[2019-08-25 04:38] LABS: Band Neutrophils % (manual) 0; Basophils % (manual) 0 (0.0-2.0); Blast Cells 0; Eosinophils % (manual) 0 (0-7); Metamyelocytes % 0; Myelocytes % 0; Promyelocytes % 0; Reactive Lymphocytes 0
[2019-08-25 04:39] LABS: Potassium 3.7 mmol/L (3.5-5.1)
[2019-08-25 04:45] LABS: BUN/Creatinine Ratio 30.5
[2019-08-25] MEDS: ACCU-CHEK COMFORT CURVE STRIP VI SCH ×4 (06:26→18:00)
[2019-08-25] MEDS: InsuLIN REG 1unit/0.01ml Soln (100units/ml) SC SCH ×4 (06:26→17:45)
[2019-08-25] MEDS: LEVOTHYROXINE SODIUM 25 MCG TAB PO SCH (06:26)
--- NOTE | 2019-08-25 07:10 | NUR ---
DIALYSIS NURSE BEDSIDE Faraz LI bedside.
[2019-08-25] MEDS: PHENYLEPHRINE INJ 40 MG in SODIUM CHL 0.9% 250 ML IV SCH ×2 (07:16→23:56)
--- NOTE | 2019-08-25 07:36 | NUR ---
DIALYSIS STARTED Dialysis started by dialysis nurse Faraz.
[2019-08-25] MEDS: MEROPENEM 500MG IVPB 50 ML IV SCH ×2 (08:00→20:00)
[2019-08-25 08:13] LABS: Lymphocytes % (manual) 1 (10.0-50.0); Monocytes % (manual) 4 (0-12)
[2019-08-25] MEDS ORDERED: GLYCOPYRROLATE 0.2 MG/ML 1ML VIAL ONE (09:18)
[2019-08-25] MEDS ORDERED: MIDAZOLAM HCL 5 MG/ML-1ML VIAL ONE (09:18)
[2019-08-25] MEDS ORDERED: SODIUM CHLORIDE LOCK 10 ML ONE (09:18)
[2019-08-25] MEDS ORDERED: LIDOCAINE 2%HCL (LOCAL ANESTH.) INJ 20ML MDV ONE (09:18)
[2019-08-25] MEDS ORDERED: EPINEPHrine HCL 1 MG/1 ML AMP ONE (09:18)
[2019-08-25] MEDS ORDERED: LIDOCAINE HCL 2% TOP JELLY 5ML TOP ONE (09:19)
[2019-08-25] MEDS ORDERED: fentaNYL CITRATE 100 MCG/2 ML VL ONE (09:19)
[2019-08-25] MEDS: methylPREDNISolone SOD SUCC 40 MG/ML VL IV SCH (10:00)
[2019-08-25] MEDS: PANTOPRAZOLE 40 MG/10 ML VIAL INJ IV SCH (10:00)
[2019-08-25] MEDS ORDERED: ACETYLCYSTEINE 10 %(100MG/ML) SOL 10ML ONE (11:22)
[2019-08-25 11:26] LABS: INR 1.13 (0.9-1.15); Partial Thromboplastin Time 49.1 sec (23.64-32.05)
--- NOTE | 2019-08-25 11:33 | NUR ---
BEDSIDE Dr. Rick bedside for procedure.
[2019-08-25] MEDS ORDERED: hydrALAZINE HCL 20 MG/ML VL ONE (11:45)
--- NOTE | 2019-08-25 11:52 | NUR ---
BRONCH COMPLETE See MDs note.
--- NOTE | 2019-08-25 13:00 | NUR ---
BEDSIDE Dr. Rick bedside with US assessing fluid in right lung.
[2019-08-25] MEDS ORDERED: IPRATROPIUM BROM 0.5 MG/2.5ML INH SOL ONE (13:20)
[2019-08-25] MEDS ORDERED: ALBUTEROL SULF 2.5 MG/0.5ML(0.5%) NEB SOLN ONE (13:20)
[2019-08-25] MEDS ORDERED: ACETYLCYSTEINE 10 %(100MG/ML) SOL 4ML ONE (13:20)
--- NOTE | 2019-08-25 13:38 | NUR ---
AWAITING RESTOCK OF THORA TRAYS
[2019-08-25] MEDS ORDERED: LIDOCAINE 1% (LOCAL ANESTH.) PF 5ml SDV ONE (13:47)
[2019-08-25] MEDS ORDERED: ACETYLCYSTEINE 10 %(100MG/ML) SOL 4ML HHN SCH (14:00)
--- NOTE | 2019-08-25 14:00 | NUR ---
BEDSIDE Dr. Rick bedside completing thoracentesis.
--- NOTE | 2019-08-25 16:12 | NUR ---
WOUND CARE NOTE: Wound care in to see patient for skin integrity monitoring. Patient continue resting in ICU bed in Rm. 105. Patient is intubated, sedated and mechanically ventilated. Patient appears to be in no pain using [place] Arrieta Faces Pain Scale. Her Gunnar score is 13. Skin assessment done with the assistance of patient's nurse, GUILLERMO Llanos. No open/draining wound noted, no pressure injury noted. Patient tolerated well. Repositioned for comfort facing her Rt side, redistributed pressure points with pillows. GUILLERMO Llanos at bedside. RECOMMENDATION: Continuation of all wound care orders prescribed by MD, continue with skin/wound plan of care, continue monitoring by wound care while patient is mechanically ventilated. Addendum: 08/25/19 at 1710 by Karla Luu RN Amended: Links added.
[2019-08-25] MEDS: ENOXAPARIN SOD 30 MG/0.3 ML SYRINGE SC SCH (18:00)
--- NOTE | 2019-08-25 18:00 | NUR ---
Respiratory note: ATTEMPTED TO CONTACT DR. FRIAS FOR ORDER CLARIFICATION FOR MUCOMYST FREQUENCY AND DOSAGE. AWAITING CLARIFICATION. MUCOMYST 10% Q4 HELD AT THIS TIME. WILL TRY TO CONTACT AGAIN FOR DOSAGE AND FREQUENCY CLARIFICATION. WILL CONTINUE TO MONITOR.
[2019-08-25] MEDS: IPRATROPIUM BROM 0.5 MG/2.5ML INH SOL NEB SCH ×2 (18:54→22:40)
[2019-08-25] MEDS: ACETYLCYSTEINE 10 %(100MG/ML) SOL 4ML IN SCH ×2 (18:54→22:40)
[2019-08-25] MEDS: ALBUTEROL SULF 2.5 MG/0.5ML(0.5%) NEB SOLN HHN SCH ×2 (18:54→22:40)
[2019-08-25] MEDS: DOPamine 1600MCG/ML D5W 250 ML IV SCH (20:45)
[2019-08-25] MEDS ORDERED: ACETYLCYSTEINE 10 %(100MG/ML) SOL 4ML IN SCH (22:00)
[2019-08-25] MEDS: ACETYLCYSTEINE 10 %(100MG/ML) SOL 4ML HHN SCH (22:40)
[2019-08-26] VITALS (100 sets, daily range): BP systolic 57–161; BP diastolic 26–87
--- NOTE | 2019-08-26 | NUR ---
TRANSFERRED PT TO ANOTHER ROOM IN ICU, RM 110, WITHOUT INCIDENCE. RT BAGGING PT AND ON PORTABLE PATIENT SERVICE REP. PT TOLERATED WELL.
[2019-08-26] MEDS: ACCU-CHEK COMFORT CURVE STRIP VI SCH ×4 (00:07→17:59)
[2019-08-26] MEDS: ALBUTEROL SULF 2.5 MG/0.5ML(0.5%) NEB SOLN HHN SCH ×6 (02:22→22:24)
[2019-08-26] MEDS: IPRATROPIUM BROM 0.5 MG/2.5ML INH SOL NEB SCH ×6 (02:22→22:23)
[2019-08-26] MEDS: LINEZOLID 600MG/300ML 300 ML IV SCH ×2 (03:00→15:00)
[2019-08-26 04:00] LABS: Basophils # (auto) 0 10 ^3/uL (0-0.2); Basophils % (auto) 0.1 % (0.0-2.0); Eosinophils # (auto) 0 10 ^3/uL (0-0.8); Eosinophils % (auto) 0.1 % (0.0-7.0); Hemoglobin 10.5 g/dL (12.2-16.2); Lymphocytes # (auto) 0.3 10 ^3/uL (0.4-5.4); Lymphocytes % (auto) 1.7 % (10.0-50.0); Mean Corpuscular Hemoglobin 26.9 pg (28.0-32.0); Monocytes # (auto) 0.4 10 ^3/uL (0-1.3)
--- NOTE | 2019-08-26 04:00 | NUR ---
PT AWAKE, WITH EYES OPEN BUT NOT FOLLOWING COMMANDS. PT RESTLESS AND AT TIMES REACHES FOR ET TUBE. HR IN 150'S. FENTANYL GTT INCREASED. SEE IV SPREADSHEET
[2019-08-26 04:03] LABS: Hematocrit 32.2 % (36.0-46.0); Mean Corpuscular Hgb Conc. 32.6 g/dL (32.0-36.0); Mean Corpuscular Volume 82.4 fL (80.0-100.0); Monocytes % (auto) 2.2 % (0.0-12.0); Neutrophils % (auto) 95.9 % (37.0-80.0); Platelet Count (auto) 295 10^3/uL (140-450); Red Blood Cells 3.91 10^6/uL (4.0-5.20); White Blood Cell 18.8 10^3/uL (4.4-10.8)
[2019-08-26 04:14] LABS: Potassium 3.7 mmol/L (3.5-5.1)
[2019-08-26 04:17] LABS: Red Cell Distribution Width 21.7 % (11.8-14.3)
[2019-08-26 04:18] LABS: BUN/Creatinine Ratio 28.7; Calcium 7.5 mg/dL (8.5-10.1)
--- NOTE | 2019-08-26 05:10 | NUR ---
CARES PT GIVEN COMPLETE BED BATH AND LINEN CHANGE AT THIS TIME. PT GRIMACES TO STIMULATION AND HR INCREASES. ONGOING SKIN ASSESSMENT DONE; NO CHANGES NOTED.
[2019-08-26] MEDS: InsuLIN REG 1unit/0.01ml Soln (100units/ml) SC SCH ×4 (05:42→18:17)
[2019-08-26] MEDS: ACETYLCYSTEINE 10 %(100MG/ML) SOL 4ML HHN SCH ×2 (05:50→22:24)
[2019-08-26] MEDS: LEVOTHYROXINE SODIUM 25 MCG TAB PO SCH (06:28)
--- NOTE | 2019-08-26 06:56 | NUR ---
LEFT MESSAGE WITH KELLI REGARDING PT'S HIGH HR WITH A FIB. AWAITING CALL BACK.
[2019-08-26] MEDS: SODIUM CHLORIDE 0.9% 1,000 ML IV SCH ×2 (06:58→16:48)
--- NOTE | 2019-08-26 07:50 | NUR ---
OPENING Report received from Tamela LI. Care initiated and initial assessment complete.
--- NOTE | 2019-08-26 10:05 | NUR ---
MARILU ILNARES Called Dr. Milton for patients heart rate. Patient AFIB. Amiodarone protocol needed.
[2019-08-26 10:12] LABS: Hepatitis A Ab IgM Negative; Hepatitis B Core IgM Negative; Hepatitis B Surface Antigen Negative (Negative); Hepatitis C Antibody Negative (Negative)
[2019-08-26] MEDS ORDERED: AMIODARONE HCL 150 MG in D5W 5% 100 ML IV ONE (10:30)
--- NOTE | 2019-08-26 10:36 | NUR ---
DIALYSIS COMPLETE 570ML REMOVED
[2019-08-26] MEDS ORDERED: AMIODARONE HCL 900 MG in DEXTROSE 500 ML IV SCH (10:40)
--- NOTE | 2019-08-26 10:50 | NUR ---
BEDSIDE Dr. Carrera bedside.
--- NOTE | 2019-08-26 10:53 | NUR ---
AMIODARONE STARTED BOLUS STARTED
--- NOTE | 2019-08-26 10:55 | NUR ---
BEDSIDE Dr. Carrera bedside in regards to patients heart rate. Informed MD Mora paged Dr. Milton with no response. New orders received and verified.
--- NOTE | 2019-08-26 11:03 | NUR ---
AMIODARONE AMIO 1MG MAINTENANCE DOSE RUNNING
[2019-08-26] MEDS: MIDAZOLAM DRIP 50 mg/50mL 50 ML IV SCH (11:19)
--- NOTE | 2019-08-26 12:10 | NUR ---
BEDSIDE Dr. Milton bedside. wants Toprol XL ordered. Clarified that this order cannot be crushed for NG, stated patient requires med and to crush it for NG use.
[2019-08-26] MEDS: PANTOPRAZOLE 40 MG/10 ML VIAL INJ IV SCH (12:22)
[2019-08-26] MEDS: levoFLOXacin 500MG 100 ML IV SCH (12:22)
[2019-08-26] MEDS: MEROPENEM 500MG IVPB 50 ML IV SCH ×2 (12:22→20:28)
[2019-08-26] MEDS: METOPROLOL SUCCINATE XL 50 MG TAB PO SCH (14:30)
[2019-08-26] MEDS: PHENYLEPHRINE INJ 40 MG in SODIUM CHL 0.9% 250 ML IV SCH (16:36)
[2019-08-26] MEDS: AMIODARONE HCL 900 MG in DEXTROSE 500 ML IV SCH (16:47)
[2019-08-26] MEDS: PROPOFOL 100 ML IV SCH (16:48)
--- NOTE | 2019-08-26 17:07 | NUR ---
BEDSIDE Dr. Rick is at the bedside assessing patients lung with the US.
[2019-08-26] MEDS: ENOXAPARIN SOD 30 MG/0.3 ML SYRINGE SC SCH (17:26)
--- NOTE | 2019-08-26 17:30 | NUR ---
BEDSIDE DOING PROCEDURE Dr. Rick at the bedside completing thoracentesis.
--- NOTE | 2019-08-26 17:40 | NUR ---
THORACENTESIS COMPLETE Patient had dark oleary fluid, 250cc out of left lung. Sent to lab for cytology.
--- NOTE | 2019-08-26 18:20 | NUR ---
PARTIAL LINEN CHANGE Completed partial linen change, patient tolerated well.
--- NOTE | 2019-08-26 19:30 | NUR ---
Opening Shift Note Report received from day shift RN. Received pt on mechanical ventilator on propofol and fentanyl gtt. Amiodarone gtt infusing per protocol. HR A-FIB IN 80's. VSS. Full assessment done see interventions. Rosa catheter draining to gravity secured below bladder, free of kinks. Bed locked in lowest position. All alarms on and audible.
[2019-08-26] MEDS: DOPamine 1600MCG/ML D5W 250 ML IV SCH (20:45)
[2019-08-26] MEDS ORDERED: EPOETIN ALFA 10,000 UNIT/1 ML VIAL IV ONE (21:00)
[2019-08-26] MEDS: fentaNYL Drip 2500mCg/250mlNS 250 ML IV SCH (23:34)
[2019-08-27] VITALS (85 sets, daily range): BP systolic 78–182; BP diastolic 37–95
[2019-08-27] MEDS: IPRATROPIUM BROM 0.5 MG/2.5ML INH SOL NEB SCH ×5 (02:27→18:11)
[2019-08-27] MEDS: ALBUTEROL SULF 2.5 MG/0.5ML(0.5%) NEB SOLN HHN SCH ×5 (02:27→18:11)
[2019-08-27] MEDS: SODIUM CHLORIDE 0.9% 1,000 ML IV SCH ×3 (02:30→22:30)
[2019-08-27] MEDS: LINEZOLID 600MG/300ML 300 ML IV SCH ×2 (03:00→14:51)
[2019-08-27 04:16] LABS: Basophils # (auto) 0 10 ^3/uL (0-0.2); Basophils % (auto) 0.1 % (0.0-2.0); Eosinophils # (auto) 0 10 ^3/uL (0-0.8); Hematocrit 28.2 % (36.0-46.0); Hemoglobin 9.4 g/dL (12.2-16.2); Lymphocytes # (auto) 0.2 10 ^3/uL (0.4-5.4); Lymphocytes % (auto) 1.1 % (10.0-50.0); Mean Corpuscular Hemoglobin 27.7 pg (28.0-32.0); Mean Corpuscular Hgb Conc. 33.2 g/dL (32.0-36.0); Mean Corpuscular Volume 83.4 fL (80.0-100.0); Monocytes # (auto) 0.4 10 ^3/uL (0-1.3); Monocytes % (auto) 2.7 % (0.0-12.0); Neutrophils # (auto) 14.4 10 ^3/uL (1.6-8.6); Neutrophils % (auto) 96.1 % (37.0-80.0); Platelet Count (auto) 230 10^3/uL (140-450); Red Blood Cells 3.38 10^6/uL (4.0-5.20)
[2019-08-27 04:19] LABS: Red Cell Distribution Width 21.5 % (11.8-14.3)
[2019-08-27 04:29] LABS: Albumin 1.2 g/dL (3.4-5.0); Calcium 7.3 mg/dL (8.5-10.1); Magnesium 2.1 mg/dL (1.6-2.6); Potassium 3.6 mmol/L (3.5-5.1)
--- NOTE | 2019-08-27 04:30 | NUR ---
CARES Pt cleansed and partial linen change at this time. Oral care rendered. pt tolerated well.
[2019-08-27 04:34] LABS: BUN/Creatinine Ratio 24.1; Bilirubin, Total 0.7 mg/dL (0.2-1.0); Total Protein 3.9 g/dL (6.4-8.2)
[2019-08-27] MEDS: InsuLIN REG 1unit/0.01ml Soln (100units/ml) SC SCH ×5 (06:00→23:55)
[2019-08-27] MEDS: ACCU-CHEK COMFORT CURVE STRIP VI SCH ×5 (06:00→23:55)
[2019-08-27] MEDS: ACETYLCYSTEINE 10 %(100MG/ML) SOL 4ML HHN SCH (06:30)
[2019-08-27] MEDS: LEVOTHYROXINE SODIUM 25 MCG TAB PO SCH (07:00)
--- NOTE | 2019-08-27 07:30 | NUR ---
Report given to day shift RN to assume care.
[2019-08-27] MEDS: MEROPENEM 500MG IVPB 50 ML IV SCH ×2 (08:10→19:45)
[2019-08-27] MEDS: PHENYLEPHRINE INJ 40 MG in SODIUM CHL 0.9% 250 ML IV SCH (09:16)
[2019-08-27] MEDS: PANTOPRAZOLE 40 MG/10 ML VIAL INJ IV SCH (09:31)
[2019-08-27] MEDS: METOPROLOL SUCCINATE XL 50 MG TAB PO SCH (09:32)
--- NOTE | 2019-08-27 10:10 | NUR ---
Respiratory note: PT IS AWAKE, ALERT, AND ABLE TO FOLLOW COMMANDS. PLACED PT ON CPAP TRIAL WITH A PS OF 8, AND PEEP +5. PT TOLERATING VENT CHANGE WELL. SPO2 97% ON 30% FIO2, HR 93, RR 16, BS CLEAR BILATERALLY. RN MADE AWARE. WILL CONTINUE TO MONITOR PT.
--- NOTE | 2019-08-27 10:43 | NUR ---
DR. FRIAS HERE TO SEE PATIENT. SEE MD NOTES AND EMR FOR ANY NEW ORDERS.
--- NOTE | 2019-08-27 11:01 | NUR ---
DR. BERMUDEZ HERE TO SEE PATIENT. SEE MD NOTES AND EMR FOR ANY NEW ORDERS.
[2019-08-27] MEDS: AMIODARONE HCL 900 MG in DEXTROSE 500 ML IV SCH (11:59)
--- NOTE | 2019-08-27 12:09 | NUR ---
BLOOD SUGAR CHECKED AND WAS 135. PATIENT IS CURRENTLY NPO AND ON CPAP TRIAL WITH POTENTIAL OF HAVING ET TUBE REMOVED. REGULAR INSULIN NOT GIVEN AT THIS TIME DUE TO FACT PATIENT IS CURRENTLY NPO. MD PEREIRA MADE AWARE.
--- NOTE | 2019-08-27 13:00 | NUR ---
DR. PEREIRA HERE TO SEE PATIENT. SEE MD NOTES AND EMR FOR ANY NEW ORDERS. DR. PEREIRA HAS BEEN MADE AWARE THAT PATIENTS BLOOD PRESSURE HAS BEEN ELEVATED AND ABOVE 150'S. DR. PEREIRA STATED NO NEW ORDERS AT THIS TIME.
--- NOTE | 2019-08-27 13:10 | NUR ---
DR FRIAS READ BACK BLOOD GAS, AND WEANING PARAMETERS RSBI 38, NIF -27.5, VC 1056, LEAK 559. ORDERS GIVEN TO EXTUBATE PER DR FRIAS ORDERS.
--- NOTE | 2019-08-27 14:03 | NUR ---
FAMILY UPDATE UPDATED NIECE ASTON ON PATIENTS POC, CPAP TRIAL AND EXTUBATION. DISCUSSED NEED FOR PATIENT TO NOT TALK AT THIS TIME. ASTON WILL CALL BACK IN A LITTLE BIT.
--- NOTE | 2019-08-27 15:20 | NUR ---
Respiratory note: PT EXTUBATED WITHOUT INCIDENT, AND PLACED ON COOL AEROSOL VIA MASK. SPO2 96% ON 30% FIO2, HR 101, RR 14, BS CLEAR BILATERALLY. RN AT BEDSIDE. WILL CONTINUE TO MONITOR PT.
[2019-08-27] MEDS: PROPOFOL 100 ML IV SCH (15:55)
[2019-08-27] MEDS: ENOXAPARIN SOD 30 MG/0.3 ML SYRINGE SC SCH (17:44)
--- NOTE | 2019-08-27 21:55 | NUR ---
PERFECTO ADEN HELD DUE TO HR [id number], RN NOTIFIED
--- NOTE | 2019-08-27 22:46 | NUR ---
REPORT GIVEN TO ATIYA TO ASSUME CARE IN [facility].
--- NOTE | 2019-08-27 23:03 | NUR ---
[facility] downgrade patient trans to [facility] KUNAL SANTIAGO transferred to [facility] via bed on automotive technology instructor and portable 02 via nasal cannula @ 4L/min. All patient medications and personal belongings transferred with patient to receiving floor. Patient care transferred to Florentino RN to assume care. No distress at the time of departure. NOTE:
[2019-08-28] VITALS (41 sets, daily range): BP systolic 90–169; BP diastolic 48–98
[2019-08-28] MEDS ORDERED: hydrALAZINE HCL 20 MG/ML VL IV SCH
[2019-08-28] MEDS ORDERED: hydrALAZINE HCL 20 MG/ML VL IV PRN (00:30)
[2019-08-28] MEDS: hydrALAZINE HCL 20 MG/ML VL IV PRN ×2 (00:54→12:24)
[2019-08-28] MEDS: LEVOTHYROXINE SODIUM 25 MCG TAB PO SCH (01:06)
--- NOTE | 2019-08-28 01:26 | NUR ---
spoke to hospitalist regarding afib rvr, he recommended to put amiodarone drip back at continuous rate of 1mg. Will follow orders per hospital policy and protocol.
[2019-08-28] MEDS: IPRATROPIUM BROM 0.5 MG/2.5ML INH SOL NEB SCH ×6 (01:51→22:47)
[2019-08-28] MEDS ORDERED: LORazepam 2MG/ML-1ML VIAL ONE (01:55)
[2019-08-28] MEDS ORDERED: LORazepam 2MG/ML-1ML VIAL IV ONE (02:00)
[2019-08-28] MEDS: LINEZOLID 600MG/300ML 300 ML IV SCH ×2 (02:35→15:12)
[2019-08-28] MEDS: ACCU-CHEK COMFORT CURVE STRIP VI SCH ×3 (04:25→18:00)
[2019-08-28] MEDS: InsuLIN REG 1unit/0.01ml Soln (100units/ml) SC SCH ×3 (04:30→18:00)
[2019-08-28 06:05] LABS: Albumin 1.6 g/dL (3.4-5.0); Calcium 7.6 mg/dL (8.5-10.1); Potassium 3.1 mmol/L (3.5-5.1)
[2019-08-28 06:06] LABS: Basophils # (auto) 0 10 ^3/uL (0-0.2); Basophils % (auto) 0.1 % (0.0-2.0); Eosinophils # (auto) 0 10 ^3/uL (0-0.8); Hematocrit 33.8 % (36.0-46.0); Lymphocytes # (auto) 0.2 10 ^3/uL (0.4-5.4); Lymphocytes % (auto) 0.6 % (10.0-50.0); Mean Corpuscular Hemoglobin 27.2 pg (28.0-32.0); Mean Corpuscular Hgb Conc. 32.6 g/dL (32.0-36.0); Mean Corpuscular Volume 83.7 fL (80.0-100.0); Monocytes # (auto) 0.8 10 ^3/uL (0-1.3); Neutrophils # (auto) 25.9 10 ^3/uL (1.6-8.6); Neutrophils % (auto) 96.3 % (37.0-80.0); Platelet Count (auto) 295 10^3/uL (140-450); Red Blood Cells 4.04 10^6/uL (4.0-5.20); White Blood Cell 26.9 10^3/uL (4.4-10.8)
[2019-08-28 06:08] LABS: BUN/Creatinine Ratio 23.2; Bilirubin, Total 0.8 mg/dL (0.2-1.0); Total Protein 4.7 g/dL (6.4-8.2)
[2019-08-28 06:09] LABS: Red Cell Distribution Width 21.7 % (11.8-14.3)
[2019-08-28] MEDS ORDERED: POTASSIUM CHL 20MEQ/100ML 100 ML IV ONE ×2 (06:30→06:35)
[2019-08-28] MEDS: ALBUTEROL SULF 2.5 MG/0.5ML(0.5%) NEB SOLN HHN SCH ×5 (06:41→22:47)
--- NOTE | 2019-08-28 07:22 | NUR ---
REPORT RECEIVED FROM BAT BOY/GIRL RN
[2019-08-28] MEDS: SODIUM CHLORIDE 0.9% 1,000 ML IV SCH (08:30)
[2019-08-28] MEDS: MEROPENEM 500MG IVPB 50 ML IV SCH ×2 (08:40→20:09)
--- NOTE | 2019-08-28 08:41 | NUR ---
PATIENT PLACED ON BIPAP BY RT CANNON
--- NOTE | 2019-08-28 08:41 | NUR ---
PLACED PT ON BIPAP ON SETTINGS OF 14/5 BUR 12, 35% FIO2 FOR INCREASED WOB. B.S ARE COARSE. PT WEARING MEDIUM FACE MASK WITH NO BREAKDOWN ON FACE. BIPAP PLUGGED TO RED WALL OUTLET. BVM AT BEDSIDE. BIPAP ALARMS SET AND AUDIBLE AT [facility] RN STATION. GUILLERMO DAVE AWARE OF BIPAP PLACEMENT.
--- NOTE | 2019-08-28 09:10 | NUR ---
DR. BERMUDEZ PAGED AWAITING CALLBACK
[2019-08-28] MEDS ORDERED: FUROSEMIDE 100 MG/10ML VIAL IV ONE (09:15)
[2019-08-28] MEDS ORDERED: SODIUM CHLORIDE 0.9% 1,000 ML IV SCH (09:15)
--- NOTE | 2019-08-28 09:18 | NUR ---
DR. FRIAS UPDATED ON RESPIRATORY STATUS AND WORK OF BREATHING. ORDERS RECEIVED
[2019-08-28] MEDS: PANTOPRAZOLE 40 MG/10 ML VIAL INJ IV SCH (09:28)
[2019-08-28] MEDS: levoFLOXacin 500MG 100 ML IV SCH (09:28)
[2019-08-28] MEDS: METOPROLOL SUCCINATE XL 50 MG TAB PO SCH (09:34)
[2019-08-28] MEDS: AMIODARONE HCL 900 MG in DEXTROSE 500 ML IV SCH (09:35)
--- NOTE | 2019-08-28 09:35 | NUR ---
ABG OBTAINED, BIPAP SETTINGS CHANGED TO 12/5 BUR 12, 35% FIO2. RN JOLIE AWARE OF ABG RESULTS AND CHANGES TO BIPAP.
[2019-08-28] MEDS: ACETYLCYSTEINE 10 %(100MG/ML) SOL 4ML HHN SCH (10:19)
[2019-08-28] MEDS: POTASSIUM CHL 20MEQ/100ML 100 ML IV SCH ×2 (10:43→12:30)
--- NOTE | 2019-08-28 10:45 | NUR ---
FAMILY UPDATED ON PATIENT STATUS. ALL QUESTIONS AND CONCERNS ADDRESSED AT THIS TIME
[2019-08-28] MEDS: METOPROLOL TARTRATE 1MG/1ML-5ML VIAL IV PRN (11:20)
--- NOTE | 2019-08-28 11:22 | NUR ---
DR. BERMUDEZ AT BEDSIDE. ORDERS RECEIVED
[2019-08-28] MEDS ORDERED: POTASSIUM CHL 20MEQ/100ML 100 ML IV PRN (11:30)
[2019-08-28] MEDS: FUROSEMIDE INJECTION 100 MG in D5W 5% 100 ML IV SCH (12:49)
--- NOTE | 2019-08-28 13:12 | NUR ---
DR. PEREIRA AT BEDSIDE
--- NOTE | 2019-08-28 14:16 | NUR ---
NUTRITION FOLLOWUP NOTES Pt remains NPO since 08/18/19 per oil well perforator operator. RN reported pt has been extubated and has not been fed yet d/t to currently being on BiPAP. Please refer to nutrition recommendations below. Will continue to monitor NPO status, skin status, pertinent labs and weight trend. Will f/u in 2 to 3 days. Recommendations: 1) Advance gradually to oral Renal Specific 2g Na diet, when medically appropriate. 2) If still NPO in 48 hours, consider initiating EN support of Glucerna 1.2 Gus @ 50ml/hr as tolerated. 3) Continue current plan of care. Wt: 64.1 kg Est. Energy Needs: 3692-7771 kcal (25-30 kcal/kg BW). Est. Protein Needs: 59-76 gms/day (1.0-1.3 gms/kg BW). Labs 08/27: K 3.1 L, BUN 57 H, Cr 2.46 H, serum glucose 162 H, POC 159 H, Ca 7.6 L, P 6 H, TP 4.7 L, Albumin 1.6 L BS: 13, moderate risk, skin intact. PES: Problem 1) Altered nutrition related lab values r/t current medical condition aeb hypoproteinemia, hypocalcemia, hyperglycemia, elevated RFTs 2) Inadequate energy intake r/t current energy and protein needs aeb NPO, intubated, sedated status
--- NOTE | 2019-08-28 14:32 | NUR ---
PT TAKEN OFF BIPAP AT THIS TIME AND PLACED ON 8 LITERS SIMPLE MASK. SPO2 95%.
--- NOTE | 2019-08-28 14:45 | NUR ---
PATIENT MOVED TO ROOM 264
--- NOTE | 2019-08-28 15:29 | NUR ---
SWALLOW EVALUATION COMPLETE PER SPEECH THERAPIST DO NOT GIVE PATIENT FOOD OR WATER AT THIS TIME. PATIENT COUGHED WHEN GIVEN APPLE SAUCE
--- NOTE | 2019-08-28 15:38 | NUR ---
SWALLOW EVALUATED. PATIENT COUGHED IMMEDIATELY ON INTRODUCTION OF PUREE BOLUS. PATIENT IS VERY CONGESTED. UNSAFE FOR PO INTAKE AT THIS TIME. NURSING NOTIFIED.
[2019-08-28] MEDS: ENOXAPARIN SOD 30 MG/0.3 ML SYRINGE SC SCH (17:28)
--- NOTE | 2019-08-28 19:30 | NUR ---
REPORT GIVEN TO VLAD LI TO ASSUME CARE
--- NOTE | 2019-08-28 19:45 | NUR ---
Opening Shift Note Assumed care of patient, awake and alert, primary Azerbaijani speaking, Pt nodded or shook her head in order to answer yes or no. Breathing SOB, tachypneic with WOB. RT aware and put Pt on BIPAP at shift change. TLC at left IJ CDI site. Right Saran catheter at right IJ. Rosa's catheter hung to gravity with cloudy and sediments straw urine. Bed in low position, call light within reach, all alarms are audible, fall and safety precaution in place. Both arms on mittens. Removed both mittens and will monitor pulling/ confusion. Both arms swollen, off load on pillows. Instructed on POC, will continue to monitor for changes Q1hr and PRN.
[2019-08-28] MEDS: RIOCIGUAT 2 MG PO SCH (22:00)
--- NOTE | 2019-08-28 23:55 | NUR ---
Condition update/ SOB with WOB Breathing tachypneic in 40's with SOB and WOB, Pt unable to rest and looked uncomfortable and anxious. HR low 100's RR 40's POX 95% on O250% 14/7 BiPAP. RT recommended to ask for medicine for relax to help Pt calm down. Contacted Yoan LINARES, continue care. Addendum: 08/29/19 at 0352 by Diamante Jesus RN 00.20am Paged Yoan LINARES, await answer back. 00.59am New orders received, will administer Med as order, see order sheet and EMAR.
[2019-08-29] VITALS (15 sets, daily range): BP systolic 122–177; BP diastolic 37–81
[2019-08-29] MEDS: ACCU-CHEK COMFORT CURVE STRIP VI SCH ×4 (01:20→18:49)
[2019-08-29] MEDS ORDERED: FUROSEMIDE 100 MG/10ML VIAL IV ONE (01:30)
[2019-08-29] MEDS: AMIODARONE HCL 900 MG in DEXTROSE 500 ML IV SCH ×2 (01:38→17:04)
[2019-08-29] MEDS: IPRATROPIUM BROM 0.5 MG/2.5ML INH SOL NEB SCH ×6 (02:02→22:40)
[2019-08-29] MEDS: LINEZOLID 600MG/300ML 300 ML IV SCH ×2 (03:11→16:19)
[2019-08-29] MEDS: hydrALAZINE HCL 20 MG/ML VL IV PRN (03:15)
--- NOTE | 2019-08-29 04:00 | NUR ---
Condition update/ Patient bathe/linen change/ pain RT changed from BiPAP to FM for Pt. Pt still tachypneic and SOB. Patient given partial bed bath. Rosa's catheter care done. Optifoam at scrum intact, no pressure ulcer or redness. Skin integrity assessed for any changes, no new changes. Linens changed. Patient repositioned for comfort and prevent pressure ulcer. . Pt c/o pain generalized body, back, arms, legs while cleaning, will contact Dr. Milton.
[2019-08-29 05:21] LABS: Basophils # (auto) 0.1 10 ^3/uL (0-0.2); Eosinophils # (auto) 0 10 ^3/uL (0-0.8); Hemoglobin 10.8 g/dL (12.2-16.2); Mean Corpuscular Hemoglobin 26.9 pg (28.0-32.0)
[2019-08-29 05:23] LABS: Basophils % (auto) 0.3 % (0.0-2.0); Hematocrit 33.4 % (36.0-46.0); Lymphocytes # (auto) 0.2 10 ^3/uL (0.4-5.4); Lymphocytes % (auto) 0.9 % (10.0-50.0); Mean Corpuscular Hgb Conc. 32.2 g/dL (32.0-36.0); Mean Corpuscular Volume 83.5 fL (80.0-100.0); Monocytes # (auto) 0.4 10 ^3/uL (0-1.3); Monocytes % (auto) 1.8 % (0.0-12.0); Neutrophils # (auto) 23.5 10 ^3/uL (1.6-8.6); Platelet Count (auto) 312 10^3/uL (140-450); White Blood Cell 24.2 10^3/uL (4.4-10.8)
[2019-08-29 05:33] LABS: Red Cell Distribution Width 21.9 % (11.8-14.3)
[2019-08-29 05:37] LABS: Albumin 1.7 g/dL (3.4-5.0); Calcium 7.5 mg/dL (8.5-10.1)
[2019-08-29 05:40] LABS: BUN/Creatinine Ratio 21.3; Bilirubin, Total 0.9 mg/dL (0.2-1.0); Total Protein 5.1 g/dL (6.4-8.2)
[2019-08-29] MEDS: LEVALBUTEROL HCL 1.25 MG/3 ML NEB NEB SCH ×3 (05:45→22:40)
[2019-08-29] MEDS: InsuLIN REG 1unit/0.01ml Soln (100units/ml) SC SCH ×4 (06:00→18:41)
[2019-08-29] MEDS: RIOCIGUAT 2 MG PO SCH ×3 (06:00→22:00)
[2019-08-29] MEDS: LEVOTHYROXINE SODIUM 25 MCG TAB PO SCH (06:46)
--- NOTE | 2019-08-29 07:30 | NUR ---
AM ASSESSMENT COMPLETED. PT IS TACHYPNEIC RR IN THE MID 30'S TO 40'S CURRENTLY ON A FACE MASK AT 6 L/ MIN SPO2 IN THE UPPER 80'S TO MID 90'S PT'S LUNGS SOUNDS CONGESTED THROUGHOUT. COUGH PRODUCTIVE WITH STIMULATION. HR IN THE 120'S TO 130'S. PT CURRENTLY ON AMIODARONE GTT AT 1 MG/MIN, PT IN & OUT OF AFIB WITH SOME OCCASIONAL PACED BEATS. PACER OCCASIONALLY NOT CAPTURING. EDUCATED PT ON POC. REPOSITIONED FOR COMFORT. ALL PORTS OF LT TLC PATENT. DRESSING SOILED , NEEDS TO BE CHANGED. PT HAS A YOLANDA ON RT IJ DRESSING SOILED DRESSING NEEDS CHANGING.
[2019-08-29] MEDS: PANTOPRAZOLE 40 MG/10 ML VIAL INJ IV SCH (09:26)
[2019-08-29] MEDS: MEROPENEM 500MG IVPB 50 ML IV SCH ×2 (09:26→22:28)
[2019-08-29] MEDS: METOPROLOL SUCCINATE XL 50 MG TAB PO SCH (09:27)
[2019-08-29] MEDS: METOPROLOL TARTRATE 1MG/1ML-5ML VIAL IV PRN (09:28)
[2019-08-29] MEDS: FUROSEMIDE INJECTION 100 MG in D5W 5% 100 ML IV SCH (10:27)
[2019-08-29] MEDS: ALBUMIN 25% 100 ML IV SCH (11:55)
--- NOTE | 2019-08-29 12:45 | NUR ---
BOTH CENTRAL LINE DRESSING CHANGED RT IG YOALNDA AND LT IJ TLC. BOTH DRESSINGS WERE SOILED. PT TOLERATED PROCEDURE WELL.
--- NOTE | 2019-08-29 13:45 | NUR ---
RESPIRATORY/PAIN PT WITH RR 38 AND O2 SAT OF 88%. TRIED TO INSTRUCT PT TO SLOW DOWN HER BREATHING WITHOUT SUCCESS. CALLED RT BURT, WHO CAME TO THE ROOM. O2 SAT OF 85% AND PT WAS CHANGED FROM 6L OXYMIZER TO SIMPLE MASK AT 7 L/M WITH O2 SAT THEN UP TO RR 95% AND 35. PT C/O PAIN TO HER LOWER BACK AND BOTH OF HER LEGS. NO PAIN MED ON ORDER AND WILL CONTACT MD FOR ORDER. PT WITH VERY DRY MOUTH AND NPO DUE TO DIFFICULTY SWALLOWING. SWABBED MOUTH.
--- NOTE | 2019-08-29 14:02 | NUR ---
Pain/MD Called Dr Milton and left a message informing him of the pt's c/o pain to her lower back and both of her legs, and requesting an order for pain medicine. Awaiting a call back.
--- NOTE | 2019-08-29 15:28 | NUR ---
DE. PEREIRA CALLED BACK. I UPDATED HIM ON PT'S INCREASED PAIN ANXIETY AND S.O.B PT NOT GOING TO GET HD TODAY PT IS CURRENTLY ON LASIX GTT WITH ADEQUATE UOP, ELECTROLYTES ARE OK. NET DEVELOPMENT MANAGER ALREADY ROUNDED ON PT. ND RX ANXIETY MEDICATION & PAIN MEDICATION.
[2019-08-29] MEDS ORDERED: HYDROmorphone HCL 2 MG/ML VL IV PRN (15:30)
[2019-08-29] MEDS: ENOXAPARIN SOD 30 MG/0.3 ML SYRINGE SC SCH (18:52)
[2019-08-30] VITALS (13 sets, daily range): BP systolic 104–153; BP diastolic 47–87
[2019-08-30] MEDS: ALBUMIN 25% 100 ML IV SCH ×3 (00:38→21:57)
[2019-08-30] MEDS: LORazepam 2MG/ML-1ML VIAL IV PRN ×3 (00:43→21:58)
[2019-08-30] MEDS: IPRATROPIUM BROM 0.5 MG/2.5ML INH SOL NEB SCH ×6 (02:10→22:16)
[2019-08-30] MEDS: LINEZOLID 600MG/300ML 300 ML IV SCH (03:44)
[2019-08-30] MEDS: ACCU-CHEK COMFORT CURVE STRIP VI SCH ×5 (06:00→23:59)
[2019-08-30] MEDS: InsuLIN REG 1unit/0.01ml Soln (100units/ml) SC SCH ×5 (06:00→23:58)
[2019-08-30] MEDS: RIOCIGUAT 2 MG PO SCH ×3 (06:00→22:00)
[2019-08-30] MEDS: LEVALBUTEROL HCL 1.25 MG/3 ML NEB NEB SCH ×3 (06:07→18:51)
[2019-08-30] MEDS: LEVOTHYROXINE SODIUM 25 MCG TAB PO SCH (06:46)
--- NOTE | 2019-08-30 08:00 | NUR ---
Opening Shift Note Assumed care of patient, awake oriented x2, re-oriented to time and situation. Primary Bengali speaking but able to understand basic Cambodian. No S/S of pain. Patient SOB, om BIPAP 14/5, 50% FIO2, rate 12, saturation 95%. Maintained patient NPO, plan to do another swallow eval. See interventions for complete assessment. Bed locked on low position, side rails up x2, bed alarms on at all times, call carson within reach, instructed on POC and to call for assist PRN, will continue to monitor for changes Q1hr and PRN.
[2019-08-30] MEDS: MEROPENEM 500MG IVPB 50 ML IV SCH (08:33)
[2019-08-30] MEDS: FUROSEMIDE INJECTION 100 MG in D5W 5% 100 ML IV SCH ×2 (08:33→17:44)
[2019-08-30] MEDS: PANTOPRAZOLE 40 MG/10 ML VIAL INJ IV SCH (09:12)
[2019-08-30] MEDS: levoFLOXacin 500MG 100 ML IV SCH (09:12)
[2019-08-30] MEDS: AMIODARONE HCL 900 MG in DEXTROSE 500 ML IV SCH ×2 (09:13→23:53)
[2019-08-30] MEDS: METOPROLOL SUCCINATE XL 50 MG TAB PO SCH (10:00)
--- NOTE | 2019-08-30 10:00 | NUR ---
Dr Carrion at bedside, updated on patient's status. Patient seen and examined. Will carry out new orders.
--- NOTE | 2019-08-30 11:16 | NUR ---
Received call from patient's niece Ping and able to provide password. Updated on patient's status and POC. All questions and concerns addressed.
--- NOTE | 2019-08-30 12:40 | NUR ---
Patient had small BM at this time, perineal care provided, reposition at this time as well.
--- NOTE | 2019-08-30 15:38 | NUR ---
Spoke to infection control Spencer Rodriguez regarding patient's sputum culture positive for H. Influenza. Michael states patient need to be on droplet precaution.
--- NOTE | 2019-08-30 17:08 | NUR ---
Dr Milton at bedside, updated on patient's status. Patient seen and examined. Received verbal order to increased Lasix drip to 10ml/hr and start patient on Solumedrol IV. Orders read back and verified. Will carry out.
[2019-08-30] MEDS ORDERED: FUROSEMIDE INJECTION 100 MG in D5W 5% 100 ML IV SCH (17:15)
[2019-08-30] MEDS: ENOXAPARIN SOD 30 MG/0.3 ML SYRINGE SC SCH (17:44)
--- NOTE | 2019-08-30 19:15 | NUR ---
Dr Gurrola at bedside, updated on patient's status. Patient seen and examined. Will carry out new orders.
--- NOTE | 2019-08-30 19:15 | NUR ---
Opening Shift Note Assumed care of patient in room 265. Patient is awake and alert. Connected to bipap and saturation above 90%. Insructed on POC and to call for assist PRN with call light within reach. Complete physical assessment under interventions.
[2019-08-30] MEDS: methylPREDNISolone SOD SUCC 40 MG/ML VL IV SCH (21:58)
[2019-08-31] VITALS (17 sets, daily range): BP systolic 103–171; BP diastolic 33–78
[2019-08-31] MEDS: IPRATROPIUM BROM 0.5 MG/2.5ML INH SOL NEB SCH ×6 (02:19→22:53)
[2019-08-31] MEDS: FUROSEMIDE INJECTION 100 MG in D5W 5% 100 ML IV SCH ×2 (02:28→15:32)
--- NOTE | 2019-08-31 02:30 | NUR ---
Tonyan changed Bed bath given. Pt had a small bm. Bed pads changed.
--- NOTE | 2019-08-31 02:40 | NUR ---
Pt educated To not removed piece on bipap machine which triggers alarm.
[2019-08-31 05:20] LABS: Albumin 2.7 g/dL (3.4-5.0); Calcium 7.6 mg/dL (8.5-10.1); Potassium 3.3 mmol/L (3.5-5.1)
[2019-08-31 05:24] LABS: BUN/Creatinine Ratio 20.2; Bilirubin, Total 0.7 mg/dL (0.2-1.0); Total Protein 5.4 g/dL (6.4-8.2)
[2019-08-31] MEDS: methylPREDNISolone SOD SUCC 40 MG/ML VL IV SCH ×3 (05:51→21:40)
[2019-08-31] MEDS: LEVOTHYROXINE SODIUM 25 MCG TAB PO SCH (06:00)
[2019-08-31] MEDS: RIOCIGUAT 2 MG PO SCH ×3 (06:00→21:40)
[2019-08-31] MEDS: ACCU-CHEK COMFORT CURVE STRIP VI SCH ×3 (06:00→17:23)
[2019-08-31] MEDS: InsuLIN REG 1unit/0.01ml Soln (100units/ml) SC SCH ×3 (06:57→17:50)
--- NOTE | 2019-08-31 07:11 | NUR ---
endorsed care to day nurse Pt still on bipap. vss.
[2019-08-31] MEDS: LEVALBUTEROL HCL 1.25 MG/3 ML NEB NEB SCH ×3 (07:29→19:01)
--- NOTE | 2019-08-31 07:30 | NUR ---
Respiratory note: RECEIVED PATIENT ON RENTAL V60 BIPAP FITTED WITH A MEDIUM FULL FACE MASK AND BEING VENTILATED WITH THE CHARTED SETTINGS. SPO2 92%, LUNG SOUNDS DIM T/O. FACE SHOWING NO SIGNS OF BREAKDOWN AND PROTECTA-GEL IS IN PLACE. PATIENT IS RESTING COMFORTABLY AND TOLERATING VENT WELL, NO CHANGES MADE. BIPAP PLUGGED INTO RED OUTLET AND ALL ALARMS ARE SET AND AUDIBLE. WILL CONTINUE TO ASSESS PATIENT WELL VENTILATOR FUNCTION. [employer] INLINE.
--- NOTE | 2019-08-31 07:30 | NUR ---
Opening Shift Note Assumed care of patient, awake and oriented x2, re-oriented to time and situation. Patient primary Portuguese speaking but able to communicate in Japanese. No S/S of pain. Patient SOB, on BIPAP 14/5, rate 12, 60% FIO2, saturation 93%. Maintained patient NPO, plan to do another swallow eval once patient's respiratory status improves. See interventions for complete assessment. Bed locked on low position, side rails up x2, bed alarms on at all times, call carson within reach, instructed on POC and to call for assist PRN, will continue to monitor for changes Q1hr and PRN.
[2019-08-31] MEDS ORDERED: POTASSIUM CHLORIDE 40 MEQ, LIDOCAINE 1% (LOCAL ANESTH.) 4 ML in SODIUM CHL 0.9% 100 ML IV ONE (09:15)
[2019-08-31] MEDS: METOPROLOL SUCCINATE XL 50 MG TAB PO SCH (10:00)
--- NOTE | 2019-08-31 11:00 | NUR ---
Dr Carrion at bedside, updated on patient's status. Patient seen and examined. Will carry out new orders.
[2019-08-31] MEDS: PANTOPRAZOLE 40 MG/10 ML VIAL INJ IV SCH (11:32)
--- NOTE | 2019-08-31 11:53 | NUR ---
Patient's accucheck 136mg/dl, 2 units of Regular Insulin held because patient is NPO.
--- NOTE | 2019-08-31 12:04 | NUR ---
Spoke to patient's niece Ping on the phone, able to provide password. Updated on patient's status and POC, verbalized understanding. All questions and concerns addressed.
--- NOTE | 2019-08-31 12:40 | NUR ---
Dr Gurrola at bedside, updated on patient's status. Patient seen and examined. Plan to do Thoracentesis. Received verbal order for chest xray. Orders read back and verified. Will carry out.
--- NOTE | 2019-08-31 13:25 | NUR ---
Spoke to patient's niece Ping Murphy regarding planned Thoracentesis. Telephone consent given to this RN with Zoya LI. All questions and concerns addressed.
--- NOTE | 2019-08-31 14:00 | NUR ---
Ultrasound guided RT thoracentesis done at bedside, 150ml pleural fluid removed, sample sent to lab. VS WNL, HR 69, RR 22, BP 120/33, saturation 92% on the same BIPAP setting. Will continue to monitor.
[2019-08-31] MEDS ORDERED: AZTREONAM 1GM INJ 0.5 GM in D5W 5% 50 ML IV ONE (14:45)
--- NOTE | 2019-08-31 14:47 | NUR ---
This RN came back from lunch, pleural fluid sample sent to lab by Marisela LI.
--- NOTE | 2019-08-31 15:02 | NUR ---
Spoke to patient's niece Ping Murphy regarding plan for intubation, niece states "It's a hard decision although I already informed family regarding situation but I'm at work right now. I will let my Luis Eduardo Murphy to call you." Awaiting call from .
--- NOTE | 2019-08-31 15:19 | NUR ---
Received call from Ping's Luis Eduardo who's able to provide password. Updated on patient's status and POC, possible intubation. Luis Eduardo states "It's a hard decision but I know that as of now she's full code, but also we don't want her to suffer, we want her to be comfortable." Let me call my again and she'll call you back. All questions and concerns addressed.
[2019-08-31] MEDS: POTASSIUM CHL 20MEQ/100ML 100 ML IV SCH ×2 (15:31→16:55)
--- NOTE | 2019-08-31 16:11 | NUR ---
Spoke to Dr Milton over the phone, updated on patient's status. Informed patient sinus rhythm, HR low 60's, received telephone order to decreased Amiodarone drip to 0.5mg/min. MD Informed of possible re-intubation by Dr Gurrola due to patient's SOB. Informed patient's next of kin trying to decide on full code vs DNR but they have questions for MD and would like him to call them. Dr Milton verbalized understanding and stated "I'll talk to them later. that's no a problem."
--- NOTE | 2019-08-31 16:47 | NUR ---
Received call from Luis Eduardo regarding family's decision on her code status and states "I talked to my and the conclusion would be we're going to make her DNR. We know she doesn't want to be on a ventilator. We also wanted her to be comfortable and pain free." Will call patient's niece Ping.
[2019-08-31] MEDS: AMIODARONE HCL 900 MG in DEXTROSE 500 ML IV SCH ×2 (16:56→21:41)
--- NOTE | 2019-08-31 17:09 | NUR ---
Spoke to patient's niece Ping regarding patient's DNR code status. Niece states "I'm finishing some work right now, I'll call you back."
[2019-08-31] MEDS: ENOXAPARIN SOD 30 MG/0.3 ML SYRINGE SC SCH (17:24)
--- NOTE | 2019-08-31 17:36 | NUR ---
Received call from Ping Murphy changing patient's status from Full code to DNR, comfort measures only stating "We don't want chest compression and intubation, we just want her to be comfortable." Ping also spoke to Jennifer LI regarding DNR status. Code status form signed by this RN and Alea LI. Paged Dr Milton, awaiting call back.
--- NOTE | 2019-08-31 19:19 | NUR ---
Patient's niece Ping and Luis Eduardo at bedside.
--- NOTE | 2019-08-31 19:30 | NUR ---
opening note patient on cipap. complete physical assessment under interventions. call light within reach. will continue to monitor.
--- NOTE | 2019-08-31 20:29 | NUR ---
MD PEREIRA updated on patients code status. No orders given to change anything.
--- NOTE | 2019-08-31 21:30 | NUR ---
pharmacy called antibiotic for 0600 on 09/20 not in med room. called pharmacy to send one additional for the morning.
[2019-08-31] MEDS: AZTREONAM 1GM INJ 0.5 GM in D5W 5% 50 ML IV SCH (21:40)
[2019-09-01] VITALS: BP 123/59
[2019-09-01 00:10] VITALS: BP 126/71
[2019-09-01] MEDS: ACCU-CHEK COMFORT CURVE STRIP VI SCH ×2 (00:14→06:17)
[2019-09-01] MEDS: InsuLIN REG 1unit/0.01ml Soln (100units/ml) SC SCH ×2 (00:14→06:17)
[2019-09-01] MEDS: IPRATROPIUM BROM 0.5 MG/2.5ML INH SOL NEB SCH ×2 (02:17→06:43)
[2019-09-01 02:20] VITALS: BP 122/52
[2019-09-01 04:00] VITALS: BP 137/39
[2019-09-01 04:10] VITALS: BP 147/45
[2019-09-01] MEDS: FUROSEMIDE INJECTION 100 MG in D5W 5% 100 ML IV SCH (04:22)
[2019-09-01] MEDS: RIOCIGUAT 2 MG PO SCH (06:00)
[2019-09-01] MEDS: AZTREONAM 1GM INJ 0.5 GM in D5W 5% 50 ML IV SCH (06:00)
[2019-09-01] MEDS: LEVOTHYROXINE SODIUM 25 MCG TAB PO SCH (06:17)
[2019-09-01] MEDS: methylPREDNISolone SOD SUCC 40 MG/ML VL IV SCH (06:18)
[2019-09-01 06:43] VITALS: BP 130/70
[2019-09-01] MEDS: LEVALBUTEROL HCL 1.25 MG/3 ML NEB NEB SCH (06:43)
--- NOTE | 2019-09-01 07:24 | NUR ---
endorsed care to day nurse. vss.
[2019-09-01 07:26] LABS: Albumin 2.6 g/dL (3.4-5.0); Calcium 7.4 mg/dL (8.5-10.1)
[2019-09-01 07:29] LABS: BUN/Creatinine Ratio 21.8; Bilirubin, Total 0.6 mg/dL (0.2-1.0); Total Protein 5.6 g/dL (6.4-8.2)
--- NOTE | 2019-09-01 07:35 | NUR ---
SBP 60 mmHg, HE 60-65, RT at the bedside. Addendum: 09/01/19 at 0925 by HELLEN PERALTA RN RN HR 60-65,
--- NOTE | 2019-09-01 07:45 | NUR ---
Called DAE (Kelley), called and spoke to Kimberly (shelby), patient's condition is getting worse.
--- NOTE | 2019-09-01 07:52 | NUR ---
Paged hospitalist for pronounce .
--- NOTE | 2019-09-01 08:00 | NUR ---
Erik WAGNER at the bedside for pronounced .
--- NOTE | 2019-09-01 09:19 | NUR ---
At 8.51am, notified Dr. Milton about , made aware, time of pronounced at 7.50am At 8.55 am, called and spoke to Ping (niece), families will come to the hospital around 10.00am. At 9.01am, called [employer] [phone], provided the information. Waiting to receive a call back. At 09.05 am called and spoke to Javier from [facility] [employer] [phone], provided the information, Case # [id number].
--- NOTE | 2019-09-01 09:30 | NUR ---
Hay Farmer's case number [id number]
[2019-09-01] MEDS ORDERED: FLUCONAZOLE 200MG/100ML 100 ML IV SCH (10:00)
--- NOTE | 2019-09-01 10:51 | NUR ---
Received a call from Jules Shell, got a release number [phone].
--- NOTE | 2019-09-01 11:30 | NUR ---
Valerie Sawyer) at the bedside, signed the paper (contact number) [phone]. Addendum: 09/01/19 at 1234 by HELLEN PERALTA RN RN He took her belonging back as well.
--- NOTE | 2019-09-01 12:33 | NUR ---
Body was brought to morgue room at this time.
--- NOTE | 2019-09-01 12:57 | NUR ---
Received a call from [facility] ([phone]), will chart picker her body soon.
[2019-09-01] MEDS ORDERED: AMIODARONE 450mg/250ml AE 250 ML IV SCH (13:15)
== END 2019-09-01 07:50 | disposition expired | DRG 870 ==
LOC: ER 12:01 → EDBD 12:01 → TELE 12:02 → ICU WEST 22:59 → DOU IN ICU 08-27 23:20
PROVIDERS: ADMIT Internal Medicine Cardiovascular Disease; ATTEND Internal Medicine Cardiovascular Disease
PROC: 5A09357 Assistance with Respiratory Ventilation, Less than 24 Consecutive Hours, Continuous Positive Airway Pressure (ICD-10-PCS; 2019-08-17)
PROC: 5A1955Z Respiratory Ventilation, Greater than 96 Consecutive Hours (ICD-10-PCS; principal; 2019-08-18)
PROC: 0BH17EZ Insertion of Endotracheal Airway into Trachea, Via Natural or Artificial Opening (ICD-10-PCS; 2019-08-18)
PROC: 30233N1 Transfusion of Nonautologous Red Blood Cells into Peripheral Vein, Percutaneous Approach (ICD-10-PCS; 2019-08-18)
PROC: 02HV33Z Insertion of Infusion Device into Superior Vena Cava, Percutaneous Approach (ICD-10-PCS; 2019-08-21)
PROC: B548ZZA Ultrasonography of Superior Vena Cava, Guidance (ICD-10-PCS; 2019-08-21)
PROC: 02HV33Z Insertion of Infusion Device into Superior Vena Cava, Percutaneous Approach (ICD-10-PCS; 2019-08-24)
PROC: B548ZZA Ultrasonography of Superior Vena Cava, Guidance (ICD-10-PCS; 2019-08-24)
PROC: 0W993ZZ Drainage of Right Pleural Cavity, Percutaneous Approach (ICD-10-PCS; 2019-08-25)
PROC: 0BC78ZZ Extirpation of Matter from Left Main Bronchus, Via Natural or Artificial Opening Endoscopic (ICD-10-PCS; 2019-08-25)
PROC: 5A1D70Z Performance of Urinary Filtration, Intermittent, Less than 6 Hours Per Day (ICD-10-PCS; 2019-08-25)
PROC: 0W9B3ZZ Drainage of Left Pleural Cavity, Percutaneous Approach (ICD-10-PCS; 2019-08-26)
PROC: 5A1D70Z Performance of Urinary Filtration, Intermittent, Less than 6 Hours Per Day (ICD-10-PCS; 2019-08-26)
PROC: 5A09357 Assistance with Respiratory Ventilation, Less than 24 Consecutive Hours, Continuous Positive Airway Pressure (ICD-10-PCS; 2019-08-28)
PROC: 5A09357 Assistance with Respiratory Ventilation, Less than 24 Consecutive Hours, Continuous Positive Airway Pressure (ICD-10-PCS; 2019-08-29)
PROC: 0W993ZZ Drainage of Right Pleural Cavity, Percutaneous Approach (ICD-10-PCS; 2019-08-30)
PROC: 5A09357 Assistance with Respiratory Ventilation, Less than 24 Consecutive Hours, Continuous Positive Airway Pressure (ICD-10-PCS; 2019-08-30)
PROC: 5A09357 Assistance with Respiratory Ventilation, Less than 24 Consecutive Hours, Continuous Positive Airway Pressure (ICD-10-PCS; 2019-08-31)
PROC: 5A09357 Assistance with Respiratory Ventilation, Less than 24 Consecutive Hours, Continuous Positive Airway Pressure (ICD-10-PCS; 2019-09-01)
DX: A41.9 Sepsis, unspecified organism (principal); J96.01 Acute respiratory failure with hypoxia; N17.0 Acute kidney failure with tubular necrosis; J11.00 Influenza due to unidentified influenza virus with unspecified type of pneumonia; R65.21 Severe sepsis with septic shock; N18.6 End stage renal disease; I50.31 Acute diastolic (congestive) heart failure; J15.6 Pneumonia due to other Gram-negative bacteria; I13.2 Hypertensive heart and chronic kidney disease with heart failure and with stage 5 chronic kidney disease, or end stage renal disease; D64.9 Anemia, unspecified; E87.5 Hyperkalemia; E88.09 Other disorders of plasma-protein metabolism, not elsewhere classified; I27.21 Secondary pulmonary arterial hypertension; E11.22 Type 2 diabetes mellitus with diabetic chronic kidney disease; T38.0X5A Adverse effect of glucocorticoids and synthetic analogues, initial encounter; E11.21 Type 2 diabetes mellitus with diabetic nephropathy; I48.91 Unspecified atrial fibrillation
CPT/HCPCS: 10022; 32555; 36415; 36600; 71045; 76775; 76942; 80048; 80053; 80074; 81001; 82570; 82728; 82805; 82962; 83540; 83550; 83605; 83735; 83880; 83986; 84100; 84132; 84156; 84300; 84484; 85007; 85025; 85027; 85610; 85730; 86850; 86900; 86901; 86920; 87040; 87070; 87076; 87077; 87081; 87205; 87804; 89051; 90935; 92610; 93005; 94002; 94003; 94640; 94660; 96361; 96374; 96375; 99291; C9113; G0378; J0132; J0171; J0330; J0885; J1815; J1956; J2001; J2185; J2250; J2543; J2704; J3480; J7060; P9047